=== PATIENT | female | born 1940 | race Caucasian/White ===

== ENCOUNTER 2016-10-10 07:59 | Observation (INO) ==
[2016-10-10] MEDS ORDERED: Aspirin 81 MG TAB.CHEW PO ONE (08:02)
[2016-10-10 08:18] LABS: Basophils % 0.5 %; Eosinophils # 0.2 K/mcL (0.0-0.6); Hematocrit 43.5 % (35.3-44.9); Hemoglobin 13.9 g/dL (11.5-15.4); Immature Granulocytes % 0.3 % (0-4); Immature Platelets 6.9 % (1.1-6.1); Lymphocytes # 1.5 K/mcL (0.6-4.6); Lymphocytes % 22.6 %; Mean Corpuscular Hemoglobin 29.2 pg (28.0-33.3); Mean Corpuscular Volume 91.4 fL (83.0-100.0); Mean Platelet Volume 10.7 fL (9.4-12.4); Monocytes # 0.7 K/mcL (0.0-1.3); Monocytes % 10.5 %; Neutrophils # 4.2 K/mcL (1.6-8.9); Platelet Count 242 K/mcL (140-400); Red Blood Count 4.76 M/mcL (3.82-4.97); Red Cell Distribution Width 13.5 % (11.5-14.5); Segmented Neutrophils % 63.1 %
[2016-10-10 08:23] LABS: INR 1.2
--- NOTE | 2016-10-10 08:24 | Emergency Department Note ---
Disposition Clinical Impression: Atrial fibrillation with RVR Chest pain Qualifiers: Chest pain type: unspecified Qualified Code(s): R07.9 - Chest pain, unspecified Disposition: Admitted As Inpatient Condition: Fair Referrals: Noemí Blount MD [Primary Care Provider] - Forms: ED Satisfaction Letter Time of Disposition: 09:08 Arrhythmia/Palpitations HPI - General Chief Complaint: ED Chest Pain Stated Complaint: chest pressure, hx a-fib Time Seen by Provider: 10/10/16 08:02 Source: patient, family Mode of arrival: ambulatory Limitations: no limitations Nursing Notes Reviewed: Yes Vital Signs Reviewed: Yes - History of Present Illness HPI Narrative: "Alert and oriented nontoxic appearing 76-year-old female presents to emergency Department for chief complaint of" an irregular heartbeat". The patient states that she awoke this morning at approximately 5:00 AM to a sensation of chest pressure and the feeling of palpitations. She states that she had pressure underneath her sternum that she rates a 8 out of 10 on a 10 point scale. This pressure is still present at the time of her emergency department visit. She also states that she felt as though her "heart was fluttering". She states that she has a history of paroxysmal atrial fibrillation. She is on oral diltiazem and metoprolol for this. She does complain of several days' worth of near syncope, shortness of breath, diaphoresis. She denies any radiation of this chest pain or pressure into her upper extremity, neck, or jaw. She denies any fevers, chills, or cough. She denies any noticeable new edema of her lower extremities. She denies vomiting, however she states that she has been extremely nauseous for the past couple of days. She denies any abdominal pain or blood in her stool. She states that she has had numerous episodes of paroxysmal atrial fibrillation, of which, several have required electrical cardioversion. Her cut in station operator is Dr. Kumar. Pt Subjective Complaint: palpitations, irregular heart beat Onset (ago): hour(s) (3 hours ago) Duration: constant Severity: moderate Context: occurred during rest Arrhythmia History: atrial fibrillation, history of electrical cardioversion Associated symptoms: Reports: chest pain, shortness of breath, near-syncope, nausea, diaphoresis - Related Data Home Medications Medication Instructions Recorded Confirmed Ascorbic Acid [Vitamin C] 500 mg PO DAILY 04/18/15 10/05/16 Aspirin 81 mg PO DAILY 04/18/15 10/05/16 Folic Acid 1 mg PO DAILY 04/18/15 10/05/16 Lovastatin [Mevacor] 20 mg PO HS 04/18/15 10/05/16 Metoprolol Tartrate [Lopressor] 100 mg PO BID 04/18/15 10/05/16 Multivit-Min/FA/Lycopen/Lutein 1 tab PO DAILY 04/18/15 10/05/16 [Centrum Silver Tablet] Ranitidine HCl [Zantac] 150 mg PO BID 04/18/15 10/05/16 LORazepam [Ativan] 0.5 mg PO HS PRN 01/09/16 10/05/16 Albuterol Sulfate [Albuterol 8.5 gm IH DAILY 02/14/16 10/05/16 Inhaler] Cetirizine HCl [Zyrtec] 10 mg PO DAILY 02/14/16 10/05/16 Docusate [Colace] 100 mg PO BID PRN 02/14/16 10/05/16 Losartan Potassium [Cozaar] 25 mg PO DAILY 02/14/16 10/05/16 Nystatin POWDER [Nystop] 1 appl TP BID 02/14/16 10/05/16 TraMADol [Ultram] 50 mg PO Q6HR 02/14/16 10/05/16 Previous Rx's Medication Instructions Recorded Ondansetron HCl [Zofran] 4 mg PO Q4H PRN #20 tablet 01/11/16 Ascorbate Calcium [Vitamin C] 1 tab PO DAILY #30 tablet 01/31/16 Docusate [Colace] 1 cap PO BID #60 capsule 02/21/16 Lactulose [Enulose] 15 ml PO BID #900 mls 02/28/16 Potassium Chloride [Klor-Con 1 tab PO DAILY #30 capsule.er 04/08/16 Sprinkle] Lactobacillus Acidophilus 1 each PO DAILY #30 capsule 10/05/16 [Acidophilus Lactobacillus] Levofloxacin [Levaquin] 500 mg PO DAILY #5 tablet 10/05/16 MetroNIDAZOLE [Flagyl] 500 mg PO TID #15 tablet 10/05/16 Allergies Allergy/AdvReac Type Severity Reaction Status Date / Time Penicillins Allergy Rash Verified 02/11/16 09:29 BRANDON Inhibitors AdvReac Cough Verified 02/14/16 07:43 All systems ED: reviewed and negative except as stated. Constitutional: Reports: as per HPI, other (Dizziness). Denies: fever, chills, weakness, weight change Cardiovascular: Reports: as per HPI, chest pain, palpitations, dyspnea on exertion. Denies: orthopnea, edema, syncope (Dizziness) Respiratory: Reports: as per HPI, dyspnea. Denies: cough, wheezes, hemoptysis, stridor, sputum production Gastrointestinal: Reports: nausea. Denies: abdominal pain, vomiting, diarrhea, constipation, hematemesis, melena, hematochezia Musculoskeletal: Denies: back pain, neck pain, arthralgia, myalgia Integumentary: Denies: rash, abrasion, lesions Neurological: Reports: headache. Denies: weakness, numbness, paresthesias, confusion, abnormal gait, vertigo Psychiatric: Denies: anxiety, depression, suicidal thoughts, homicidal thoughts , auditory hallucinations, visual hallucinations Endocrine: Denies: fatigue Past Medical History - Past Medical History Attestation: Yes The following information was validated with the patient. Source: patient Medical history: Reports: arthritis, atrial fibrillation, cancer, GERD, hyperlipidemia, hypertension, SVT, other Surgical history: Reports: appendectomy, cancer surgery, cholecystectomy, hysterectomy, NELLA/BSO, other Psychiatric history: Reports: anxiety PLUG STITCHER history: Reports: bilateral tubal ligation - Social History Smoking Status: Never smoker Smokeless Tobacco Status: No Alcohol use: Reports: none Drug use: Reports: none Physical Exam - General Limitations: no limitations General appearance: alert, in no apparent distress - Head Head exam: atraumatic, normocephalic, normal inspection - Eye Eye exam: Present: normal appearance, PERRL, EOMI. Absent: nystagmus - ENT ENT exam: mucous membranes moist - Neck Neck exam: Present: normal inspection, full ROM, trachea midline - Chest Chest inspection: Present: normal inspection, symmetric chest wall rise - Respiratory Respiratory exam: Present: normal lung sounds bilaterally. Absent: respiratory distress, wheezes, stridor, accessory muscle use, prolonged expiratory phase - Cardiovascular Cardiovascular exam: Present: regular rate, normal rhythm, normal heart sounds - Abdominal Exam Abdominal exam: Present: soft, Non-Tender, normal bowel sounds. Absent: tenderness, distention, guarding, rebound, rigidity - Extremities Exam Extremities exam: Present: normal inspection, full ROM. Absent: tenderness, pedal edema - Back Exam Back exam: Present: normal inspection, full ROM. Absent: tenderness - Neurological Exam Neurological exam: Present: alert, oriented X3 - Psychiatric Psychiatric exam: Present: normal affect, normal mood - Skin Skin exam: Present: warm, dry, intact, normal color. Absent: rash, cyanosis, diaphoresis, erythema, pallor, mottled Course Course Narrative: At this time, cardiac labs as well as a chest x-ray are pending. Aspirin has been administered. Plan to initiate any Cardizem drip due to the patient's atrial fibrillation with RVR up to a rate of 160 bpm. Plan to admit this patient to the hospitalist service for chest pain rule out and atrial fibrillation. 0850: Upon reexamination, the patient is still in atrial fibrillation, however her rate is now controlled at a rate of between 85 and 95 bpm. The patient has not yet been started on the order Cardizem drip. At this time, we will hold off on the Cardizem drip. I have discussed this with Dr. Sheikh. Dr. Sheikh is in agreement. I have discussed this patient's case with Dr. Sheikh. Dr. Sheikh has had a [id number] evaluation with the patient and agrees with the above plan. 0900: I spoke with Dr. Kirkpatrick of the hospitalist service. Dr. Kirkpatrick accepts the patient for admission for further evaluation of chest pain and atrial fibrillation. Vital Signs Temperature 97.1 F L 10/10/16 08:05 Pulse Rate 132 10/10/16 08:05 Respiratory Rate 18 10/10/16 08:05 Blood Pressure 153/125 10/10/16 08:05 O2 Sat by Pulse Oximetry 99 10/10/16 08:05 Temperature 97.1 F L 10/10/16 08:05 Pulse Rate 112 10/10/16 08:22 Respiratory Rate 18 10/10/16 08:22 Blood Pressure 139/85 10/10/16 08:22 O2 Sat by Pulse Oximetry 98 10/10/16 08:22 Oxygen Delivery Oxygen Delivery Room Air Arrhythmia/Palpitations - Medical Records Medical records reviewed: Yes I reviewed the patient's medical records. - Lab Data Lab results reviewed: Yes I reviewed the patient's lab results. Result diagrams: 10/10/16 08:12 10/10/16 08:12 Lab Results 10/10/16 10/10/16 10/10/16 Range/Units 08:12 08:12 08:12 WBC 6.6 (4.3-11.1) K/mcL RBC 4.76 (3.82-4.97) M/mcL Hgb 13.9 (11.5-15.4) g/dL Hct 43.5 (35.3-44.9) % MCV 91.4 (83.0-100.0) fL MCH 29.2 (28.0-33.3) pg MCHC 32.0 (31.6-35.5) g/dL RDW 13.5 (11.5-14.5) % Plt Count 242 (140-400) K/mcL MPV 10.7 (9.4-12.4) fL Immature Gran % 0.3 (0-4) % Seg Neutrophils % 63.1 % Lymphocytes % 22.6 % Monocytes % 10.5 % Eosinophils % 3.0 % Basophils % 0.5 % Neutrophils # 4.2 (1.6-8.9) K/mcL Lymphocytes # 1.5 (0.6-4.6) K/mcL Monocytes # 0.7 (0.0-1.3) K/mcL Eosinophils # 0.2 (0.0-0.6) K/mcL Basophils # 0.0 (0.0-0.2) K/mcL Immature Plt Fraction 6.9 H (1.1-6.1) % PT 13.0 H (9.4-12.1) Seconds INR 1.2 APTT 38.1 H (26.0-36.0) Seconds Sodium (136-145) mEq/L Potassium (3.5-4.5) mEq/L Chloride (98-109) mEq/L Carbon Dioxide (19-29) mEq/L BUN (7-20) mg/dL Creatinine (0.57-1.11) mg/dL Est GFR ( Amer) (> 60) Est GFR (Non-Af Amer) (> 60) BUN/Creatinine Ratio (6-26) Glucose (70-99) mg/dL Calculated Osmolality (280-300) Calcium (8.6-10.8) mg/dL Troponin I (0-0.03) ng/mL B-Natriuretic Peptide 262 H (0-100) pg/mL 10/10/16 10/10/16 Range/Units 08:12 08:12 WBC (4.3-11.1) K/mcL RBC (3.82-4.97) M/mcL Hgb (11.5-15.4) g/dL Hct (35.3-44.9) % MCV (83.0-100.0) fL MCH (28.0-33.3) pg MCHC (31.6-35.5) g/dL RDW (11.5-14.5) % Plt Count (140-400) K/mcL MPV (9.4-12.4) fL Immature Gran % (0-4) % Seg Neutrophils % % Lymphocytes % % Monocytes % % Eosinophils % % Basophils % % Neutrophils # (1.6-8.9) K/mcL Lymphocytes # (0.6-4.6) K/mcL Monocytes # (0.0-1.3) K/mcL Eosinophils # (0.0-0.6) K/mcL Basophils # (0.0-0.2) K/mcL Immature Plt Fraction (1.1-6.1) % PT (9.4-12.1) Seconds INR APTT (26.0-36.0) Seconds Sodium 141 (136-145) mEq/L Potassium 3.8 (3.5-4.5) mEq/L Chloride 106 (98-109) mEq/L Carbon Dioxide 23 (19-29) mEq/L BUN 15 (7-20) mg/dL Creatinine 1.16 H (0.57-1.11) mg/dL Est GFR ( Amer) 55 L (> 60) Est GFR (Non-Af Amer) 45 L (> 60) BUN/Creatinine Ratio 13 (6-26) Glucose 130 H (70-99) mg/dL Calculated Osmolality 295 (280-300) Calcium 10.3 (8.6-10.8) mg/dL Troponin I 0.00 (0-0.03) ng/mL B-Natriuretic Peptide (0-100) pg/mL - EKG Data EKG attestation: Yes I reviewed and interpreted this EKG. EKG results narrative: EKG reviewed by Dr. Sheikh as well. EKG shows atrial fibrillation with a rapid ventricular response at a rate of 142 bpm and a borderline left axis deviation. Rate: tachycardia Rhythm: A.Fib [place]/QRS: left axis deviation Attestation Statement - Attestation Attestation: Patient was seen with FORECAST ANALYST. I reviewed the history, physical, assessment and plan, and agree with the findings. I also personally evaluated this patient and had [id number] time with this patient. 76-year-old female presents to the emergency department with chief complaint of heart racing and chest pressure since early this morning. Patient relates a history of having had intermittent atrial fibrillation which she has been treated and cardioverted for multiple times. She says that her symptoms really started about a week ago with dizziness and some nausea this was intermittent. She has been doing well until today when she woke up this morning with chest pressure rated 8 out of 10 and heart racing. On examination ENT is normal. Heart is irregularly irregular with occasional tachycardia. Lungs are clear. Abdomen soft and nontender. Extremities unremarkable. Neurologically patient is alert and oriented. Psychologically patient has a good demeanor with no particular anxiety. Her initial EKG showed A. fib with RVR. Troponin was negative, other workup labs are essentially unremarkable. Her heart rate and chest pressure improved spontaneously without treatment. We will need to admit the patient for chest pain and rate control. Hospitalist will be notified of admission. I agree with the FORECAST ANALYST assessment and plan.
[2016-10-10 08:26] LABS: Activated Partial Thrombo Time 38.1 Seconds (26.0-36.0)
[2016-10-10] MEDS ORDERED: Ondansetron 4 MG/2 ML VIAL IVP ONE (08:28)
[2016-10-10] MEDS ORDERED: 0.9 % Sodium Chloride 1,000 ML IVC ONE (08:28)
[2016-10-10 08:31] LABS: Calcium 10.3 mg/dL (8.6-10.8); Potassium 3.8 mEq/L (3.5-4.5)
[2016-10-10] MEDS ORDERED: Naloxone 0.4 MG/ML INJ IVP PRN (10:04)
[2016-10-10] MEDS ORDERED: Acetaminophen 325 MG TABLET PO PRN (10:04)
[2016-10-10] MEDS ORDERED: MOM Conc 10 ML UD.LIQ PO PRN (10:04)
[2016-10-10] MEDS ORDERED: Ondansetron 4 MG/2 ML VIAL IVP PRN (10:04)
[2016-10-10] MEDS ORDERED: *HR* HYDROcodone/Acet 5/325 mg TABLET PO PRN (10:04)
--- NOTE | 2016-10-10 10:34 | Internal Med History&Physical ---
<ZacLianne - Last Filed: 10/10/16 18:38> Date of Encounter: 10/10/16 Time of Encounter: 09:45 Assessment and Plan (1) Atrial fibrillation with RVR Current visit: Yes Status: Resolved Pt has history of a-fib/a-fib RVR in the past. Takes Diltiazem ER 60mg po daily and is normally controlled. Pt converted on her own in the ED and now is NSR and denies pain or continued epigastric tightness. Pt had 81mg X4 in ER and takes a beta yg. Dobutamine stress echo in 03/2016 LVEF 60-65% and normal LV structure and function. BNP elevated slightly at 262, most likely from demand , will continue to monitor. Continuous cardiac monitoring Consult cardiology Repeat EKG Serial troponins Cardiac diet Repeat CBC, Chemistry, and BNP in the a.m. Monitor labs (2) Chest pain Current visit: Yes Status: Resolved Pt had 6/10 non-radiating chest pain that began when a-fib RVR began at 0530 this a.m. Resolved after she converted. Will continue to monitor. Plan as above Monitor labs Qualifiers: Chest pain type: other chest pain Qualified Code(s): R07.89 - Other chest pain; R07.8 - Other chest pain Internal Medicine - H&P: HPI Chief complaint: Chest pressure, A-fib Admitted From: Home Plans for Post Hospital Care: Home History of present illness: Ms. Gee is a 76 year old female with prior history of a-fib RVR, HTN, hyperlipidemia, NH, MVP, and Non-Hodgkins lymphoma, who presents to ED this a.m with feeling like "my heart was going to run away" and palpitations. She has had a 1 week history of lightheadedness, diaphoresis, nausea. This a.m at 0530 she knew her heart was out of rhythm and started having epigastric tightness. She denies radiation of the tightness, and it lasted until she went back into NSR in the ED. Rated it 6/10 and is pain free now. She denies any SOB at any time in the last week, including this a.m with the a-fib RVR. Pt has been treated for for diverticulitis with Flagyl and Levaquin, finished both yesterday. Pt also reports 1 month history of facial pain/pressure, rhinorrhea, post nasal drip, and "shocky pains" in caitlyn temples. Pt states that she would like to try Claritin. I have reviewed pt's repeat EKG, NSR with 1st degree block. Rate 64, AL interval 220ms. Past Med Surg Social Fam HX - Past Medical History Source: patient Medical history: arthritis, atrial fibrillation, cancer, GERD, hyperlipidemia, hypertension, SVT, other (diverticulitis 09/2016) Psychiatric history: anxiety - Past Surgical History Surgical History: appendectomy, cancer surgery, cholecystectomy, hysterectomy, NELLA/BSO, other - Social History Smoking Status: Never smoker Smokeless Tobacco Status: No Alcohol use: none Drug use: none - Family History Mother Adopted: No Family Member Ethnicity: Non- Living Status: Hx Family Cardiac Disorders: No Hx Family Respiratory Disorders: No Hx Family Cancer: No Hx Family GI Disorders: No Hx Family Endocrine Disorder: No Hx Family Neuromuscular Disorders: No Hx Family Neurologic Disorders: Yes Hx Family HEENT Disorders: No Hx Family Autoimmune Disorders: No Father Hx Family Cancer: Yes (COLON) Sister Hx Family Cardiac Disorders: Yes (NH in 80s) Hx Family Cancer: Yes (COLON) Brother Hx Family Cardiac Disorders: Yes (NH in 80s) Hx Family Cancer: Yes (NHL, pancrease) Internal Medicine - H&P: Meds Aspirin 81 mg PO DAILY 04/18/15 [History] Metoprolol Tartrate [Lopressor] 100 mg PO BID 04/18/15 [History] Ranitidine HCl [Zantac] 150 mg PO BID 04/18/15 [History] Docusate [Colace] 100 mg PO BID PRN 02/14/16 [History] Losartan Potassium [Cozaar] 25 mg PO DAILY 02/14/16 [History] Diltiazem HCl [Diltiazem ER] 60 mg PO DAILY 10/10/16 [History] Folic Acid 1 mg PO DAILY 10/10/16 [History] Lovastatin [Mevacor] 20 mg PO HS 10/10/16 [History] Allergies Penicillins Allergy (Verified 10/10/16 09:11) Rash BRANDON Inhibitors Adverse Reaction (Verified 10/10/16 09:11) Cough All Systems PM: A 10-system review of systems was performed and is negative for pertinent findings except as documented above in the HPI. - Constitutional Constitutional: no chills, no fatigue, no fever(s), no weakness - EENT Eyes: no change in vision, no photophobia - Cardiovascular Cardiovascular ROS IM: chest pain, diaphoresis, irregular heart rhythm, palpitations, no dyspnea, no edema, no paroxysmal nocturnal dyspnea - Respiratory Respiratory: no cough, no dyspnea, no dyspnea on exertion, no wheezing, no chest congestion - Gastrointestinal Gastrointestinal: nausea, no abdominal pain, no diarrhea, no vomiting - Musculoskeletal Musculoskeletal ROS IM: no numbness, no tingling - Neurological Neurological ROS: no confusion, no dizziness, no weakness - Constitutional Vitals: Temp Pulse Resp BP Pulse Ox 97.4 F L 69 15 141/74 97 10/10/16 09:44 10/10/16 09:44 10/10/16 09:44 10/10/16 09:44 10/10/16 09:44 General appearance: Present: A&O X 3, pleasant, no acute distress - Head Head exam: Present: normal inspection - ENT ENT exam: Present: mucous membranes moist Additional comments: Pt has frontal and maxillary facial tenderness with palpation. - Respiratory Respiratory exam: Present: CTAB. Absent: accessory muscle use, chest wall tenderness, decreased breath sounds, rhonchi, wheezes - Cardiovascular Cardiovascular exam: Present: RRR, +S1, +S2. Absent: distant heart sounds, JVD , systolic murmur - GI/Abdominal GI/Abdominal exam: Present: hyperactive bowel sounds, soft. Absent: tenderness - Extremities Exam Extremities exam: Present: full ROM, normal capillary refill, warm, radial pulses palpable and symetrical. Absent: calf tenderness, joint swelling, pedal edema Additional comments: Caitlyn pedal pulses palpable, +2 - Neurological Exam Neurological exam: Present: alert, oriented X3, no focal deficits, strengths equal and symetr throughout Internal Med - H&P Results - Labs CBC & Chem 7: 10/10/16 08:12 10/10/16 08:12 - EKG Data Prior EKG available for review: yes When compared to previous EKG: there is no significant change EKG comments: 10/10/16 10:41 EKG a-fib RVR rate 142, QRS 96, QT 281 <Fabien Kirkpatrick - Last Filed: 10/11/16 08:58> Date of Encounter: 10/11/16 Internal Medicine - H&P: HPI History of present illness: Ms. Gee is a 76 year old female All Systems PM: A 10-system review of systems was performed and is negative for pertinent findings except as documented above in the HPI. - Constitutional Vitals: Temp Pulse Resp BP Pulse Ox 97.9 F 64 16 131/65 96 10/11/16 07:39 10/11/16 07:39 10/11/16 07:39 10/11/16 07:39 10/11/16 07:39 Internal Med - H&P Results - Labs CBC & Chem 7: 10/11/16 05:29 10/11/16 05:29 Labs: Short CBC 10/11/16 Range/Units 05:29 WBC 4.3 (4.3-11.1) K/mcL Hgb 11.5 D (11.5-15.4) g/dL Hct 34.8 L (35.3-44.9) % Plt Count 164 (140-400) K/mcL Neutrophils # 2.5 (1.6-8.9) K/mcL BMP 10/11/16 05:29 Sodium 140 Potassium 4.3 Chloride 109 Carbon Dioxide 20 BUN 17 Creatinine 0.90 Glucose 96 Calcium 9.0 Cardiac Enzymes 10/10/16 10/10/16 Range/Units 14:43 20:15 Troponin I 0.01 0.01 (0-0.03) ng/mL - Attending Attestation I examined this patient and my medical decision-making was reviewed with the Advanced Practice Provider. I agree with the documented findings, disposition and treatment plan as described except to the extent set forth below. The patient presented with palpitations and chest tightness. Was found to be in atrial fibrillation with rapid ventricular response. Currently converted to normal sinus rhythm. On exam heart is regular rate and rhythm S1-S2. I have discussed the case with cardiology. We will monitor the patient on telemetry. Current troponin. Consider increasing dose of Cardizem.
--- NOTE | 2016-10-10 13:32 | Cardiology Consult Note ---
Date of Encounter: 10/10/16 Time of Encounter: 13:00 Assessment and Plan (1) Atrial fibrillation with RVR Current Visit: Yes Status: Resolved Presents in atrial fibrillation with RVR. Now NSR with IV cardizem. Increase oral cardizem dose to BID. I discussed anticoagulation with coumadin or NOAC. Pt declines d/t husbands bad experience on coumadin. NOAC was discussed further. She states she will consider but declines at this time. Increased risk of CVA discussed and she voiced understanding. TTE 01/2016-LVEF 60%. Normal LV size and function. The right ventricle was normal in size and systolic function. Severely dilated left atrium. 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 Chordal systolic anterior motion (AKSHAT) into the LVOT. No obstruction. Mild-moderate mitral regurgitation, which could be underestimated given patient's BP decreased to 80s/60s with sedation for procedure. R/LHC 02/2016- minimal CAD, normal RV pressure, MR. (2) Mitral valve prolapse Current Visit: No Status: Acute Continued monitoring and medical management recommended. Underwent stress echocardiogram 03/2016 that was negative. Follows with Dr. Kumar. Discussion w patient/family: The assessment and plan as outlined above was discussed with the patient and/or family members who expressed understanding and agreement. All questions were answered. Thank you for involving us in the care of your patient. Please call with any questions. History of Present Illness Consult date: 10/10/16 Requesting physician: Fabien Kirkpatrick Consult reason: Afib Chief complaint: rapid heart rate, chest burning. History of present illness: Ms. 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 She also has follicular lymphoma and follows with oncology, anemia, and hypertension. She presents with rapid heart rate and chest burning. She was found to have atrial fibrillation with RVR HR 120. She was initially started on heparin gtt and converted back to NSR. Cardiology consulted for further recommendation. She declined anticoagulation in the past. She also c/o sinus drainage and headache over the past two weeks. Past Med Surg Social Fam HX - Past Medical History Medical history: arthritis, atrial fibrillation, cancer, GERD, hyperlipidemia, hypertension, SVT, other Psychiatric history: anxiety - Past Surgical History Surgical History: appendectomy, cancer surgery, cholecystectomy, hysterectomy, NELLA/BSO, other - Social History Smoking Status: Never smoker Smokeless Tobacco Status: No Alcohol use: none Drug use: none - Family History Mother Adopted: No Family Member Ethnicity: Non- Living Status: Hx Family Cardiac Disorders: No Hx Family Respiratory Disorders: No Hx Family Cancer: No Hx Family GI Disorders: No Hx Family Endocrine Disorder: No Hx Family Neuromuscular Disorders: No Hx Family Neurologic Disorders: Yes Hx Family HEENT Disorders: No Hx Family Autoimmune Disorders: No Father Hx Family Cancer: Yes (COLON) Sister Hx Family Cardiac Disorders: Yes ([place] in 80s) Hx Family Cancer: Yes (COLON) Brother Hx Family Cardiac Disorders: Yes ([place] in 80s) Hx Family Cancer: Yes (NHL, pancrease) Medications and Allergies Aspirin 81 mg PO DAILY 04/18/15 [History] Metoprolol Tartrate [Lopressor] 100 mg PO BID 04/18/15 [History] Ranitidine HCl [Zantac] 150 mg PO BID 04/18/15 [History] Docusate [Colace] 100 mg PO BID PRN 02/14/16 [History] Losartan Potassium [Cozaar] 25 mg PO DAILY 02/14/16 [History] Diltiazem HCl [Diltiazem ER] 60 mg PO DAILY 10/10/16 [History] Folic Acid 1 mg PO DAILY 10/10/16 [History] Lovastatin [Mevacor] 20 mg PO HS 10/10/16 [History] Allergies Penicillins Allergy (Verified 10/10/16 09:11) Rash BRANDON Inhibitors Adverse Reaction (Verified 10/10/16 09:11) Cough All Systems Review: A 10-system review of systems was performed and is negative for pertinent findings except as documented above in the HPI. Physical Examination Vital Signs, Last 4 Hours Temp Pulse Resp BP Pulse Ox 10/10/16 11:15 97.6 F 62 16 131/64 94 L 10/10/16 09:44 97.4 F L 69 15 141/74 97 10/10/16 09:32 16 119/75 General: Conversant, No Apparent Distress HEENT: Atraumatic, Normocephaly, Mucus Membranes Moist Neck: No JVD, Normal carotid pulses Cardiac: Reg Rate and Rhythm, Normal S1 and S2, No Murmur Lungs: Normal Breath Sounds, No Wheeze, Rales, Rhonchi Neuro: Alert and responsive, No focal deficits noted Abdomen: Soft, Non-Tender Skin: No rashes noted on visualized skin Musculoskeletal: No Chest Wall Tenderness Extremities: No Clubbing, No Cyanosis, No Edema, Normal Pulses Results 10/10/16 08:12 10/10/16 08:12 - Imaging and Cardiology Echo: report reviewed (01/2016-LVEF 60%. Normal LV size and function. The right ventricle was normal in size and systolic function. Severely dilated left atrium. Very small left to right color Doppler consistent with a very small PFO. 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 Chordal systolic anterior motion (AKSHAT) into the LVOT. No obstruction. Mild- moderate mitral regurgitation, which could be underestimated given patient's BP decreased to 80s/60s with sedation for procedure.) - EKG Interpretation EKG results cardiology: personally reviewed (atrial fibrillation with RVR.) Consult Discharge Plan - Plan Referrals: Noemí Blount MD [Primary Care Provider] -
[2016-10-10] MEDS: Loratadine 10 MG TABLET PO SCH (13:40)
[2016-10-10] MEDS: Diltiazem SR (12hr) 60 MG CAPSULE PO SCH (20:22)
[2016-10-11 06:07] LABS: Basophils % 0.7 %; Eosinophils # 0.1 K/mcL (0.0-0.6); Eosinophils % 2.5 %; Hematocrit 34.8 % (35.3-44.9); Lymphocytes # 1.3 K/mcL (0.6-4.6); Lymphocytes % 29.6 %; Mean Corpuscular Volume 90.9 fL (83.0-100.0); Mean Platelet Volume 11.5 fL (9.4-12.4); Monocytes # 0.4 K/mcL (0.0-1.3); Monocytes % 10.2 %; Neutrophils # 2.5 K/mcL (1.6-8.9); Platelet Count 164 K/mcL (140-400); Red Blood Count 3.83 M/mcL (3.82-4.97); Red Cell Distribution Width 13.7 % (11.5-14.5)
[2016-10-11 06:08] LABS: Hemoglobin 11.5 g/dL (11.5-15.4)
[2016-10-11 06:19] LABS: BUN/Creatinine Ratio 19 (6-26); Blood Urea Nitrogen 17 mg/dL (7-20); Carbon Dioxide 20 mEq/L (19-29); Chloride 109 mEq/L (98-109); Glucose 96 mg/dL (70-99); Osmolality,Calculated 291 (280-300); Potassium 4.3 mEq/L (3.5-4.5); Sodium 140 mEq/L (136-145); eGFR For African Americans > 60 (> 60); eGFR For Non-African Americans > 60 (> 60)
[2016-10-11 07:42] VITALS: BP 131/65
[2016-10-11] MEDS: Diltiazem SR (12hr) 60 MG CAPSULE PO SCH (08:37)
[2016-10-11] MEDS: Loratadine 10 MG TABLET PO SCH (08:38)
[2016-10-11] MEDS ORDERED: Famotidine 20 MG TABLET PO SCH (09:00)
[2016-10-11] MEDS ORDERED: Folic Acid 1 MG TABLET PO SCH (09:00)
[2016-10-11] MEDS ORDERED: Aspirin 81 MG TAB.CHEW PO SCH (09:00)
[2016-10-11] MEDS ORDERED: Metoprolol 100 MG TABLET PO SCH (10:15)
[2016-10-11] MEDS ORDERED: Diltiazem SR (12hr) 60 MG CAPSULE PO SCH (10:15)
--- NOTE | 2016-10-11 11:35 | Discharge Summary ---
Date of Encounter: 10/11/16 Time of Encounter: 11:33 - Discharge Diagnosis (1) Atrial fibrillation Priority: Primary Status: Acute Qualifiers: Atrial fibrillation type: paroxysmal Qualified Code(s): I48.0 - Paroxysmal atrial fibrillation (2) Chest pain Priority: Secondary Status: Resolved Qualifiers: Chest pain type: other chest pain Qualified Code(s): R07.89 - Other chest pain; R07.8 - Other chest pain (3) Hypertension Priority: Secondary Status: Chronic Qualifiers: Hypertension type: essential hypertension Qualified Code(s): I10 - Essential (primary) hypertension (4) Hyperlipidemia Priority: Secondary Status: Chronic Qualifiers: Hyperlipidemia type: mixed hyperlipidemia Qualified Code(s): E78.2 - Mixed hyperlipidemia (5) Mitral valve prolapse Priority: Secondary Status: Chronic (6) CAD (coronary artery disease) Priority: Secondary Status: Chronic Qualifiers: Coronary Disease-Associated Artery/Lesion type: [place] artery [place] vs. transplanted heart: [place] heart Associated angina: without angina Qualified Code(s): I25.10 - Atherosclerotic heart disease of [place] coronary artery without angina pectoris - Discharge Medications Prescriptions: Diltiazem SR (12hr) [Cardizem SR] 60 mg PO BID #60 cap.er.12h Home Medications: Aspirin 81 mg PO DAILY 04/18/15 [History] Metoprolol Tartrate [Lopressor] 100 mg PO BID 04/18/15 [History] Ranitidine HCl [Zantac] 150 mg PO BID 04/18/15 [History] Docusate [Colace] 100 mg PO BID PRN 02/14/16 [History] Losartan Potassium [Cozaar] 25 mg PO DAILY 02/14/16 [History] Folic Acid 1 mg PO DAILY 10/10/16 [History] Lovastatin [Mevacor] 20 mg PO HS 10/10/16 [History] Diltiazem SR (12hr) [Cardizem SR] 60 mg PO BID #60 cap.er.12h 10/11/16 [Rx] Allergies/Adverse Reactions: Allergies Penicillins Allergy (Verified 10/10/16 09:11) Rash BRANDON Inhibitors Adverse Reaction (Verified 10/10/16 09:11) Cough Procedures/tests Complete & Pending: Procedures Performed prior 72 hours Category Date Time Status EKG [ECG 12 lead ECG] [ECG] Stat Y 10/10/16 10:45 Ordered Date of admission: 10/10/16 09:08 Primary care physician: Noemí Blount Consults: 10/10/16 10:47 Consult to Cardiology [CONS] Stat Comment: Consulting Provider: Caryn Huff Reason for Consult: History of a-fib RVR, a-fib RVR today at 0530, converted on her own in ER. Pt is on 2NE, remains NSR now. Time Notified: 10:48 Call Completed: No Discharging clinician: Jordan Powell Anticipated date of discharge: 10/11/16 - Patient Status Disposition: Home, Self-Care Condition: Good Functional capacity at discharge: independent ambulation Overall status at discharge: patient is back to baseline - Discharge Instructions Follow Up With: Noemí Blount MD [Primary Care Provider] - - Diet and Activity Activity: resume usual activities as tolerated Diet: advance to your usual diet Hospital course: Ms. Gee is a 76 year old female with history of parox a fib and HTN presented to ED with tachycardia and chest burning. She was found to be in rapid atrial fibrillation and subsequently placed in observation. Ms. Gee was placed in observation on [place]. Prior to arriving on the floor she converted to NSR. She had no further pain. She was evaluated by cardiology and her Cardizem was increased to BID. She discussed anticoagulation with cardiology and will remain on ASA until follow up with Dr. Kumar. On 10/11/16 she felt well. She remained in NSR. BP was good. She was afebrile. At that time she was felt medically stable for d/c home on increased dose of Cardizem. - Time Spent with Patient Total time spent providing and/or coordinating discharge services: 38min - Constitutional Vitals: Temp Pulse Resp BP Pulse Ox 97.9 F 64 16 131/65 96 10/11/16 07:39 10/11/16 07:39 10/11/16 07:39 10/11/16 07:39 10/11/16 07:39 General appearance: Present: A&O X 3, pleasant - Head Head exam: Present: normocephalic - Eye Eye exam: Present: conjuntiva pink - ENT ENT exam: Present: mucous membranes moist - Respiratory Respiratory exam: Present: CTAB - Cardiovascular Cardiovascular exam: Present: RRR, systolic murmur. Absent: tachycardia - GI/Abdominal GI/Abdominal exam: Present: soft. Absent: tenderness - Extremities Exam Extremities exam: Present: warm - Neurological Exam Neurological exam: Present: alert, oriented X3, no focal deficits - Skin Skin exam: Present: dry, warm. Absent: rash
--- NOTE | 2016-10-11 23:32 | Electrocardiograph Report ---
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
--- NOTE | 2016-10-12 11:17 | Electrocardiograph Report ---
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
== END 2016-10-11 12:46 | disposition home or self-care (01) ==
LOC: 2NENU 07:59 → EMEROO 07:59 → 2NENU 09:36
PROVIDERS: ADMIT Internal Medicine; ATTEND Internal Medicine

== ENCOUNTER 2017-01-07 14:00 | Observation (INO) ==
--- NOTE | 2017-01-07 15:13 | Emergency Department Note ---
Disposition Clinical Impression: Lower gastrointestinal hemorrhage, Elevated INR, Frail elderly, History of diverticulitis, History of atrial fibrillation, External hemorrhoids, Leukopenia Disposition: Admitted As Inpatient Referrals: NO,PCP [Primary Care Provider] - Forms: ED Satisfaction Letter General Adult HPI - General Chief complaint: ED GI Bleed Stated complaint: Bloody stool Time Seen by Provider: 01/07/17 15:11 Source: patient - History of Present Illness HPI Narrative: 76-year-old female reports to the emergency department complaining of bright red blood per rectum which started early this morning. There is no history of blackened stool no history of emesis or abdominal pain. The patient takes Coumadin for her atrial fibrillation. There is no history of headache neck stiffness rash or fever no chest pain or acute shortness of breath. No coughing of blood or leg swelling reported. There is no history of bleeding otherwise. No urinary symptoms or acute back pain. The patient has no known aneurysms. She states she has a history of lymphoma and has had colonoscopies in the past. She also has a history of diverticulitis. There is no history of fever. No syncope. No funmi weakness. No unilateral arm or leg numbness or weakness no trouble walking talking hearing seeing or speaking. Pain Scale: 0 - Related Data Home Medications Medication Instructions Recorded Confirmed Metoprolol Tartrate [Lopressor] 100 mg PO BID 04/18/15 11/30/16 Ranitidine HCl [Zantac] 150 mg PO BID 04/18/15 11/30/16 Docusate [Colace] 100 mg PO BID PRN 02/14/16 11/30/16 Losartan Potassium [Cozaar] 25 mg PO DAILY 02/14/16 11/30/16 Folic Acid 1 mg PO DAILY 10/10/16 11/30/16 Lovastatin [Mevacor] 20 mg PO HS 10/10/16 11/30/16 Warfarin [Coumadin] 5 mg PO AD 11/30/16 11/30/16 Previous Rx's Medication Instructions Recorded Diltiazem SR (12hr) [Cardizem SR] 60 mg PO BID #60 cap.er.12h 10/11/16 Calcium Carbonate/Vitamin D3 1 each PO DAILY #30 tablet 11/30/16 [Calcium 600 + Vit D Tablet] Pantoprazole Sodium [Protonix] 40 mg PO DAILY 30 Days 12/22/16 Allergies Allergy/AdvReac Type Severity Reaction Status Date / Time Penicillins Allergy Rash Verified 10/10/16 09:11 BRANDON Inhibitors AdvReac Cough Verified 10/10/16 09:11 All systems ED: reviewed and negative except as stated. 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 Absent: tenderness - Chest Chest inspection: Present: symmetric chest wall rise. Absent: tenderness - Respiratory Respiratory exam: Present: normal lung sounds bilaterally. Absent: respiratory distress - Cardiovascular Cardiovascular exam: Present: regular rate, irregular rhythm - Abdominal Exam Abdominal exam: Present: soft, Non-Tender, normal bowel sounds. Absent: tenderness, distention, guarding, rebound, rigidity, pulsatile mass - Rectal Exam Recreational Programs Director present during exam: Yes (Nurse) Rectal exam: Present: normal rectal tone, hemorrhoids, other (External hemorrhoids nonthrombosed nonbleeding, minimal stool on the glove, no red or black material.). Absent: decreased rectal tone, black stool, bloody stool - Extremities Exam Extremities exam: Present: normal inspection, full ROM, normal capillary refill. Absent: tenderness, pedal edema, joint swelling, calf tenderness - Expanded Lower Extremity Exam Lower leg exam: Absent: Homans' sign Neurovascular/Tendon exam: Present: normal capillary refill. Absent: pulse deficit, motor deficit, sensory deficit, tendon deficit, extremity cold to touch , pallor - Back Exam Back exam: Present: normal inspection, full ROM. Absent: tenderness, CVA tenderness (R), CVA tenderness (L), vertebral tenderness - Neurological Exam Neurological exam: Present: alert, oriented X3, CN II-XII intact. Absent: motor sensory deficit - Psychiatric Psychiatric exam: Present: normal affect, normal mood - Skin Skin exam: Present: warm, dry, intact, normal color. Absent: rash, cyanosis, diaphoresis, erythema, pallor, mottled Course Vital Signs Temperature 97.9 F 01/07/17 14:11 Pulse Rate 67 01/07/17 14:11 Respiratory Rate 16 01/07/17 14:11 Blood Pressure 138/80 01/07/17 14:11 O2 Sat by Pulse Oximetry 95 01/07/17 14:11 Temperature 97.9 F 01/07/17 14:11 Pulse Rate 66 01/07/17 17:19 Respiratory Rate 16 01/07/17 17:19 Blood Pressure 148/79 01/07/17 17:19 O2 Sat by Pulse Oximetry 96 01/07/17 17:19 Oxygen Delivery Oxygen Delivery Room Air Medical Decision Making - MDM Narrative Medical decision making narrative: The patient is elderly, she is taking Coumadin with an INR of 2.2, she describes significant bright red blood per rectum. Her vital signs are stable and hemoglobin is stable. She reports a history of diverticulitis, she has no abdominal pain on my examination. There is no history of previous colon cancer. The patient does have external hemorrhoids which are nonthrombosed and nonbleeding. Based on the patient's age, history of bright red blood per rectum , heme positive stool, anticoagulation therapy and elevated INR, and associated history of diverticulitis, apparent lower GI hemorrhage source yet undetermined , I thought it would be appropriate to admit the patient to the hospital. I reviewed with the admitting APC who has accepted the patient to their care. - Lab Data Lab results reviewed: Yes I reviewed the patient's lab results. Result diagrams: 01/07/17 15:11 01/07/17 15:11 Lab Results 01/07/17 01/07/17 01/07/17 Range/Units 15:11 15:11 15:11 WBC 3.7 L (4.3-11.1) K/mcL RBC 4.21 (3.82-4.97) M/mcL Hgb 12.7 (11.5-15.4) g/dL Hct 39.2 (35.3-44.9) % MCV 93.1 (83.0-100.0) fL MCH 30.2 (28.0-33.3) pg MCHC 32.4 (31.6-35.5) g/dL RDW 14.4 (11.5-14.5) % Plt Count 191 (140-400) K/mcL MPV 11.9 (9.4-12.4) fL Immature Gran % 0.3 (0-4) % Seg Neutrophils % 52.5 % Lymphocytes % 31.0 % Monocytes % 11.1 % Eosinophils % 4.3 % Basophils % 0.8 % Neutrophils # 1.9 (1.6-8.9) K/mcL Lymphocytes # 1.1 (0.6-4.6) K/mcL Monocytes # 0.4 (0.0-1.3) K/mcL Eosinophils # 0.2 (0.0-0.6) K/mcL Basophils # 0.0 (0.0-0.2) K/mcL PT 24.5 H (9.4-12.1) Seconds INR 2.2 APTT 43.7 H (26.0-36.0) Seconds Sodium 141 (136-145) mEq/L Potassium 4.0 (3.5-4.5) mEq/L Chloride 108 (98-109) mEq/L Carbon Dioxide 25 (19-29) mEq/L BUN 7 (7-20) mg/dL Creatinine 0.89 (0.57-1.11) mg/dL Est GFR ( Amer) > 60 (> 60) Est GFR (Non-Af Amer) > 60 (> 60) BUN/Creatinine Ratio 8 (6-26) Glucose 89 (70-99) mg/dL Calculated Osmolality 289 (280-300) Calcium 9.1 (8.6-10.8) mg/dL Total Bilirubin 0.5 (0.2-1.2) mg/dL Direct Bilirubin 0.2 (0.0-0.5) mg/dL Indirect Bilirubin 0.3 (0.0-1.2) mg/dL AST 16 (5-34) Units/L ALT 10 (0-55) Units/L Alkaline Phosphatase 70 (38-126) Units/L Troponin I (0-0.03) ng/mL C-Reactive Protein 2 (Less than 5) mg/L Serum Total Protein 7.0 (6.0-8.3) g/dL Albumin 4.0 (3.5-5.0) g/dL Globulin 3.0 (2.4-3.5) g/dL Albumin/Globulin Ratio 1.3 (1.1-2.2) Stool Occult Blood (Negative) Blood Type Antibody Screen 01/07/17 01/07/17 01/07/17 Range/Units 15:11 15:11 17:33 WBC (4.3-11.1) K/mcL RBC (3.82-4.97) M/mcL Hgb (11.5-15.4) g/dL Hct (35.3-44.9) % MCV (83.0-100.0) fL MCH (28.0-33.3) pg MCHC (31.6-35.5) g/dL RDW (11.5-14.5) % Plt Count (140-400) K/mcL MPV (9.4-12.4) fL Immature Gran % (0-4) % Seg Neutrophils % % Lymphocytes % % Monocytes % % Eosinophils % % Basophils % % Neutrophils # (1.6-8.9) K/mcL Lymphocytes # (0.6-4.6) K/mcL Monocytes # (0.0-1.3) K/mcL Eosinophils # (0.0-0.6) K/mcL Basophils # (0.0-0.2) K/mcL PT (9.4-12.1) Seconds INR APTT (26.0-36.0) Seconds Sodium (136-145) mEq/L Potassium (3.5-4.5) mEq/L Chloride (98-109) mEq/L Carbon Dioxide (19-29) mEq/L BUN (7-20) mg/dL Creatinine (0.57-1.11) mg/dL Est GFR ( Amer) (> 60) Est GFR (Non-Af Amer) (> 60) BUN/Creatinine Ratio (6-26) Glucose (70-99) mg/dL Calculated Osmolality (280-300) Calcium (8.6-10.8) mg/dL Total Bilirubin (0.2-1.2) mg/dL Direct Bilirubin (0.0-0.5) mg/dL Indirect Bilirubin (0.0-1.2) mg/dL AST (5-34) Units/L ALT (0-55) Units/L Alkaline Phosphatase (38-126) Units/L Troponin I 0.01 (0-0.03) ng/mL C-Reactive Protein (Less than 5) mg/L Serum Total Protein (6.0-8.3) g/dL Albumin (3.5-5.0) g/dL Globulin (2.4-3.5) g/dL Albumin/Globulin Ratio (1.1-2.2) Stool Occult Blood Positive A (Negative) Blood Type O NEGATIVE Antibody Screen NEGATIVE - Radiology Data Radiology results reviewed: Yes I reviewed the patient's radiology results. - EKG Data EKG #1 EKG shows normal: sinus rhythm Rate: normal Rhythm: NSR Voltage: c/w LVH Interpretation: no acute changes
[2017-01-07 16:01] LABS: Basophils % 0.8 %; Eosinophils # 0.2 K/mcL (0.0-0.6); Eosinophils % 4.3 %; Hematocrit 39.2 % (35.3-44.9); Hemoglobin 12.7 g/dL (11.5-15.4); Immature Granulocytes % 0.3 % (0-4); Lymphocytes # 1.1 K/mcL (0.6-4.6); Mean Corpuscular HGB Conc 32.4 g/dL (31.6-35.5); Mean Corpuscular Hemoglobin 30.2 pg (28.0-33.3); Mean Corpuscular Volume 93.1 fL (83.0-100.0); Mean Platelet Volume 11.9 fL (9.4-12.4); Monocytes # 0.4 K/mcL (0.0-1.3); Monocytes % 11.1 %; Neutrophils # 1.9 K/mcL (1.6-8.9); Platelet Count 191 K/mcL (140-400); Red Blood Count 4.21 M/mcL (3.82-4.97); Red Cell Distribution Width 14.4 % (11.5-14.5); Segmented Neutrophils % 52.5 %
[2017-01-07 16:10] LABS: INR 2.2; Prothrombin Time 24.5 Seconds (9.4-12.1)
[2017-01-07 16:12] LABS: Activated Partial Thrombo Time 43.7 Seconds (26.0-36.0)
[2017-01-07 16:20] LABS: Alanine Aminotransferase 10 Units/L (0-55); Albumin/Globulin Ratio 1.3 (1.1-2.2); Alkaline Phosphatase 70 Units/L (38-126); Aspartate Amino Transferase 16 Units/L (5-34); BUN/Creatinine Ratio 8 (6-26); Bilirubin,Direct 0.2 mg/dL (0.0-0.5); Bilirubin,Indirect 0.3 mg/dL (0.0-1.2); Bilirubin,Total 0.5 mg/dL (0.2-1.2); Blood Urea Nitrogen 7 mg/dL (7-20); C-Reactive Protein 2 mg/L (Less than 5); Calcium 9.1 mg/dL (8.6-10.8); Carbon Dioxide 25 mEq/L (19-29); Chloride 108 mEq/L (98-109); Glucose 89 mg/dL (70-99); Osmolality,Calculated 289 (280-300); Sodium 141 mEq/L (136-145); eGFR For African Americans > 60 (> 60); eGFR For Non-African Americans > 60 (> 60)
[2017-01-07] MEDS ORDERED: *HR* HYDROmorphone (PF) 1 MG/ML SYRINGE IVP ONE (17:24)
[2017-01-07] MEDS ORDERED: Naloxone 0.4 MG/ML INJ IVP PRN (23:52)
[2017-01-07] MEDS ORDERED: Acetaminophen 325 MG TABLET PO PRN (23:52)
[2017-01-07] MEDS ORDERED: *HR* HYDROmorphone (PF) 1 MG/ML SYRINGE IVP PRN (23:52)
[2017-01-07] MEDS ORDERED: Ondansetron 4 MG/2 ML VIAL IVP PRN (23:52)
[2017-01-08] MEDS ORDERED: Loratadine 10 MG TABLET PO PRN
[2017-01-08] MEDS ORDERED: Albuterol 2.5 MG/3 ML NEBULIZER IH PRN
--- NOTE | 2017-01-08 00:08 | Internal Med History&Physical ---
Date of Encounter: 01/08/17 Time of Encounter: 01:00 Assessment and Plan (1) BRBPR (bright red blood per rectum) Status: Acute . (2) Chronic anticoagulation Status: Acute . (3) Lower gastrointestinal hemorrhage Status: Acute . (4) Frail elderly Status: Acute . (5) External hemorrhoids Status: Acute . (6) Atrial fibrillation Status: Acute . Qualifiers: Atrial fibrillation type: chronic Qualified Code(s): I48.2 - Chronic atrial fibrillation Internal Medicine - H&P: HPI Chief complaint: Bloody stool Admitted From: Emergency Dept Plans for Post Hospital Care: Home History of present illness: Ms. Gee is a 76 year old female with history significant for hypertension, dyslipidemia, GERD, PAF/chronic A/C (warfarin), RAD/asthma, allergic rhinitis, CKD III, depression/anxiety, vitamin B12 def, OA/OP/chr MSKpain, DDD/DJD/lumbar spinal stenosis/radiculopathy, nodular/follicular non-Hodgkins lymphoma s/p chemo, SQ CCa of nose, PSVT, iron def anemia, diverticulosis coli/hemorrhoids, nonsmoker, etc.. The patient was admitted to [facility] via the emergency department presents with concerns pertaining to a bright red blood per rectum witnessed in the toilet bowl, on the tissue and in her stool the morning of presentation the patient denied any history of black and tarry looking stools. Denied any history of bloody or coffee ground emesis or abdominal pain. Technologist chronic constipation and had been straining at her bowel movements days before witnessed bleeding. Patient has paroxysmal atrial fibrillation and has been compliant with prescribed Coumadin therapy. Her measured INR measurements have been consistently within therapeutic range. Denied any other significant symptoms or concerns. Findings in the ED: Vital signs stable. Afebrile. WBC 3.7 and hemoglobin 12.7 platelets 191,000. Differential normal. PT 24.5. INR 2.2. APTT 43.7. Comprehensive metabolic panel normal. BUN 7 creatinine 0.89. C-reactive protein. Stool occult blood positive. Troponin 0.01. EKG normal sinus rhythm. No acute ischemic changes. Voltage criteria for LVH. Chest x-ray demonstrated no acute or active cardiopulmonary process. Preliminary impressions suggest wipe hematochezia, painless, in the setting of chronic constipation and chronic anticoagulation with warfarin. Patient's history has to find evidence for diverticular disease as well as internal and external hemorrhoidal disease. Indeed symptoms and findings are most suggestive of the latter. However given patient's increased risk for complicated course, workup and treatments will proceed comprehensibly. The patient was visited and interviewed and examined. Cumulative laboratory and radiographic data base will be considered and discussed. Pertinent ancillary medical records including ECW and PCI documentation when available was reviewed and considered. Given the patient's presenting concerns, past medical history, clinical findings and symptoms, she is admitted at this time will undergo further evaluation and disposition. Orders were written as per the computerized physician order checker system.......................................................................... .................... Consultative opinions will be sought as clinical circumstances justify. Initial consultative opinion has been requested of gastroenterology. Pain management needs will be addressed. Laboratory=radiographic data base will be updated as appropriate. Studies include: pt/inr, aptt, ddimer, gi stool panel, cardiac injury panel, BNP, metabolic and hematologic panel, magnesium, phosphorus, ionized calcium, thyroid panel, lipid profile, A1c, C-peptide, CRP, sedimentation rate, blood gas , lactic acid, serologies, etc. Precautions: Aspiration, fall, delirium protocol/surveillance initiated. Telemetry with continuous hemodynamic monitoring and pulse oximetry initiated. Orthostatic vital signs. Empiric antibiotic coverage: Intravenous ciprofloxacin and metronidazole pending culture data. Culturelle Special studies: CT chest/abd-pevis, chest x-ray, telemetry, EKG. Pulmonary toilet: Incentive spirometry. PRN: aerosol bronchodilator, mucolytic, antitussive. Supplemental oxygen. Corticosteroid therapy PRN. CPAP/BiPAP supplemental oxygen delivery PRN. Aerosol Mucomyst therapy PRN. Fluid and electrolyte repletion efforts will proceed. Careful attention to fluid balance and renal recovery will be emphasized. Avoidance of nephrotoxic exposure and adverse drug drug interaction in the setting of impaired renal function will be monitored closely. Acute coronary syndrome protocol/surveillance initiated. Chronic anticoagulation, warfarin, withheld pending completion of clinical evaluations.. Consider iv heparin drip versus Lovenox bridge therapy introduction. DVT and PUD prophylaxis initiated: PPI therapy, intermittent pneumatic cuffs/ TEDs. Early ambulation will be encouraged. Immunization updates recommended. Influenza and pneumococcal vaccinations as part of ongoing preventative healthcare recommendations strongly recommended. Smoking cessation counseling briefly addressed. Patient is a nonsmoker. Advanced care directive discussion briefly addressed. Patient does not declare any healthcare restrictions at this time. Cardiovascular risk appraisal and cardiovascular risk reduction efforts will be emphasized. Physical=occupational therapy may be asked to evaluate patient's functional capacity and progress mobility if her circumstances justify. Nutrition/dietary education. Supplementary diet options counseling.. Outpatient medication schedules will be reviewed, confirmed and facilitated as appropriate. Reconciliation of home treatments including adjustments, substitutions and reintroduction into the treatment regimen will address necessary maintenance therapies for chronic pre-existing medical conditions. Plan of care has been reviewed and discussed in detail with the patient. Questions addressed. Hospital course dictated by clinical findings, treatment response and potential consultative interventions. Patient is at risk for further acute clinical decline and morbidity due to her advanced age, presenting chief complaints and comorbid conditions. Condition is serious. Prognosis is guarded. CODE STATUS is full. Past Med Surg Social Fam HX - Past Medical History Source: old records reviewed Medical history: arthritis, atrial fibrillation (chr anticoagulation w/ warfarin.), cancer (MGUS. Skin Ca unspecified. ), CHF, coronary artery disease, GERD, GI bleed (Hemorrhoids. Diverticulosis coli. H/O acute diverticulitis. Chr constipation.), hyperlipidemia, hypertension, malignancy (Nodular non-Hodgkins lymphoma, H/O. Monoclonal Gammopathy.), myocardial infarction, osteoporosis ( Chronic pain syndrome. Lumbar spinal stenosis/LBP/radiculopathy. B12 and Folate def. Vit D def.), renal disease (CKD III.), SVT, venous stasis (Varicose veins.), valvular heart disease (Severe MV regurg/MVprolapse), other (Iron deficiency anemia. DDD/DJD of spine. ) Psychiatric history: anxiety, depression, other - Past Surgical History Surgical History: appendectomy, cancer surgery (Skin cancer removed from nose. Excision of enlarged left inguinal lymph node. Benign pelvic cyst adenoma removal.), cataract, cholecystectomy, hysterectomy, NELLA/BSO, other ( Colonoscopy. EGD.), LE vascular intervention - Social History Smoking Status: Never smoker Smokeless Tobacco Status: No Alcohol use: none Drug use: none Occupational status: unemployed, other Current living situation: Home - Independent, Home Activity Level: Independent ambulation, Mostly sedentary Recent Out of Country Travel Within the Last 8 Weeks: No Exposure or Possible Exposure to Illness During Travel: No - Family History Mother Adopted: No Family Member Ethnicity: Non- Living Status: Hx Family Cardiac Disorders: Yes (stroke) Hx Family Respiratory Disorders: No Hx Family Cancer: No Hx Family GI Disorders: No Hx Family Endocrine Disorder: No Hx Family Neuromuscular Disorders: No Hx Family Neurologic Disorders: Yes Hx Family HEENT Disorders: No Hx Family Autoimmune Disorders: No Father Living Status: Hx Family Cancer: Yes (COLON) Hx Family Neurologic Disorders: Yes (Dementia) Sister Living Status: Hx Family Cardiac Disorders: Yes (DC in 80s) Hx Family Cancer: Yes (Colon) Brother Living Status: Hx Family Cardiac Disorders: Yes (DC in 80s) Hx Family Cancer: Yes (Pancreatic) Internal Medicine - H&P: Meds Metoprolol Tartrate [Lopressor] 100 mg PO BID 04/18/15 [History] Ranitidine HCl [Zantac] 150 mg PO BID 04/18/15 [History] Losartan Potassium [Cozaar] 25 mg PO DAILY 02/14/16 [History] Folic Acid 1 mg PO DAILY 10/10/16 [History] Lovastatin [Mevacor] 20 mg PO HS 10/10/16 [History] Albuterol Neb [Proventil Neb] 2.5 mg IH TID PRN 01/07/17 [History] Cyanocobalamin (Vitamin B-12) [Vitamin B12] 1,000 mcg PO DAILY 01/07/17 [History ] Diltiazem SR (12hr) [Cardizem SR] 60 mg PO DAILY 01/07/17 [History] Loratadine [Claritin] 10 mg PO DAILY PRN 01/07/17 [History] Pantoprazole Sodium [Protonix] 40 mg PO DAILY PRN 01/07/17 [History] Tramadol HCl [Ultram] 50 mg PO Q6H PRN 01/07/17 [History] Docusate [Colace] 100 mg PO BID PRN #60 capsule 01/08/17 [Rx] LORazepam [Ativan] 0.5 mg PO HS #0 01/08/17 [Rx] Allergies Penicillins Allergy (Verified 10/10/16 09:11) Rash BRANDON Inhibitors Adverse Reaction (Verified 10/10/16 09:11) Cough All Systems PM: A 10-system review of systems was performed and is negative for pertinent findings except as documented above in the HPI. - Constitutional Constitutional: as per HPI, no chills, no fever(s), no night sweats - EENT Eyes: as per HPI, no change in vision, no discharge, no pain, no photophobia - Constitutional Vitals: Temp Pulse Resp BP Pulse Ox 97.5 F L 63 14 115/63 95 01/07/17 23:32 01/07/17 23:32 01/07/17 23:32 01/07/17 23:32 01/07/17 23:32 Vital Signs Temp Pulse Resp BP Pulse Ox 01/07/17 23:32 97.5 F L 63 14 115/63 95 01/07/17 21:19 97.9 F 61 15 156/79 98 01/07/17 19:24 16 156/73 01/07/17 19:00 61 164/69 01/07/17 17:19 66 16 148/79 96 01/07/17 15:26 61 16 179/82 97 01/07/17 14:11 97.9 F 67 16 138/80 95 Intake and Output 01/07/17 01/07/17 01/08/17 15:59 23:59 07:59 Other: # Voids 1 Weight 68.946 kg 68.583 kg General appearance: Present: mild distress, A&O X 3, answers questions appropriately - Head Head exam: Present: atraumatic, normocephalic - Eye Eye exam: Present: EOMI, PERRL, conjuntiva pink, sclera anicteric Pupils: Present: normal accommodation - ENT ENT exam: Present: mucous membranes moist, normal oropharynx. Absent: TM's normal bilaterally - Neck Neck exam general surgery: Present: supple, trachea midline. Absent: lymphadenopathy - Respiratory Respiratory exam: Present: decreased breath sounds, CTAB. Absent: accessory muscle use, rales, rhonchi, wheezes - Cardiovascular Cardiovascular exam: Present: distant heart sounds, RRR, +S1, +S2. Absent: diastolic murmur, gallop, rubs, systolic murmur - GI/Abdominal GI/Abdominal exam: Present: normal bowel sounds, soft, no peritoneal signs. Absent: distended, tenderness - Extremities Exam Extremities exam: Present: warm, radial pulses palpable and symetrical. Absent : calf tenderness, cyanotic, pedal edema - Neurological Exam Neurological exam: Present: alert, CN II-XII intact, oriented X3, no focal deficits. Absent: pronater drift, facial droop, speech deficit - Psychiatric Psychiatric exam: Present: normal affect, normal mood - Skin Skin exam: Present: dry, intact, warm. Absent: petechiae, rash, urticaria, vesicles Internal Med - H&P Results - Labs CBC & Chem 7: 01/08/17 15:00 01/08/17 09:02 Labs: Short CBC 01/07/17 Range/Units 15:11 WBC 3.7 L (4.3-11.1) K/mcL Hgb 12.7 (11.5-15.4) g/dL Hct 39.2 (35.3-44.9) % Plt Count 191 (140-400) K/mcL Neutrophils # 1.9 (1.6-8.9) K/mcL BMP 01/07/17 Range/Units 15:11 Sodium 141 (136-145) mEq/L Potassium 4.0 (3.5-4.5) mEq/L Chloride 108 (98-109) mEq/L Carbon Dioxide 25 (19-29) mEq/L BUN 7 (7-20) mg/dL Creatinine 0.89 (0.57-1.11) mg/dL Glucose 89 (70-99) mg/dL Calcium 9.1 (8.6-10.8) mg/dL Cardiac Enzymes 01/07/17 Range/Units 15:11 Troponin I 0.01 (0-0.03) ng/mL Liver Function 01/07/17 Range/Units 15:11 Total Bilirubin 0.5 (0.2-1.2) mg/dL Direct Bilirubin 0.2 (0.0-0.5) mg/dL AST 16 (5-34) Units/L ALT 10 (0-55) Units/L Alkaline Phosphatase 70 (38-126) Units/L Albumin 4.0 (3.5-5.0) g/dL Abnormal lab results WBC 3.7 K/mcL (4.3-11.1) L 01/07/17 15:11 PT 24.5 Seconds (9.4-12.1) H 01/07/17 15:11 APTT 43.7 Seconds (26.0-36.0) H 01/07/17 15:11 Stool Occult Blood Positive (Negative) A 01/07/17 17:33 Laboratory Results WBC 3.7 K/mcL (4.3-11.1) L 01/07/17 15:11 RBC 4.21 M/mcL (3.82-4.97) 01/07/17 15:11 Hgb 12.7 g/dL (11.5-15.4) 01/07/17 15:11 Hct 39.2 % (35.3-44.9) 01/07/17 15:11 MCV 93.1 fL (83.0-100.0) 01/07/17 15:11 MCH 30.2 pg (28.0-33.3) 01/07/17 15:11 MCHC 32.4 g/dL (31.6-35.5) 01/07/17 15:11 RDW 14.4 % (11.5-14.5) 01/07/17 15:11 Plt Count 191 K/mcL (140-400) 01/07/17 15:11 MPV 11.9 fL (9.4-12.4) 01/07/17 15:11 Immature Gran % 0.3 % (0-4) 01/07/17 15:11 Seg Neutrophils % 52.5 % 01/07/17 15:11 Lymphocytes % 31.0 % 01/07/17 15:11 Monocytes % 11.1 % 01/07/17 15:11 Eosinophils % 4.3 % 01/07/17 15:11 Basophils % 0.8 % 01/07/17 15:11 Neutrophils # 1.9 K/mcL (1.6-8.9) 01/07/17 15:11 Lymphocytes # 1.1 K/mcL (0.6-4.6) 01/07/17 15:11 Monocytes # 0.4 K/mcL (0.0-1.3) 01/07/17 15:11 Eosinophils # 0.2 K/mcL (0.0-0.6) 01/07/17 15:11 Basophils # 0.0 K/mcL (0.0-0.2) 01/07/17 15:11 PT 24.5 Seconds (9.4-12.1) H 01/07/17 15:11 INR 2.2 01/07/17 15:11 APTT 43.7 Seconds (26.0-36.0) H 01/07/17 15:11 Sodium 141 mEq/L (136-145) 01/07/17 15:11 Potassium 4.0 mEq/L (3.5-4.5) 01/07/17 15:11 Chloride 108 mEq/L (98-109) 01/07/17 15:11 Carbon Dioxide 25 mEq/L (19-29) 01/07/17 15:11 BUN 7 mg/dL (7-20) 01/07/17 15:11 Creatinine 0.89 mg/dL (0.57-1.11) 01/07/17 15:11 Est GFR ( Amer) > 60 (> 60) 01/07/17 15:11 Est GFR (Non-Af Amer) > 60 (> 60) 01/07/17 15:11 BUN/Creatinine Ratio 8 (6-26) 01/07/17 15:11 Glucose 89 mg/dL (70-99) 01/07/17 15:11 Calculated Osmolality 289 (280-300) 01/07/17 15:11 Calcium 9.1 mg/dL (8.6-10.8) 01/07/17 15:11 Total Bilirubin 0.5 mg/dL (0.2-1.2) 01/07/17 15:11 Direct Bilirubin 0.2 mg/dL (0.0-0.5) 01/07/17 15:11 Indirect Bilirubin 0.3 mg/dL (0.0-1.2) 01/07/17 15:11 AST 16 Units/L (5-34) 01/07/17 15:11 ALT 10 Units/L (0-55) 01/07/17 15:11 Alkaline Phosphatase 70 Units/L (38-126) 01/07/17 15:11 Troponin I 0.01 ng/mL (0-0.03) 01/07/17 15:11 C-Reactive Protein 2 mg/L (Less than 5) 01/07/17 15:11 Serum Total Protein 7.0 g/dL (6.0-8.3) 01/07/17 15:11 Albumin 4.0 g/dL (3.5-5.0) 01/07/17 15:11 Globulin 3.0 g/dL (2.4-3.5) 01/07/17 15:11 Albumin/Globulin Ratio 1.3 (1.1-2.2) 01/07/17 15:11 Stool Occult Blood Positive (Negative) A 01/07/17 17:33 Blood Type O NEGATIVE 01/07/17 15:11 Antibody Screen NEGATIVE 01/07/17 15:11 Impressions Chest X-Ray 01/07/17 15:25 IMPRESSION: No acute process. D/ / Chandana Pelletier MD / Chandana Pelletier MD Interpreting Provider: Chandana Pelletier MD
[2017-01-08] MEDS: Ringers Solution, Lactated 1,000 ML IVC SCH ×2 (00:39→13:49)
[2017-01-08 00:47] LABS: VBG HCO3 28.5 mEq/L (21-27); VBG PH 7.42 pH Units (7.32-7.42)
[2017-01-08 00:49] LABS: INR 2.3; Prothrombin Time 25.3 Seconds (9.4-12.1)
[2017-01-08 00:58] LABS: Chol/HDL Ratio 4.6 (0-4.9); Phosphorous 1.9 mg/dL (2.3-4.7)
[2017-01-08 01:37] LABS: Hemoglobin A1C 5.1 %
[2017-01-08 02:21] LABS: Thyroid Stimulating Hormone 2.088 mcIU/mL (0.350-4.840)
[2017-01-08] MEDS ORDERED: WATER IVPB ONE (08:43)
[2017-01-08] MEDS ORDERED: D5 IVPB ONE (08:43)
[2017-01-08] MEDS ORDERED: SODIUM PHOSPHATE IVPB ONE (08:43)
[2017-01-08] MEDS ORDERED: Diltiazem SR (12hr) 60 MG CAPSULE PO SCH (09:00)
[2017-01-08] MEDS ORDERED: Metoprolol 100 MG TABLET PO SCH (09:00)
[2017-01-08] MEDS ORDERED: *HR* LORazepam 0.5 MG TABLET PO SCH ×2 (09:00→21:00)
[2017-01-08 09:10] LABS: Hematocrit 36.2 % (35.3-44.9); Hemoglobin 11.8 g/dL (11.5-15.4); Mean Corpuscular HGB Conc 32.6 g/dL (31.6-35.5); Mean Corpuscular Hemoglobin 29.3 pg (28.0-33.3); Mean Corpuscular Volume 89.8 fL (83.0-100.0); Mean Platelet Volume 11.5 fL (9.4-12.4); Platelet Count 151 K/mcL (140-400); Red Blood Count 4.03 M/mcL (3.82-4.97); Red Cell Distribution Width 13.9 % (11.5-14.5)
[2017-01-08] MEDS ORDERED: Sodium Phosphate 30 MMOL in D5% in Water 100 ML IVPB ONE (09:10)
[2017-01-08 09:28] LABS: Alanine Aminotransferase 7 Units/L (0-55); Albumin 3.5 g/dL (3.5-5.0); Albumin/Globulin Ratio 1.3 (1.1-2.2); Alkaline Phosphatase 63 Units/L (38-126); Aspartate Amino Transferase 17 Units/L (5-34); BUN/Creatinine Ratio 9 (6-26); Bilirubin,Total 0.6 mg/dL (0.2-1.2); Blood Urea Nitrogen 7 mg/dL (7-20); Calcium 8.4 mg/dL (8.6-10.8); Carbon Dioxide 23 mEq/L (19-29); Chloride 112 mEq/L (98-109); Globulin 2.6 g/dL (2.4-3.5); Glucose 87 mg/dL (70-99); Osmolality,Calculated 293 (280-300); Potassium 4.2 mEq/L (3.5-4.5); Sodium 143 mEq/L (136-145); Total Protein 6.1 g/dL (6.0-8.3); eGFR For African Americans > 60 (> 60); eGFR For Non-African Americans > 60 (> 60)
[2017-01-08 10:14] LABS: Bilirubin,Urine Negative (Negative); Blood,Urine Negative (Negative); Clarity,Urine Clear (Clear); Color,Urine Yellow (Yellow); Glucose,Urine (UA) Normal (Normal); Ketones,Urine Negative (Negative); Leukocyte Esterase,Urine Negative (Negative); Nitrite,Urine Negative (Negative); PH,Urine 7.5 pH Units (5.0-8.0); Protein,Urine Negative (Neg-Trace); Specific Gravity,Urine 1.007 (1.010-1.025); Urobilinogen,Urine Normal (Normal)
--- NOTE | 2017-01-08 10:38 | Gastroenterology Consult Note ---
<GonzaloShai Lakshmi - Last Filed: 01/08/17 11:34> Date of Encounter: 01/08/17 Time of Encounter: 10:10 - Assessment and plan (1) BRBPR (bright red blood per rectum) Status: Acute Assessment and plan: Pt with 2-3 episodes of BRBPR at home, no further episodes since admission. Unable to complete colonoscopy over the weekend. If pt still admitted and INR < 1.5, we can complete colonoscopy on Wednesday. (Clear liquid diet, no red or purple on Wednesday. NPO at midnight Wednesday night. Nulytely and Dulcolax Wednesday evening). If pt is discharged, pt can follow up with us as outpatient to have colonoscopy scheduled. (2) Elevated INR Status: Acute Assessment and plan: Pt on Coumadin for Afib. INR 2.3 today. Will need INR <1.5 for colonoscopy. (3) History of diverticulitis Status: Acute Assessment and plan: Recommend daily fiber supplement. (4) History of atrial fibrillation Status: Acute Assessment and plan: On Coumadin, will need to be held prior to colonoscopy. - Time Spent With Patient Total time spent is greater than 50% in coordination of care (as documented) at patient's floor/unit and/or counseling patient: GI History of Present Illness - Data of Consult Patient: known to practice within the last 3 years Consult date: 01/08/17 Requesting Physician: Fabien Kirkpatrick MD - Consult Narrative Reason for consult: Hematochezia History of present illness: Ms. Gee is a 76 year old female with PMHx of Afib (on Coumadin), MGUS, CHF, CAD , GERD, diverticulitis, constipation, HLD< HTN, non-hodgkins lymphoma, and AK who presented to the ED with BRBPR. She does take Coumadin for her Afib. She denies fever, chills, chest pain, abdominal pain, nausea, vomiting, hematemesis , melena, of diarrhea. Last colonoscopy completed at [facility], per pt report, it showed internal and external hemorrhoids and diverticulosis. Pt denies any further episodes of BRBPR since admission. Procedures: Colonoscopy 04/24/2016 Dr. Lemon @ [facility]: internal and external hemorrhoids, diverticulosis per pt report. EGD 06/30/2016 @ [facility]: Normal per pt report NSAIDs: None Anticoagulation: Coumadin Past Med Surg Social Fam HX - Past Medical History Medical history: arthritis, atrial fibrillation (chr anticoagulation w/ warfarin.), cancer (MGUS. Skin Ca unspecified. ), CHF, coronary artery disease, GERD, GI bleed (Hemorrhoids. Diverticulosis coli. H/O acute diverticulitis. Chr constipation.), hyperlipidemia, hypertension, malignancy (Nodular non-Hodgkins lymphoma, H/O.), myocardial infarction, osteoporosis (Chronic pain syndrome. Lumbar spinal stenosis/LBP/radiculopathy. B12 and Folate def. Vit D def.), SVT, other (Iron deficiency anemia. DDD/DJD of spine. ) Psychiatric history: anxiety, depression, other - Past Surgical History Surgical History: appendectomy, cancer surgery, cholecystectomy, hysterectomy, NELLA/BSO, other - Social History Smoking Status: Never smoker Smokeless Tobacco Status: No Alcohol use: none Drug use: none - Family History Mother Adopted: No Family Member Ethnicity: Non- Living Status: Hx Family Cardiac Disorders: Yes (stroke) Hx Family Respiratory Disorders: No Hx Family Cancer: No Hx Family GI Disorders: No Hx Family Endocrine Disorder: No Hx Family Neuromuscular Disorders: No Hx Family Neurologic Disorders: Yes Hx Family HEENT Disorders: No Hx Family Autoimmune Disorders: No Father Living Status: Hx Family Cancer: Yes (COLON) Hx Family Neurologic Disorders: Yes (Dementia) Sister Living Status: Hx Family Cardiac Disorders: Yes (AK in 80s) Hx Family Cancer: Yes (Colon) Brother Living Status: Hx Family Cardiac Disorders: Yes (AK in 80s) Hx Family Cancer: Yes (Pancreatic) - Gastrointestinal Gastrointestinal: Present: as per HPI - Constitutional Constitutional: as per HPI - EENT Eyes: as per HPI Ears: Present: as per HPI Nose, mouth and throat: Present: as per HPI - Cardiovascular Cardiovascular ROS: Present: as per HPI - Respiratory Respiratory IM: Present: as per HPI - Genitourinary Genitourinary: Absent: change in color, Urinary frequency - Neurological ROS Neurological GI: Present: as per HPI - Hematologic/Lymphatic Hematologic/Lymphatic pediatric: Present: as per HPI - Musculoskeletal Musculoskeletal ROS GI: Present: as per HPI - Integumentary Integumentary GI: Present: as per HPI - Psychiatric ROS Psychiatric GI: Present: as per HPI - Endocrine Endocrine IM: Present: as per HPI - Constitutional Vitals: Temp Pulse Resp BP Pulse Ox 97.9 F 66 18 143/75 98 01/08/17 07:17 01/08/17 07:17 01/08/17 07:17 01/08/17 07:17 01/08/17 07:17 General appearance: Present: cooperative, A&O X 3, no acute distress, answers questions appropriately - Head Head exam: Present: atraumatic, normocephalic - Eye Eye exam: Present: normal appearance, sclera anicteric - ENT ENT exam: Present: mucous membranes dry - Neck Neck exam general surgery: Present: normal inspection, trachea midline - Respiratory Respiratory exam: Present: CTAB. Absent: rales, rhonchi - Cardiovascular Cardiovascular exam: Present: RRR, +S1, +S2 - GI/Abdominal GI/Abdominal exam: Present: normal bowel sounds, soft, no peritoneal signs. Absent: distended, firm, guarding - Rectal Rectal exam: Present: deferred - Extremities Exam Extremities exam: Present: warm - Neurological Exam Neurological exam: Present: no focal deficits - Psychiatric Psychiatric exam: Present: normal affect, normal mood - Skin Skin exam: Present: dry, intact, normal color, warm Results - Labs CBC & Chem 7: 01/08/17 09:02 01/08/17 09:02 Labs: Last Result Calcium 8.4 mg/dL (8.6-10.8) L 01/08/17 09:02 Iron 49 mcg/dL (50-170) L 01/08/17 00:29 % Saturation 18 % (15-50) 01/08/17 00:29 Transferrin 193 mg/dL (180-382) 01/08/17 00:29 Troponin I 0.01 ng/mL (0-0.03) 01/07/17 15:11 C-Reactive Protein 2 mg/L (Less than 5) 01/08/17 00:29 Triglycerides 107 mg/dL (< 150) 01/08/17 00:29 Stool Occult Blood Positive (Negative) A 01/07/17 17:33 Entire Visit Hgb 11.8 g/dL (11.5-15.4) 01/08/17 09:02 Hct 36.2 % (35.3-44.9) 01/08/17 09:02 PT 25.3 Seconds (9.4-12.1) H 01/08/17 00:29 Total Bilirubin 0.6 mg/dL (0.2-1.2) 01/08/17 09:02 AST 17 Units/L (5-34) 01/08/17 09:02 ALT 7 Units/L (0-55) 01/08/17 09:02 - ABG ABG results: PT/INR, D-dimer PT 25.3 Seconds (9.4-12.1) H 01/08/17 00:29 Consult Discharge Plan - Plan Referrals: Noemí Blount MD [Primary Care Provider] - Joie Jarrett [employer]ILD[employer]CTION INSPECTOR [Advanced Practice Nurse] - 01/19/17 4:00 pm Prescriptions: Docusate [Colace] 100 mg PO BID PRN #60 capsule PRN Reason: Constipation <Davonte Guillory - Last Filed: 01/11/17 14:07> Date of Encounter: 01/08/17 Time of Encounter: 11:00 - Time Spent With Patient Total time spent is greater than 50% in coordination of care (as documented) at patient's floor/unit and/or counseling patient: GI History of Present Illness - Data of Consult Requesting Physician: Fabien Kirkpatrick MD - Consult Narrative History of present illness: Ms. Gee is a 76 year old female - Constitutional Vitals: Temp Pulse Resp BP Pulse Ox 97.9 F 63 18 148/82 96 01/08/17 14:34 01/08/17 14:34 01/08/17 14:34 01/08/17 14:34 01/08/17 14:34 Results - Labs CBC & Chem 7: 01/08/17 15:00 01/08/17 09:02 Labs: Last Result Calcium 8.4 mg/dL (8.6-10.8) L 01/08/17 09:02 Iron 49 mcg/dL (50-170) L 01/08/17 00:29 % Saturation 18 % (15-50) 01/08/17 00:29 Transferrin 193 mg/dL (180-382) 01/08/17 00:29 Troponin I 0.01 ng/mL (0-0.03) 01/07/17 15:11 C-Reactive Protein 2 mg/L (Less than 5) 01/08/17 00:29 Triglycerides 107 mg/dL (< 150) 01/08/17 00:29 Stool Occult Blood Positive (Negative) A 01/07/17 17:33 Entire Visit Hgb 12.9 g/dL (11.5-15.4) 01/08/17 15:00 Hct 38.7 % (35.3-44.9) 01/08/17 15:00 PT 25.3 Seconds (9.4-12.1) H 01/08/17 00:29 Total Bilirubin 0.6 mg/dL (0.2-1.2) 01/08/17 09:02 AST 17 Units/L (5-34) 01/08/17 09:02 ALT 7 Units/L (0-55) 01/08/17 09:02 - ABG ABG results: PT/INR, D-dimer PT 25.3 Seconds (9.4-12.1) H 01/08/17 00:29
--- NOTE | 2017-01-08 13:44 | Internal Med Progress Note ---
<Eloisa Lovett - Last Filed: 01/08/17 16:55> Date of Encounter: 01/08/17 Time of Encounter: 09:00 - Assessment and plan (1) Lower gastrointestinal hemorrhage Status: Acute Assessment and plan: Patient had 2 episodes of GI bleed yesterday No further episodes reported Hb 11.8 this morning, down from 12.7 upon presentation to hospital Patient has been seen by GI, who plans colonoscopy on Wednesday, January 11 Continue to monitor Hb (2) Atrial fibrillation Status: Acute Assessment and plan: Continue cardizem Coumadin will be held until after colonoscopy Qualifiers: Atrial fibrillation type: chronic Qualified Code(s): I48.2 - Chronic atrial fibrillation (3) Leukopenia Status: Acute Assessment and plan: Chronic Patient follows with Heme/Onc Continue to monitor Qualifiers: Neutropenia type: unspecified Qualified Code(s): D70.9 - Neutropenia, unspecified (5) Hypophosphatemia Status: Acute Assessment and plan: Repleted Will recheck in am (6) Hypocalcemia Status: Acute Assessment and plan: Repleted (7) DVT prophylaxis Status: Acute - Subjective Interval history: Patient presented to [facility] yesterday with complaint of bright red blood per rectum. Patient states that she went without a bowel movement for 2 days. She states that she strained very hard and drank a large amount of prune juice to try to defecate. Yesterday morning, she appreciated blood in the toilet with her bowel movement. She states that the stool was brown and formed. Patient states that she had 2 episodes of bloody stool. Patient denies any associated fever, chest pain, dyspnea, abdominal pain, nausea, or vomiting. Patient takes coumadin for afib. INR was 2.2 upon presentation to hospital. Patient has had 3 prior episodes of blood per rectum. She admits history of diverticulosis. Last colonoscopy was Apr 24, 2016 and last EGD was . Both were performed by Dr. Lemon in [place]. - Constitutional Vitals: Temp Pulse Resp BP Pulse Ox 97.9 F 57 18 132/65 97 01/08/17 10:53 01/08/17 10:53 01/08/17 10:53 01/08/17 10:53 01/08/17 10:53 General appearance: Present: A&O X 3, answers questions appropriately - Head Head exam: Present: atraumatic, normocephalic - Eye Eye exam: Present: PERRL, conjuntiva pink, sclera anicteric - Neck Neck exam general surgery: Present: supple, trachea midline. Absent: lymphadenopathy - Respiratory Respiratory exam: Present: CTAB. Absent: accessory muscle use, rales, rhonchi, wheezes - Cardiovascular Cardiovascular exam: Present: RRR, +S1, +S2. Absent: diastolic murmur, gallop, rubs, systolic murmur - GI/Abdominal GI/Abdominal exam: Present: normal bowel sounds, soft, no peritoneal signs. Absent: distended, tenderness - Extremities Exam Extremities exam: Present: normal capillary refill, warm, radial pulses palpable and symetrical. Absent: calf tenderness, cyanotic, pedal edema - Neurological Exam Neurological exam: Present: CN II-XII intact, oriented X3, no focal deficits. Absent: pronater drift, facial droop, speech deficit - Skin Skin exam: Present: dry, intact Internal Medicine: Result - Labs CBC & Chem 7: 01/08/17 15:00 01/08/17 09:02 Labs: Short CBC 01/08/17 Range/Units 09:02 WBC 3.0 L (4.3-11.1) K/mcL Hgb 11.8 (11.5-15.4) g/dL Hct 36.2 (35.3-44.9) % Plt Count 151 (140-400) K/mcL BMP 01/08/17 09:02 Sodium 143 Potassium 4.2 Chloride 112 H Carbon Dioxide 23 BUN 7 Creatinine 0.78 Glucose 87 Calcium 8.4 L Liver Function 01/08/17 Range/Units 09:02 Total Bilirubin 0.6 (0.2-1.2) mg/dL AST 17 (5-34) Units/L ALT 7 (0-55) Units/L Alkaline Phosphatase 63 (38-126) Units/L Albumin 3.5 (3.5-5.0) g/dL Urine 01/08/17 Range/Units 09:45 Urine Color Yellow (Yellow) Urine Clarity Clear (Clear) Urine pH 7.5 (5.0-8.0) pH Units Ur Specific [place] 1.007 L (1.010-1.025) Urine Protein Negative (Neg-Trace) mg/dL Urine Glucose (UA) Normal (Normal) mg/dL - ABG Interpretation ABG results: PT/INR, D-dimer PT 25.3 Seconds (9.4-12.1) H 01/08/17 00:29 - Impressions Chest X-Ray 01/07/17 15:25 IMPRESSION: No acute process. D/ / Chandana Pelletier MD / Chandana Pelletier MD Interpreting Provider: Chandana Pelletier MD Consult Discharge Plan - Plan Referrals: Noemí Blount MD [Partnered Physician] - Joie Jarrett CNP [Advanced Practice Nurse] - 01/19/17 4:00 pm Prescriptions: Docusate [Colace] 100 mg PO BID PRN #60 capsule PRN Reason: Constipation <Fabien Kirkpatrick - Last Filed: 01/08/17 20:02> Date of Encounter: 01/08/17 - Constitutional Vitals: Temp Pulse Resp BP Pulse Ox 97.9 F 63 18 148/82 96 01/08/17 14:34 01/08/17 14:34 01/08/17 14:34 01/08/17 14:34 01/08/17 14:34 Internal Medicine: Result - Labs CBC & Chem 7: 01/08/17 15:00 01/08/17 09:02 Labs: Short CBC 01/08/17 01/08/17 Range/Units 09:02 15:00 WBC 3.0 L (4.3-11.1) K/mcL Hgb 11.8 12.9 (11.5-15.4) g/dL Hct 36.2 38.7 (35.3-44.9) % Plt Count 151 (140-400) K/mcL BMP 01/08/17 09:02 Sodium 143 Potassium 4.2 Chloride 112 H Carbon Dioxide 23 BUN 7 Creatinine 0.78 Glucose 87 Calcium 8.4 L Liver Function 01/08/17 Range/Units 09:02 Total Bilirubin 0.6 (0.2-1.2) mg/dL AST 17 (5-34) Units/L ALT 7 (0-55) Units/L Alkaline Phosphatase 63 (38-126) Units/L Albumin 3.5 (3.5-5.0) g/dL Urine 01/08/17 Range/Units 09:45 Urine Color Yellow (Yellow) Urine Clarity Clear (Clear) Urine pH 7.5 (5.0-8.0) pH Units Ur Specific [place] 1.007 L (1.010-1.025) Urine Protein Negative (Neg-Trace) mg/dL Urine Glucose (UA) Normal (Normal) mg/dL - ABG Interpretation ABG results: PT/INR, D-dimer PT 25.3 Seconds (9.4-12.1) H 01/08/17 00:29 - Attending Attestation I discussed this patient and my medical decision-making was reviewed with the Resident Physician, Dr. Eloisa Lovett. I agree with the documented findings, disposition and treatment plan as described except to the extent set forth below. The patient was placed in observation for rectal bleed. Repeat hemoglobin stayed around her baseline of 12. Rectal bleeding had stopped and she will be discharged home with close follow-up with her primary care physician. I recommend holding her Coumadin due to high risk for cataclysmic bleeding from colonic lesion and outpatient CBC and PT/INR on Wednesday to be discussed with her PCP. Follow-up closely with GI for a colonoscopy to identify the cause of her bleed which is likely diverticular.
[2017-01-08 14:36] VITALS: BP 148/82
[2017-01-08 15:06] LABS: Hematocrit 38.7 % (35.3-44.9); Hemoglobin 12.9 g/dL (11.5-15.4)
--- NOTE | 2017-01-08 16:58 | Discharge Summary ---
<Eloisa Lovett - Last Filed: 01/08/17 16:56> Date of Encounter: 01/08/17 Time of Encounter: 16:00 - Discharge Diagnosis (1) Lower gastrointestinal hemorrhage Priority: Primary Status: Acute (2) Atrial fibrillation Priority: Secondary Status: Chronic Qualifiers: Atrial fibrillation type: chronic Qualified Code(s): I48.2 - Chronic atrial fibrillation (3) Leukopenia Priority: Secondary Status: Chronic Qualifiers: Neutropenia type: unspecified Qualified Code(s): D70.9 - Neutropenia, unspecified (4) Iron deficiency anemia Priority: Secondary Status: Acute Qualifiers: Iron deficiency anemia type: unspecified iron deficiency Qualified Code(s) : D50.9 - Iron deficiency anemia, unspecified (5) Hypophosphatemia Priority: Secondary Status: Acute (6) Hypocalcemia Priority: Secondary Status: Acute (7) DVT prophylaxis Priority: Secondary Status: Acute - Discharge Medications Prescriptions: Docusate [Colace] 100 mg PO BID PRN #60 capsule PRN Reason: Constipation Home Medications: Metoprolol Tartrate [Lopressor] 100 mg PO BID 04/18/15 [History] Ranitidine HCl [Zantac] 150 mg PO BID 04/18/15 [History] Losartan Potassium [Cozaar] 25 mg PO DAILY 02/14/16 [History] Folic Acid 1 mg PO DAILY 10/10/16 [History] Lovastatin [Mevacor] 20 mg PO HS 10/10/16 [History] Albuterol Neb [Proventil Neb] 2.5 mg IH TID PRN 01/07/17 [History] Cyanocobalamin (Vitamin B-12) [Vitamin B12] 1,000 mcg PO DAILY 01/07/17 [History ] Diltiazem SR (12hr) [Cardizem SR] 60 mg PO DAILY 01/07/17 [History] Loratadine [Claritin] 10 mg PO DAILY PRN 01/07/17 [History] Pantoprazole Sodium [Protonix] 40 mg PO DAILY PRN 01/07/17 [History] Tramadol HCl [Ultram] 50 mg PO Q6H PRN 01/07/17 [History] Docusate [Colace] 100 mg PO BID PRN #60 capsule 01/08/17 [Rx] LORazepam [Ativan] 0.5 mg PO HS #0 01/08/17 [Rx] Allergies/Adverse Reactions: Allergies Penicillins Allergy (Verified 10/10/16 09:11) Rash BRANDON Inhibitors Adverse Reaction (Verified 10/10/16 09:11) Cough - Notes to Outpatient Provider Patient's current Hb is stable. She will need to have CBC and INR/PT to be followed by PCP at next visit. We are holding her Coumadin until after colonoscopy is complete to evaluate for GI Bleed. Patient was found to have iron-deficiency anemia during hospitalization. Recommend iron injections. Date of admission: 01/07/17 19:01 Primary care physician: PCP NO Consults: 01/08/17 08:00 Consult to Physician [CONS] Routine Consulting Provider: Davonte Guillory Reason for Consult: Hematochezia/bright red blood per rectum noted bowel movement in a patient on chronic Coumadin therapy for atrial fibrillation. Please evaluate and advise Time Notified: 23:58 Call Completed: No Discharging clinician: Fabien Kirkpatrick Anticipated date of discharge: 01/08/17 - Patient Status Disposition: Home, Self-Care Condition: Good Functional capacity at discharge: independent ambulation Overall status at discharge: patient is progressing back to baseline - Discharge Instructions Follow Up With: Noemí Blount MD [Partnered Physician] - Joie Jarrett CNP [Advanced Practice Nurse] - 01/19/17 4:00 pm - Diet and Activity Activity: increase activity as tolerated Diet: low fat, low cholesterol Hospital course: Ms. Gee is a 76 year old female who presented to hospital with one day history of bright red blood per rectum. Patient states that she went without a bowel movement for 2 days. She states that she strained very hard and drank a large amount of prune juice to try to defecate. Yesterday morning, she appreciated blood in the toilet with two bowel movements. She states that the stool was brown and formed. Patient has history of three prior episodes of such bleeding. Last colonoscopy was in April 2016 and last EGD was in June. Patient states she has history of diverticulitis, internal hemorrhoids, and external hemorrhoids. Both were performed by Dr. Odell in [place], [place]. Patient denied any associated fever, chest pain, dyspnea, abdominal pain, nausea , or vomiting. Since admission, patient's Hb has remained stable. Vitals have remained stable. Patient was seen by Dr. Guillory, who recommended colonoscopy. Colonoscopy will be performed as outpatient. Patient had bowel movement today without bleeding. Patient takes coumadin for afib. INR was 2.2 upon presentation to hospital. We will hold coumadin until after colonoscopy is performed. Patient advised to return to hospital if she has further episodes of bleeding. She was also advised to return should she have dyspnea, fatigue, or extreme weakness as she may have a GI bleed that is blocked by a hard stool. Patient also found to have iron-deficiency anemia, hypocalcemia, and hypophosphatemia during hospital stay. She will have CBC and INR/PT measured in 5 days. These labs will require follow-up by PCP in 5-7 days. - Time Spent with Patient Total time spent providing and/or coordinating discharge services: Greater than 30 minutes (40 minutes including time with patinet and coordinating care) - Constitutional Vitals: Temp Pulse Resp BP Pulse Ox 97.9 F 63 18 148/82 96 01/08/17 14:34 01/08/17 14:34 01/08/17 14:34 01/08/17 14:34 01/08/17 14:34 General appearance: Present: A&O X 3, answers questions appropriately - Head Head exam: Present: atraumatic, normocephalic - Eye Eye exam: Present: PERRL, conjuntiva pink, sclera anicteric - Neck Neck exam general surgery: Present: supple, trachea midline. Absent: lymphadenopathy - Respiratory Respiratory exam: Present: CTAB. Absent: accessory muscle use, rales, rhonchi, wheezes - Cardiovascular Cardiovascular exam: Present: irregular rhythm, +S1, +S2. Absent: diastolic murmur, gallop, rubs, systolic murmur - GI/Abdominal GI/Abdominal exam: Present: normal bowel sounds, soft, no peritoneal signs. Absent: distended, tenderness - Extremities Exam Extremities exam: Present: warm, radial pulses palpable and symetrical. Absent : cyanotic, pedal edema - Back Exam Additional comments: Kyphosis - Neurological Exam Neurological exam: Present: CN II-XII intact, oriented X3, no focal deficits. Absent: pronater drift, facial droop, speech deficit - Skin Skin exam: Present: dry, intact - Other Additional findings: Chest X-Ray 01/07/17 15:25 IMPRESSION: No acute process. D/ / Chandana Pelletier MD / Chandana Pelletier MD Interpreting Provider: Chandana Pelletier MD <Fabien Kirkpatrick - Last Filed: 01/08/17 20:07> Date of Encounter: 01/08/17 Date of admission: 01/07/17 19:01 Primary care physician: PCP NO Consults: 01/08/17 08:00 Consult to Physician [CONS] Routine Consulting Provider: Davonte Guillory Reason for Consult: Hematochezia/bright red blood per rectum noted bowel movement in a patient on chronic Coumadin therapy for atrial fibrillation. Please evaluate and advise Time Notified: 23:58 Call Completed: No Hospital course: Ms. Gee is a 76 year old female - Time Spent with Patient Total time spent providing and/or coordinating discharge services: - Constitutional Vitals: Temp Pulse Resp BP Pulse Ox 97.9 F 63 18 148/82 96 01/08/17 14:34 01/08/17 14:34 01/08/17 14:34 01/08/17 14:34 01/08/17 14:34 - Attending Attestation I discussed this patient and my medical decision-making was reviewed with the Resident Physician, Dr. Eloisa Lovett. I agree with the documented findings, disposition and treatment plan as described except to the extent set forth below. The patient was placed in observation for rectal bleed. Repeat hemoglobin stayed around her baseline of 12. Rectal bleeding had stopped and she will be discharged home with close follow-up with her primary care physician. I recommend holding her Coumadin due to high risk for cataclysmic bleeding from colonic lesion and outpatient CBC and PT/INR on Wednesday to be discussed with her PCP. Follow-up closely with GI for a colonoscopy to identify the cause of her bleed which is likely diverticular.
--- NOTE | 2017-01-08 17:45 | Electrocardiograph Report ---
[place] [id number] Test Date: 2017-01-07 Pat Name: Cheli Gee Department: 105 Room: 3A44 Gender: C 12 Catapult Operator: ALESSIO : 1940 Requested By: Johnny Cuello Order Number: [id number] Reading MD: Ijeoma Silveira Measurements Intervals [place] Rate: 60 P: 58 ME: 214 QRS: -7 QRSD: 102 T: 6 QT: 393 QTc: 393 Interpretive Statements SINUS RHYTHM WITH FIRST DEGREE AV BLOCK VOLTAGE CRITERIA FOR LVH [MEETS CRITERIA IN ONE OF: R(aVL), S(V1), R(V5), R(V5/V6) +S(V1)] Electronically Signed On 01-08-2017 17:44:12 EDT by Ijeoma Silveira
[2017-01-08] MEDS ORDERED: Warfarin perPT PO PRN (18:00)
[2017-01-08] MEDS ORDERED: *HR* Warfarin 5 MG TABLET PO SCH (18:00)
[2017-01-08] MEDS ORDERED: Pantoprazole 40 MG VIAL IVP SCH (23:55)
[2017-01-09] MEDS ORDERED: *HR* Warfarin 4 MG TABLET PO SCH (18:00)
== END 2017-01-08 17:49 | disposition home or self-care (01) ==
LOC: 3ANU 14:00 → EMEROO 14:00 → 3ANU 20:40
PROVIDERS: ADMIT Registered Nurse; ATTEND Internal Medicine

== ENCOUNTER 2017-01-27 23:14 | Observation (INO) ==
[2017-01-27 23:57] LABS: Basophils % 0.5 %; Eosinophils # 0.2 K/mcL (0.0-0.6); Hematocrit 39.6 % (35.3-44.9); Hemoglobin 12.8 g/dL (11.5-15.4); Immature Granulocytes % 0.2 % (0-4); Immature Platelets 10.4 % (1.1-6.1); Lymphocytes # 1.3 K/mcL (0.6-4.6); Lymphocytes % 29.9 %; Mean Corpuscular HGB Conc 32.3 g/dL (31.6-35.5); Mean Corpuscular Hemoglobin 29.7 pg (28.0-33.3); Mean Corpuscular Volume 91.9 fL (83.0-100.0); Mean Platelet Volume 10.9 fL (9.4-12.4); Monocytes # 0.5 K/mcL (0.0-1.3); Monocytes % 12.6 %; Neutrophils # 2.2 K/mcL (1.6-8.9); Platelet Count 202 K/mcL (140-400); Red Blood Count 4.31 M/mcL (3.82-4.97); Red Cell Distribution Width 13.8 % (11.5-14.5); Segmented Neutrophils % 51.8 %
--- NOTE | 2017-01-27 23:57 | Emergency Department Note ---
Disposition Clinical Impression: Atrial fibrillation with rapid ventricular response, Hypokalemia Chest pain Qualifiers: Chest pain type: precordial pain Qualified Code(s): R07.2 - Precordial pain Disposition: Admitted As Inpatient Condition: Fair Arrhythmia/Palpitations HPI - General Chief Complaint: ED Arrhythmia/Palpitations Stated Complaint: "Has Afib/Feels Heart is Out of Rhythm" Time Seen by Provider: 01/27/17 23:38 Source: patient, family Mode of arrival: private vehicle Limitations: no limitations Nursing Notes Reviewed: Yes Vital Signs Reviewed: Yes - History of Present Illness Pt Subjective Complaint: rapid heart beat, "heart racing", palpitations, irregular heart beat, atrial fibrillation Onset (ago): hour(s) Duration: intermittent Severity: moderate, similar to previous episodes Context: other (occurred while watching a scary movie - was startled) Arrhythmia History: atrial fibrillation Associated symptoms: Reports: chest pain ("tightness and some pressure"), diaphoresis, cough (dry - occasional) Treatments prior to arrival: other (none) - Related Data Home Medications Medication Instructions Recorded Confirmed Metoprolol Tartrate [Lopressor] 100 mg PO BID 04/18/15 01/07/17 Ranitidine HCl [Zantac] 150 mg PO BID 04/18/15 01/07/17 Losartan Potassium [Cozaar] 25 mg PO DAILY 02/14/16 01/07/17 Folic Acid 1 mg PO DAILY 10/10/16 01/07/17 Lovastatin [Mevacor] 20 mg PO HS 10/10/16 01/07/17 Albuterol Neb [Proventil Neb] 2.5 mg IH TID PRN 01/07/17 01/07/17 Cyanocobalamin (Vitamin B-12) 1,000 mcg PO DAILY 01/07/17 01/07/17 [Vitamin B12] Diltiazem SR (12hr) [Cardizem SR] 60 mg PO DAILY 01/07/17 01/07/17 Loratadine [Claritin] 10 mg PO DAILY PRN 01/07/17 01/07/17 Pantoprazole Sodium [Protonix] 40 mg PO DAILY PRN 01/07/17 01/07/17 Tramadol HCl [Ultram] 50 mg PO Q6H PRN 01/07/17 01/07/17 Previous Rx's Medication Instructions Recorded Docusate [Colace] 100 mg PO BID PRN #60 capsule 01/08/17 LORazepam [Ativan] 0.5 mg PO HS #0 01/08/17 Allergies Allergy/AdvReac Type Severity Reaction Status Date / Time Penicillins Allergy Rash Verified 01/27/17 23:26 BRANDON Inhibitors AdvReac Cough Verified 01/27/17 23:26 All systems ED: reviewed and negative except as stated. Constitutional: Denies: fever, chills, weakness Eyes: Denies: vision change ENT ED: Denies: throat pain, congestion, dysphagia Cardiovascular: Reports: as per HPI, chest pain, palpitations. Denies: dyspnea on exertion, orthopnea, edema, syncope Respiratory: Reports: as per HPI, cough. Denies: dyspnea, wheezes, stridor Gastrointestinal: Denies: abdominal pain, nausea, vomiting Genitourinary: Denies: dysuria Musculoskeletal: Denies: back pain, neck pain, joint swelling Integumentary: Denies: rash Neurological: Denies: headache, weakness, numbness, paresthesias, confusion, abnormal gait, vertigo Psychiatric: Denies: anxiety Endocrine: Denies: fatigue Hematological/Lymphatic: Denies: easy bleeding, easy bruising Past Medical History - Past Medical History Attestation: Yes The following information was validated with the patient. Source: patient Medical history: Reports: arthritis, atrial fibrillation, cancer, CHF, coronary artery disease, GERD, GI bleed, hyperlipidemia, hypertension, malignancy, myocardial infarction, osteoporosis, renal disease, SVT, venous stasis, valvular heart disease, other Surgical history: Reports: appendectomy, cancer surgery (Skin cancer removed from nose. Excision of enlarged left inguinal lymph node. Benign pelvic cyst adenoma removal.), cataract, cholecystectomy, hysterectomy, NELLA/BSO, other ( Colonoscopy. 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 Absent: scleral icterus, conjunctival injection, periorbital swelling - ENT ENT exam: normal oropharynx, mucous membranes moist - Neck Neck exam: Present: normal inspection, full ROM, trachea midline. Absent: meningismus - Chest Chest inspection: Present: normal inspection - Respiratory Respiratory exam: Present: normal lung sounds bilaterally. Absent: respiratory distress, wheezes, stridor, accessory muscle use, prolonged expiratory phase - Cardiovascular Cardiovascular exam: Present: tachycardia, irregular rhythm, systolic murmur - Abdominal Exam Abdominal exam: Present: soft, Non-Tender. Absent: distention, guarding, rebound, mass, pulsatile mass - Extremities Exam Extremities exam: Present: normal inspection, full ROM, normal capillary refill. Absent: tenderness, pedal edema, calf tenderness - Expanded Lower Extremity Exam Lower leg exam: Present: normal inspection. Absent: tenderness, swelling, ecchymosis, erythema, Homans' sign Ankle exam: Present: normal inspection, full ROM. Absent: tenderness, swelling Foot/toe exam: Present: normal inspection, full ROM. Absent: tenderness, swelling Neurovascular/Tendon exam: Present: normal capillary refill. Absent: pulse deficit, motor deficit, sensory deficit, extremity cold to touch, pallor Gait: not tested/not observed - Back Exam Back exam: Present: normal inspection - Neurological Exam Neurological exam: Present: alert, oriented X3, CN II-XII intact - Psychiatric Psychiatric exam: Present: normal affect, normal mood - Skin Skin exam: Present: warm, dry, intact, normal color Course Course Narrative: Patient presents from home for evaluation of "A-fib and not feeling right." She has hx of similar. She is normally controlled with diltiazem and metoprolol. She has chest tightness / pressure as well. She denies weakness, paraesthesias, vertigo, ataxia, N/V, vision changes. EKG shows A-fib - rate of 91. On monitor though, patient's rate is in the 120's - 130's. SHe has been off Coumadin since October when it was stopped due to a lower GI bleed. She denies continued bleeding and is scheduled for a scope later this month. She denies recent changes in her medications. Labs are essentially normal except low K+ at 3.3. Replacement was ordered. CXR is normal. Rate controlled with cardizem bolus. Rate dropped into 60's so drip was stopped. Case was discussed with Dr. Mcleod. He has seen the patient, reviewed the ECG, and agrees with the assessment and plan. - Reevaluation(s) Reevaluation #1: Cardizem bolus was given. Patient's rate is now in the 70's - 80's. Patient has no complaints at this time. Time: 00:20 - Consultations Consultation #1: Hospitalist was paged. Case was discussed. He will admit the patient. Time: 02:05 Vital Signs Temperature 97.9 F 01/27/17 23:23 Pulse Rate 106 01/27/17 23:23 Respiratory Rate 16 01/27/17 23:23 Blood Pressure 157/67 01/27/17 23:23 O2 Sat by Pulse Oximetry 95 01/27/17 23:23 Temperature 97.9 F 01/27/17 23:23 Pulse Rate 124 01/28/17 00:05 Respiratory Rate 16 01/28/17 02:36 Blood Pressure 141/59 01/28/17 02:36 O2 Sat by Pulse Oximetry 97 01/28/17 00:05 Oxygen Delivery Oxygen Delivery Room Air Arrhythmia/Palpitations - Medical Records Medical records reviewed: Yes I reviewed the patient's medical records. - Lab Data Lab results reviewed: Yes I reviewed the patient's lab results. Lab results narrative: Laboratory Last Values WBC 4.2 K/mcL (4.3-11.1) L 01/27/17 23:49 RBC 4.31 M/mcL (3.82-4.97) 01/27/17 23:49 Hgb 12.8 g/dL (11.5-15.4) 01/27/17 23:49 Hct 39.6 % (35.3-44.9) 01/27/17 23:49 MCV 91.9 fL (83.0-100.0) 01/27/17 23:49 MCH 29.7 pg (28.0-33.3) 01/27/17 23:49 MCHC 32.3 g/dL (31.6-35.5) 01/27/17 23:49 RDW 13.8 % (11.5-14.5) 01/27/17 23:49 Plt Count 202 K/mcL (140-400) 01/27/17 23:49 MPV 10.9 fL (9.4-12.4) 01/27/17 23:49 Immature Gran % 0.2 % (0-4) 01/27/17 23:49 Seg Neutrophils % 51.8 % 01/27/17 23:49 Lymphocytes % 29.9 % 01/27/17 23:49 Monocytes % 12.6 % 01/27/17 23:49 Eosinophils % 5.0 % 01/27/17 23:49 Basophils % 0.5 % 01/27/17 23:49 Neutrophils # 2.2 K/mcL (1.6-8.9) 01/27/17 23:49 Lymphocytes # 1.3 K/mcL (0.6-4.6) 01/27/17 23:49 Monocytes # 0.5 K/mcL (0.0-1.3) 01/27/17 23:49 Eosinophils # 0.2 K/mcL (0.0-0.6) 01/27/17 23:49 Basophils # 0.0 K/mcL (0.0-0.2) 01/27/17 23:49 Immature Plt Fraction 10.4 % (1.1-6.1) H 01/27/17 23:49 PT 11.3 Seconds (9.4-12.1) 01/27/17 23:49 INR 1.0 01/27/17 23:49 APTT 34.0 Seconds (26.0-36.0) 01/27/17 23:49 Sodium 143 mEq/L (136-145) 01/27/17 23:49 Potassium 3.3 mEq/L (3.5-4.5) L 01/27/17 23:49 Chloride 108 mEq/L (98-109) 01/27/17 23:49 Carbon Dioxide 24 mEq/L (19-29) 01/27/17 23:49 BUN 9 mg/dL (7-20) 01/27/17 23:49 Creatinine 0.97 mg/dL (0.57-1.11) 01/27/17 23:49 Est GFR ( Amer) > 60 (> 60) 01/27/17 23:49 Est GFR (Non-Af Amer) 56 (> 60) L 01/27/17 23:49 BUN/Creatinine Ratio 9 (6-26) 01/27/17 23:49 Glucose 118 mg/dL (70-99) H 01/27/17 23:49 Calculated Osmolality 296 (280-300) 01/27/17 23:49 Calcium 9.3 mg/dL (8.6-10.8) 01/27/17 23:49 Troponin I 0.01 ng/mL (0-0.03) 01/27/17 23:49 Urine Color Yellow (Yellow) 01/28/17 00:00 Urine Clarity Clear (Clear) 01/28/17 00:00 Urine pH 7.0 pH Units (5.0-8.0) 01/28/17 00:00 Ur Specific [place] 1.007 (1.010-1.025) L 01/28/17 00:00 Urine Protein Negative mg/dL (Neg-Trace) 01/28/17 00:00 Urine Glucose (UA) Normal mg/dL (Normal) 01/28/17 00:00 Urine Ketones Negative mg/dL (Negative) 01/28/17 00:00 Urine Blood Negative (Negative) 01/28/17 00:00 Urine Nitrite Negative (Negative) 01/28/17 00:00 Urine Bilirubin Negative (Negative) 01/28/17 00:00 Urine Urobilinogen Normal mg/dL (Normal) 01/28/17 00:00 Ur Leukocyte Esterase Negative (Negative) 01/28/17 00:00 Ur Culture Indicated? NO (NO) 01/28/17 00:00 Result diagrams: 01/27/17 23:49 01/27/17 23:49 Lab Results 01/27/17 01/27/17 01/27/17 Range/Units 23:49 23:49 23:49 WBC 4.2 L (4.3-11.1) K/mcL RBC 4.31 (3.82-4.97) M/mcL Hgb 12.8 (11.5-15.4) g/dL Hct 39.6 (35.3-44.9) % MCV 91.9 (83.0-100.0) fL MCH 29.7 (28.0-33.3) pg MCHC 32.3 (31.6-35.5) g/dL RDW 13.8 (11.5-14.5) % Plt Count 202 (140-400) K/mcL MPV 10.9 (9.4-12.4) fL Immature Gran % 0.2 (0-4) % Seg Neutrophils % 51.8 % Lymphocytes % 29.9 % Monocytes % 12.6 % Eosinophils % 5.0 % Basophils % 0.5 % Neutrophils # 2.2 (1.6-8.9) K/mcL Lymphocytes # 1.3 (0.6-4.6) K/mcL Monocytes # 0.5 (0.0-1.3) K/mcL Eosinophils # 0.2 (0.0-0.6) K/mcL Basophils # 0.0 (0.0-0.2) K/mcL Immature Plt Fraction 10.4 H (1.1-6.1) % PT 11.3 (9.4-12.1) Seconds INR 1.0 APTT 34.0 (26.0-36.0) Seconds Sodium 143 (136-145) mEq/L Potassium 3.3 L (3.5-4.5) mEq/L Chloride 108 (98-109) mEq/L Carbon Dioxide 24 (19-29) mEq/L BUN 9 (7-20) mg/dL Creatinine 0.97 (0.57-1.11) mg/dL Est GFR ( Amer) > 60 (> 60) Est GFR (Non-Af Amer) 56 L (> 60) BUN/Creatinine Ratio 9 (6-26) Glucose 118 H (70-99) mg/dL Calculated Osmolality 296 (280-300) Calcium 9.3 (8.6-10.8) mg/dL Troponin I (0-0.03) ng/mL Urine Color (Yellow) Urine Clarity (Clear) Urine pH (5.0-8.0) pH Units Ur Specific [place] (1.010-1.025) Urine Protein (Neg-Trace) mg/dL Urine Glucose (UA) (Normal) mg/dL Urine Ketones (Negative) mg/dL Urine Blood (Negative) Urine Nitrite (Negative) Urine Bilirubin (Negative) Urine Urobilinogen (Normal) mg/dL Ur Leukocyte Esterase (Negative) Ur Culture Indicated? (NO) 01/27/17 01/28/17 Range/Units 23:49 00:00 WBC (4.3-11.1) K/mcL RBC (3.82-4.97) M/mcL Hgb (11.5-15.4) g/dL Hct (35.3-44.9) % MCV (83.0-100.0) fL MCH (28.0-33.3) pg MCHC (31.6-35.5) g/dL RDW (11.5-14.5) % Plt Count (140-400) K/mcL MPV (9.4-12.4) fL Immature Gran % (0-4) % Seg Neutrophils % % Lymphocytes % % Monocytes % % Eosinophils % % Basophils % % Neutrophils # (1.6-8.9) K/mcL Lymphocytes # (0.6-4.6) K/mcL Monocytes # (0.0-1.3) K/mcL Eosinophils # (0.0-0.6) K/mcL Basophils # (0.0-0.2) K/mcL Immature Plt Fraction (1.1-6.1) % PT (9.4-12.1) Seconds INR APTT (26.0-36.0) Seconds Sodium (136-145) mEq/L Potassium (3.5-4.5) mEq/L Chloride (98-109) mEq/L Carbon Dioxide (19-29) mEq/L BUN (7-20) mg/dL Creatinine (0.57-1.11) mg/dL Est GFR ( Amer) (> 60) Est GFR (Non-Af Amer) (> 60) BUN/Creatinine Ratio (6-26) Glucose (70-99) mg/dL Calculated Osmolality (280-300) Calcium (8.6-10.8) mg/dL Troponin I 0.01 (0-0.03) ng/mL Urine Color Yellow (Yellow) Urine Clarity Clear (Clear) Urine pH 7.0 (5.0-8.0) pH Units Ur Specific [place] 1.007 L (1.010-1.025) Urine Protein Negative (Neg-Trace) mg/dL Urine Glucose (UA) Normal (Normal) mg/dL Urine Ketones Negative (Negative) mg/dL Urine Blood Negative (Negative) Urine Nitrite Negative (Negative) Urine Bilirubin Negative (Negative) Urine Urobilinogen Normal (Normal) mg/dL Ur Leukocyte Esterase Negative (Negative) Ur Culture Indicated? NO (NO) - Radiology Data Radiology results reviewed: Yes I reviewed the patient's radiology results. Chest X-Ray 01/27/17 23:38 IMPRESSION: Negative portable chest. D/ / Shashank Osei MD / Shashank Osei MD Interpreting Provider: Shashank Osei MD - EKG Data EKG attestation: Yes I reviewed and interpreted this EKG. Rate: normal Rhythm: A.Fib Voltage: increased voltage throughout, c/w LVH Attestation Statement - Attestation Attestation: I examined this patient and my medical decision-making was reviewed with the Resident Physician. I agree with the documented findings, disposition and treatment plan as described except to the extent set forth below. Paroxysmal A-fib, felt herself go into fib a few hours ago. No LH/dizzy, no syncope/presyncope, no CP/SOB.
[2017-01-28 00:02] LABS: Prothrombin Time 11.3 Seconds (9.4-12.1)
[2017-01-28] MEDS ORDERED: Aspirin 325 MG TABLET PO ONE (00:02)
[2017-01-28 00:10] LABS: BUN/Creatinine Ratio 9 (6-26); Blood Urea Nitrogen 9 mg/dL (7-20); Calcium 9.3 mg/dL (8.6-10.8); Carbon Dioxide 24 mEq/L (19-29); Chloride 108 mEq/L (98-109); Glucose 118 mg/dL (70-99); Osmolality,Calculated 296 (280-300); Potassium 3.3 mEq/L (3.5-4.5); Sodium 143 mEq/L (136-145); eGFR For African Americans > 60 (> 60); eGFR For Non-African Americans 56 (> 60)
[2017-01-28 00:17] LABS: Bilirubin,Urine Negative (Negative); Blood,Urine Negative (Negative); Clarity,Urine Clear (Clear); Color,Urine Yellow (Yellow); Glucose,Urine (UA) Normal (Normal); Ketones,Urine Negative (Negative); Leukocyte Esterase,Urine Negative (Negative); Nitrite,Urine Negative (Negative); Protein,Urine Negative (Neg-Trace); Specific Gravity,Urine 1.007 (1.010-1.025); Urobilinogen,Urine Normal (Normal)
[2017-01-28 04:02] LABS: Thyroid Stimulating Hormone 3.381 mcIU/mL (0.350-4.840)
[2017-01-28] MEDS ORDERED: Acetaminophen 325 MG TABLET PO PRN (04:32)
[2017-01-28] MEDS ORDERED: Naloxone 0.4 MG/ML INJ IVP PRN (04:32)
[2017-01-28] MEDS ORDERED: Ondansetron 4 MG/2 ML VIAL IVP PRN (04:32)
[2017-01-28 05:53] LABS: Basophils % 0.3 %; Eosinophils # 0.1 K/mcL (0.0-0.6); Eosinophils % 3.9 %; Hematocrit 35.5 % (35.3-44.9); Hemoglobin 11.6 g/dL (11.5-15.4); Immature Granulocytes % 0.3 % (0-4); Lymphocytes # 1.1 K/mcL (0.6-4.6); Lymphocytes % 32.5 %; Mean Corpuscular HGB Conc 32.7 g/dL (31.6-35.5); Mean Corpuscular Hemoglobin 30.1 pg (28.0-33.3); Mean Corpuscular Volume 92.2 fL (83.0-100.0); Mean Platelet Volume 12.1 fL (9.4-12.4); Monocytes # 0.4 K/mcL (0.0-1.3); Monocytes % 12.8 %; Neutrophils # 1.7 K/mcL (1.6-8.9); Platelet Count 155 K/mcL (140-400); Red Blood Count 3.85 M/mcL (3.82-4.97); Red Cell Distribution Width 13.9 % (11.5-14.5); Segmented Neutrophils % 50.2 %
[2017-01-28 05:57] LABS: BUN/Creatinine Ratio 10 (6-26); Blood Urea Nitrogen 8 mg/dL (7-20); Calcium 8.8 mg/dL (8.6-10.8); Carbon Dioxide 24 mEq/L (19-29); Chloride 108 mEq/L (98-109); Glucose 98 mg/dL (70-99); Osmolality,Calculated 292 (280-300); Potassium 3.3 mEq/L (3.5-4.5); Sodium 142 mEq/L (136-145); eGFR For African Americans > 60 (> 60); eGFR For Non-African Americans > 60 (> 60)
--- NOTE | 2017-01-28 07:17 | Internal Med History&Physical ---
Date of Encounter: 01/28/17 Time of Encounter: 04:45 Assessment and Plan (1) Atrial fibrillation with rapid ventricular response Status: Acute stable controlled HR at this time; patient received 1 dose of IV Cardizem 10mg in the ER. Resume home doses of Metoprolol and Cardizem and monitor closely. Telemetry monitoring. Anticoagulation with Coumadin has been held about 3 weeks ago due to lower GI bleed, until she receives a Colonoscopy; (2) Non-Hodgkin lymphoma Status: Inactive Qualifiers: Non-Hodgkin lymphoma type: follicular Follicular lymphoma type: unspecified follicular type Lymphoma site: unspecified region Qualified Code (s): C82.90 - Follicular lymphoma, unspecified, unspecified site (3) Depression Status: Chronic Qualifiers: Depression Type: unspecified Qualified Code(s): F32.9 - Major depressive disorder, single episode, unspecified (4) Anxiety Status: Chronic (5) Hypertension Status: Chronic BP well-controlled; continue home meds; Qualifiers: Hypertension type: essential hypertension Qualified Code(s): I10 - Essential (primary) hypertension (6) CAD (coronary artery disease) Status: Chronic Qualifiers: Coronary Disease-Associated Artery/Lesion type: [place] artery [place] vs. transplanted heart: [place] heart Associated angina: without angina Qualified Code(s): I25.10 - Atherosclerotic heart disease of [place] coronary artery without angina pectoris (7) Hyperlipidemia Status: Chronic Qualifiers: Hyperlipidemia type: mixed hyperlipidemia Qualified Code(s): E78.2 - Mixed hyperlipidemia (8) Mitral valve prolapse Status: Chronic Internal Medicine - H&P: HPI Chief complaint: Palpitations Admitted From: Emergency Dept Plans for Post Hospital Care: Home History of present illness: Ms. Gee is a 76 year old female with h/o- a.fib presents with sudden onset of palpitations that started earlier last evening. Patient was at rest, watching TV when she began to experience palpitations associated with some chest discomfort and shortness of breath, which was persistent until she reached ER. No nausea, vomiting, abdominal pain, syncope. Her HR and symptoms have been better controlled since receiving IV Cardizem in the ER. Past Med Surg Social Fam HX - Past Medical History Medical history: arthritis, atrial fibrillation, cancer, CHF, coronary artery disease, GERD, GI bleed, hyperlipidemia, hypertension, malignancy, myocardial infarction, osteoporosis, renal disease, SVT, venous stasis, valvular heart disease, other Psychiatric history: anxiety, depression, other - Past Surgical History Surgical History: appendectomy, cancer surgery, cataract, cholecystectomy, hysterectomy, NELLA/BSO, other, LE vascular intervention - Social History Smoking Status: Never smoker Smokeless Tobacco Status: No Alcohol use: none Drug use: none Occupational status: retired Current living situation: Home, With Family Activity Level: Independent ambulation Recent Out of Country Travel Within the Last 8 Weeks: No - Family History Mother Adopted: No Family Member Ethnicity: Non- Living Status: Hx Family Cardiac Disorders: Yes (stroke) Hx Family Respiratory Disorders: No Hx Family Cancer: No Hx Family GI Disorders: No Hx Family Endocrine Disorder: No Hx Family Neuromuscular Disorders: No Hx Family Neurologic Disorders: Yes Hx Family HEENT Disorders: No Hx Family Autoimmune Disorders: No Father Living Status: Hx Family Cancer: Yes (COLON) Hx Family Neurologic Disorders: Yes (Dementia) Sister Living Status: Hx Family Cardiac Disorders: Yes (AL in 80s) Hx Family Cancer: Yes (Colon) Brother Living Status: Hx Family Cardiac Disorders: Yes ([place] in 80s) Hx Family Cancer: Yes (Pancreatic) Internal Medicine - H&P: Meds Metoprolol Tartrate [Lopressor] 100 mg PO BID 04/18/15 [History] Ranitidine HCl [Zantac] 150 mg PO BID 04/18/15 [History] Losartan Potassium [Cozaar] 25 mg PO DAILY 02/14/16 [History] Folic Acid 1 mg PO DAILY 10/10/16 [History] Lovastatin [Mevacor] 20 mg PO HS 10/10/16 [History] Albuterol Neb [Proventil Neb] 2.5 mg IH TID PRN 01/07/17 [History] Cyanocobalamin (Vitamin B-12) [Vitamin B12] 1,000 mcg PO DAILY 01/07/17 [History ] Diltiazem SR (12hr) [Cardizem SR] 60 mg PO DAILY 01/07/17 [History] Loratadine [Claritin] 10 mg PO DAILY PRN 01/07/17 [History] Pantoprazole Sodium [Protonix] 40 mg PO DAILY PRN 01/07/17 [History] Tramadol HCl [Ultram] 50 mg PO Q6H PRN 01/07/17 [History] Docusate [Colace] 100 mg PO BID PRN #60 capsule 01/08/17 [Rx] LORazepam [Ativan] 0.5 mg PO HS #0 01/08/17 [Rx] Allergies Penicillins Allergy (Verified 01/27/17 23:26) Rash BRANDON Inhibitors Adverse Reaction (Verified 01/27/17 23:26) Cough All Systems PM: A 10-system review of systems was performed and is negative for pertinent findings except as documented above in the HPI. - Constitutional Constitutional: no chills, no fever(s), no night sweats - EENT Eyes: no change in vision, no discharge, no pain, no photophobia Ears: no ear discharge, no ear pain, no tinnitus Nose, mouth and throat: no dysphagia, no nasal discharge, no neck pain, no sore throat - Cardiovascular Cardiovascular ROS IM: chest pain, dyspnea, palpitations - Respiratory Respiratory: no cough, no dyspnea, no wheezing, no excessive phlegm production - Gastrointestinal Gastrointestinal: no abdominal pain, no diarrhea, no hematemesis, no hematochezia, no melena, no nausea, no vomiting - Genitourinary Genitourinary: no change in urinary stream, no dysuria, no flank pain, no hematuria - Musculoskeletal Musculoskeletal ROS IM: no numbness, no tingling - Integumentary Integumentary IM: no rash, no unusual bruising - Neurological Neurological ROS: no confusion, no convulsions, no focal weakness, no numbness, no tingling, no tremor(s) - Hematologic/Lymphatic Hematologic/Lymphatic: no easy bruising - Constitutional Vitals: Temp Pulse Resp BP Pulse Ox 97.6 F 66 22 169/73 96 01/28/17 04:20 01/28/17 04:20 01/28/17 04:20 01/28/17 04:20 01/28/17 04:20 General appearance: Present: A&O X 3, answers questions appropriately - Respiratory Respiratory exam: Present: CTAB. Absent: accessory muscle use, rales, rhonchi, wheezes - Cardiovascular Cardiovascular exam: Present: RRR, +S1, +S2. Absent: diastolic murmur, gallop, rubs, systolic murmur - GI/Abdominal GI/Abdominal exam: Present: normal bowel sounds, soft, no peritoneal signs. Absent: distended, tenderness - Extremities Exam Extremities exam: Present: warm, radial pulses palpable and symetrical. Absent : calf tenderness, cyanotic, pedal edema - Neurological Exam Neurological exam: Present: CN II-XII intact, oriented X3, no focal deficits. Absent: pronater drift, facial droop, speech deficit - Skin Skin exam: Present: dry, intact Internal Med - H&P Results - Labs CBC & Chem 7: 01/28/17 05:07 01/28/17 05:07 Labs: Short CBC 01/28/17 Range/Units 05:07 WBC 3.4 L (4.3-11.1) K/mcL Hgb 11.6 (11.5-15.4) g/dL Hct 35.5 (35.3-44.9) % Plt Count 155 (140-400) K/mcL Neutrophils # 1.7 (1.6-8.9) K/mcL BMP 01/28/17 05:07 Sodium 142 Potassium 3.3 L Chloride 108 Carbon Dioxide 24 BUN 8 Creatinine 0.79 Glucose 98 Calcium 8.8 Cardiac Enzymes 01/28/17 Range/Units 05:07 Troponin I 0.00 (0-0.03) ng/mL
[2017-01-28 08:02] VITALS: BP 140/65
--- NOTE | 2017-01-28 08:50 | Discharge Summary ---
<Dinesh Pineda - Last Filed: 01/28/17 08:46> Date of Encounter: 01/28/17 Time of Encounter: 08:46 - Discharge Diagnosis (1) Atrial fibrillation with RVR Priority: Primary Status: Resolved (2) DVT prophylaxis Priority: Secondary Status: Acute (3) Depression Priority: Secondary Status: Chronic Qualifiers: Depression Type: unspecified Qualified Code(s): F32.9 - Major depressive disorder, single episode, unspecified (4) Anxiety Priority: Secondary Status: Chronic (5) Hypertension Priority: Secondary Status: Chronic Qualifiers: Hypertension type: essential hypertension (6) Mitral valve prolapse Priority: Secondary Status: Chronic - Discharge Medications Home Medications: Metoprolol Tartrate [Lopressor] 100 mg PO BID 04/18/15 [History] Ranitidine HCl [Zantac] 150 mg PO BID 04/18/15 [History] Losartan Potassium [Cozaar] 25 mg PO DAILY 02/14/16 [History] Folic Acid 1 mg PO DAILY 10/10/16 [History] Lovastatin [Mevacor] 20 mg PO HS 10/10/16 [History] Albuterol Neb [Proventil Neb] 2.5 mg IH TID PRN 01/07/17 [History] Cyanocobalamin (Vitamin B-12) [Vitamin B12] 1,000 mcg PO DAILY 01/07/17 [History ] Diltiazem SR (12hr) [Cardizem SR] 60 mg PO DAILY 01/07/17 [History] Loratadine [Claritin] 10 mg PO DAILY PRN 01/07/17 [History] Pantoprazole Sodium [Protonix] 40 mg PO DAILY PRN 01/07/17 [History] Tramadol HCl [Ultram] 50 mg PO Q6H PRN 01/07/17 [History] Docusate [Colace] 100 mg PO BID PRN #60 capsule 01/08/17 [Rx] LORazepam [Ativan] 0.5 mg PO HS #0 01/08/17 [Rx] Allergies/Adverse Reactions: Allergies Penicillins Allergy (Verified 01/27/17 23:26) Rash BRANDON Inhibitors Adverse Reaction (Verified 01/27/17 23:26) Cough Date of admission: 01/28/17 02:22 Primary care physician: PCP NO Discharging clinician: Dinesh Pineda Anticipated date of discharge: 01/28/17 - Patient Status Disposition: Home, Self-Care Condition: Good Functional capacity at discharge: independent ambulation Overall status at discharge: patient is back to baseline - Discharge Instructions Instructions: Myocardial Infarction (DC), Atrial Fibrillation (GEN), Chest Pain (DC), Chronic Hypertension (DC) Follow Up With: NO,PCP [Primary Care Provider] - Chandana Kumar DO [Partnered Physician] - (Patient already has appointment in february) Additional Instructions: Please return to ER if you have acute onset of chest pain, shortness of breath, nausea, vomiting, sweating, loss of consciousness. Please follow up with her primary care physician the next 5-7 days. 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 - Diet and Activity Activity: increase activity as tolerated Diet: low fat, low cholesterol, low salt diet Hospital course: Ms. Gee is a 76 year old female was watching TV when she started feeling her heart race. She became mildly short of breath, nausea. She denies chest pain, vomiting, syncope, lightheadedness, blurry vision. Patient arrived in the ER and was found to be in atrial fibrillation with RVR. rate 120-130s. EKG shows a fib with rate 91. Patient was started on Coumadin in October however was stopped secondary to GI bleed. She will have a colonoscopy at the end of January. Patient was given Cardizem bolus and her rate decreased to 60 and to sinus rhythm. Patient's potassium was 3.3, chest x-ray was within normal limits. TSH , troponin within normal limits. At this point patient denies nausea, vomiting, chest pain, shortness of breath. She is able to ambulate independently, and has a good appetite. Patient is ready for discharge. Plan: Continue Cardizem and metoprolol. Follow up with cardiology appointment in February. Follow-up with primary care physician in the next 5-7 days. - Time Spent with Patient Total time spent providing and/or coordinating discharge services: - Constitutional Vitals: Temp Pulse Resp BP Pulse Ox 97.6 F 66 15 140/65 96 01/28/17 07:58 01/28/17 07:58 01/28/17 07:58 01/28/17 07:58 01/28/17 04:20 - Head Head exam: Present: atraumatic, normocephalic - Eye Eye exam: Present: PERRL, conjuntiva pink, sclera anicteric - Neck Neck exam general surgery: Present: supple, trachea midline. Absent: lymphadenopathy - Respiratory Respiratory exam: Present: CTAB. Absent: accessory muscle use, rales, rhonchi, wheezes - Cardiovascular Cardiovascular exam: Present: RRR, +S1, +S2. Absent: diastolic murmur, gallop, rubs, systolic murmur - GI/Abdominal GI/Abdominal exam: Present: normal bowel sounds, soft, no peritoneal signs. Absent: distended, tenderness - Extremities Exam Extremities exam: Present: warm, radial pulses palpable and symetrical. Absent : calf tenderness, cyanotic, pedal edema - Neurological Exam Neurological exam: Present: CN II-XII intact, oriented X3, no focal deficits. Absent: pronater drift, facial droop, speech deficit - Skin Skin exam: Present: dry, intact <Jordan Powell - Last Filed: 01/28/17 18:07> Date of Encounter: 01/28/17 - Discharge Diagnosis (1) Atrial fibrillation Priority: Primary Status: Acute Comments: Rate controlled now. Qualifiers: Atrial fibrillation type: chronic Qualified Code(s): I48.2 - Chronic atrial fibrillation (2) Hypertension Status: Chronic Qualifiers: Hypertension type: essential hypertension (3) Hyperlipidemia Priority: Secondary Status: Chronic Qualifiers: Hyperlipidemia type: mixed hyperlipidemia (4) CAD (coronary artery disease) Priority: Secondary Status: Chronic Qualifiers: Coronary Disease-Associated Artery/Lesion type: [place] artery [place] vs. transplanted heart: [place] heart Associated angina: without angina Qualified Code(s): I25.10 - Atherosclerotic heart disease of [place] coronary artery without angina pectoris Date of admission: 01/28/17 02:22 Primary care physician: PCP NO Hospital course: Ms. Gee is a 76 year old female - Time Spent with Patient Total time spent providing and/or coordinating discharge services: - Constitutional Vitals: Temp Pulse Resp BP Pulse Ox 97.6 F 66 15 140/65 96 01/28/17 07:58 01/28/17 07:58 01/28/17 07:58 01/28/17 07:58 01/28/17 04:20 - Attending Attestation I examined this patient and my medical decision-making was reviewed with the Resident Physician on 01/28/17. I agree with the documented findings, disposition and treatment plan as described except to the extent set forth below. Ms. Gee is feeling well. Heart rate is controlled now. She is afebrile and vitals stable. No other new issues Exam Alert. Comfortable Heart irreg but controlled rate Lungs negative Plan D/C today Follow up with Dr. Kumar as arranged in February.
[2017-01-28] MEDS ORDERED: Diltiazem SR (12hr) 60 MG CAPSULE PO SCH (09:00)
[2017-01-28] MEDS ORDERED: Metoprolol 100 MG TABLET PO SCH (09:00)
[2017-01-28] MEDS ORDERED: Folic Acid 1 MG TABLET PO SCH (09:00)
--- NOTE | 2017-01-28 18:48 | Electrocardiograph Report ---
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
[2017-01-28] MEDS ORDERED: *HR* LORazepam 0.5 MG TABLET PO SCH (21:00)
== END 2017-01-28 11:12 | disposition home or self-care (01) ==
LOC: 2NENU 23:14 → EMEROO 23:14 → 2NENU 01-28 03:15
PROVIDERS: ADMIT Internal Medicine; ATTEND Internal Medicine

== ENCOUNTER 2018-04-23 12:34 | Inpatient (IN) ==
[2018-04-23] MEDS ORDERED: Ondansetron 4 MG/2 ML VIAL IVP ONE (13:08)
[2018-04-23 13:27] LABS: Basophils % 0.5 %; Eosinophils # 0.2 K/mcL (0.0-0.6); Eosinophils % 3.5 %; Hematocrit 41.1 % (35.3-44.9); Hemoglobin 13.1 g/dL (11.5-15.4); Immature Granulocytes % 0.2 % (0-4); Lymphocytes # 1.4 K/mcL (0.6-4.6); Lymphocytes % 25.2 %; Mean Corpuscular HGB Conc 31.9 g/dL (31.6-35.5); Mean Corpuscular Hemoglobin 29.2 pg (28.0-33.3); Mean Corpuscular Volume 91.7 fL (83.0-100.0); Mean Platelet Volume 12.3 fL (9.4-12.4); Monocytes # 0.6 K/mcL (0.0-1.3); Monocytes % 10.8 %; Neutrophils # 3.4 K/mcL (1.6-8.9); Platelet Count 187 K/mcL (140-400); Red Blood Count 4.48 M/mcL (3.82-4.97); Red Cell Distribution Width 14.5 % (11.5-14.5); Segmented Neutrophils % 59.8 %
[2018-04-23 13:32] LABS: INR 2.3; Prothrombin Time 25.8 Seconds (9.4-12.1)
[2018-04-23 13:35] LABS: Activated Partial Thrombo Time 43.2 Seconds (26.0-36.0)
[2018-04-23 13:42] LABS: Troponin I < 0.03 ng/mL (< 0.04)
[2018-04-23 13:51] LABS: BUN/Creatinine Ratio 10 (6-26); Blood Urea Nitrogen 11 mg/dL (8-23); Calcium 9.8 mg/dL (8.6-10.3); Carbon Dioxide 23 mEq/L (23-29); Chloride 107 mEq/L (98-107); Glucose 111 mg/dL (70-105); Osmolality,Calculated 290 (280-300); Potassium 4.4 mEq/L (3.5-5.1); Sodium 140 mEq/L (136-145); eGFR For Non-African Americans 46 (> 60)
[2018-04-23 13:55] LABS: Thyroid Stimulating Hormone 2.327 mcIU/mL (0.340-5.600)
[2018-04-23] MEDS ORDERED: 0.9 % Sodium Chloride 1,000 ML IVC SCH (14:15)
--- NOTE | 2018-04-23 14:19 | Emergency Department Note ---
Disposition Clinical Impression: Dizziness, Symptomatic bradycardia, Polypharmacy Disposition: Admitted As Inpatient Condition: Good Referrals: Noemí Blount MD [Primary Care Provider] - General Adult HPI - General Chief complaint: ED Arrhythmia/Palpitations Stated complaint: PALPITATIONS Time Seen by Provider: 04/23/18 12:43 Source: patient Limitations: age Nursing Notes Reviewed: Yes Vital Signs Reviewed: Yes - History of Present Illness HPI Narrative: Patient with a history of paroxysmal A. fib on Coumadin for anticoagulation presents for evaluation of dizziness and near syncope. She has palpitations. She has had this in the past. Related to her A. fib. She has had multiple episodes that have resolved upon emergency department arrival she waited 3 days when symptoms progressively got worse she could no longer perform tasks at home secondary to dizziness with standing. On arrival her EKG shows bradycardia. On the monitor she drops down into the 40s. Blood pressure has been stable. After she has been resting in the bed for proximally 5 minutes she states that she is asymptomatic as long as she does not move around. Patient will be continued to monitor closely. She takes Cardizem 60 as well as metoprolol 100 twice a day. Possible reversal may be required. We will discuss with cardiology. Pain Scale: 0 - Related Data Home Medications Medication Instructions Recorded Confirmed Metoprolol Tartrate [Lopressor] 100 mg PO BID 04/18/15 04/07/18 Ranitidine HCl [Zantac] 150 mg PO BID 04/18/15 04/07/18 Folic Acid 1 mg PO DAILY 10/10/16 04/07/18 Lovastatin [Mevacor] 20 mg PO HS 10/10/16 04/07/18 Albuterol Neb [Proventil Neb] 2.5 mg IH TID PRN 01/07/17 04/07/18 Cyanocobalamin (Vitamin B-12) 1,000 mcg PO DAILY 01/07/17 04/07/18 [Vitamin B12] Diltiazem SR (12hr) [Cardizem SR] 60 mg PO DAILY 01/07/17 04/07/18 Loratadine [Claritin] 10 mg PO DAILY PRN 01/07/17 04/07/18 Tramadol HCl [Ultram] 50 mg PO Q6H PRN 01/07/17 04/07/18 Warfarin [Coumadin] 4 mg PO AD 03/01/17 04/07/18 Previous Rx's Medication Instructions Recorded Docusate [Colace] 100 mg PO BID PRN #60 capsule 01/08/17 LORazepam [Ativan] 0.5 mg PO HS #0 01/08/17 Pantoprazole Sodium [Protonix] 40 mg PO DAILY PRN #30 tablet. 04/07/18 Allergies Allergy/AdvReac Type Severity Reaction Status Date / Time BRANDON Inhibitors AdvReac Cough Verified 04/07/18 11:02 Penicillins AdvReac Rash Verified 04/07/18 11:02 Review of Systems: CONSTITUTIONAL: Generalized weakness and fatigue No weight loss, fever, chills. HEENT: Eyes: No visual changes. Ears, Nose, Throat: No hearing loss, difficulty talking or unable to swallow. SKIN: No rash or itching. CARDIOVASCULAR: No chest pain, chest pressure or chest discomfort. No palpitations or edema. RESPIRATORY: No shortness of breath, cough or sputum. GASTROINTESTINAL: No anorexia, nausea, vomiting or diarrhea. No abdominal pain or blood. GENITOURINARY: No burning on urination or hematuria. NEUROLOGICAL: Dizziness and near syncope No headache, paralysis, ataxia, numbness or tingling in the extremities. No change in bowel or bladder control. MUSCULOSKELETAL: No muscle pain, back pain, joint pain or stiffness. Past Medical History - Past Medical History Medical history: Reports: atrial fibrillation Surgical history: Reports: appendectomy, cancer surgery, cataract, cholecystectomy, hysterectomy, NELLA/BSO, other, LE vascular intervention Psychiatric history: Reports: anxiety, depression, other STATISTICAL TYPIST history: Reports: bilateral tubal ligation - Social History Smoking Status: Never smoker Smokeless Tobacco Status: No Alcohol use: Reports: none Drug use: Reports: none Physical Exam General: Well appearing, nontoxic, no acute distress Head: Normocephalic Atraumatic Eyes: PERRL, EOMI ENT: Airway patent, no stridor Neck: supple Chest: Lungs clear to auscultation bilateral Cardiac: Irregular rate and bradycardia Abdomen: soft, nontender, nondistended; no guarding, rebound, or tenderness to percussion Musculoskeletal: Calves symmetric, nontender, no palpable cord Skin: No rash, normal skin tone Neuro: Alert and Oriented to person, place, and time; No focal deficit - General Limitations: age General appearance: alert, lethargic Course - Reevaluation(s) Reevaluation #1: Patient's heart rate likely secondary to Cardizem and metoprolol. The patient is asymptomatic with stable blood pressure. During observation her heart rate did drop lower into the low 40s. She continued to maintain blood pressure. Glucagon was ordered in order to have it available for possible reversal. However after approximately an hour and a half stay in the emergency department her heart rate has not dipped below 55. I do believe that her medications she took at 9:00 this morning have had a maximal effect. Patient has been improving. We will continue to monitor closely. Patient will require telemetry. - Consultations Consultation #1: Discussed with Dr. Kumar. Likely polypharmacy. Unless the patient is symptomatic at rest or happening low blood pressures. No indication for reversal. Consultation #2: Discussed with hospitalist. Patient accepted for admission. Vital Signs Temperature 97.8 F 04/23/18 12:38 Pulse Rate 64 04/23/18 12:38 Respiratory Rate 16 04/23/18 12:38 Blood Pressure 126/83 04/23/18 12:38 O2 Sat by Pulse Oximetry 94 04/23/18 12:38 Temperature 97.8 F 04/23/18 12:38 Pulse Rate 57 04/23/18 13:53 Respiratory Rate 16 04/23/18 13:53 Blood Pressure 121/63 04/23/18 13:53 O2 Sat by Pulse Oximetry 98 04/23/18 13:53 Oxygen Delivery Oxygen Delivery Room Air Medical Decision Making - Medical Records Medical records reviewed: Yes I reviewed the patient's medical records. - Lab Data Lab results reviewed: Yes I reviewed the patient's lab results. Result diagrams: 04/23/18 13:09 04/23/18 13:09 Lab Results 04/23/18 04/23/18 04/23/18 Range/Units 13:09 13:09 13:09 WBC 5.7 (4.3-11.1) K/mcL RBC 4.48 (3.82-4.97) M/mcL Hgb 13.1 (11.5-15.4) g/dL Hct 41.1 (35.3-44.9) % MCV 91.7 (83.0-100.0) fL MCH 29.2 (28.0-33.3) pg MCHC 31.9 (31.6-35.5) g/dL RDW 14.5 (11.5-14.5) % Plt Count 187 (140-400) K/mcL MPV 12.3 (9.4-12.4) fL Immature Gran % 0.2 (0-4) % Seg Neutrophils % 59.8 % Lymphocytes % 25.2 % Monocytes % 10.8 % Eosinophils % 3.5 % Basophils % 0.5 % Neutrophils # 3.4 (1.6-8.9) K/mcL Lymphocytes # 1.4 (0.6-4.6) K/mcL Monocytes # 0.6 (0.0-1.3) K/mcL Eosinophils # 0.2 (0.0-0.6) K/mcL Basophils # 0.0 (0.0-0.2) K/mcL PT 25.8 H (9.4-12.1) Seconds INR 2.3 APTT 43.2 H (26.0-36.0) Seconds Sodium (136-145) mEq/L Potassium (3.5-5.1) mEq/L Chloride (98-107) mEq/L Carbon Dioxide (23-29) mEq/L BUN (8-23) mg/dL Creatinine (0.60-1.20) mg/dL Est GFR ( Amer) (> 60) Est GFR (Non-Af Amer) (> 60) BUN/Creatinine Ratio (6-26) Glucose (70-105) mg/dL Calculated Osmolality (280-300) Calcium (8.6-10.3) mg/dL Magnesium 2.0 (1.6-2.6) mg/dL Troponin I (< 0.04) ng/mL TSH 2.327 (0.340-5.600) mcIU/mL 04/23/18 Range/Units 13:09 WBC (4.3-11.1) K/mcL RBC (3.82-4.97) M/mcL Hgb (11.5-15.4) g/dL Hct (35.3-44.9) % MCV (83.0-100.0) fL MCH (28.0-33.3) pg MCHC (31.6-35.5) g/dL RDW (11.5-14.5) % Plt Count (140-400) K/mcL MPV (9.4-12.4) fL Immature Gran % (0-4) % Seg Neutrophils % % Lymphocytes % % Monocytes % % Eosinophils % % Basophils % % Neutrophils # (1.6-8.9) K/mcL Lymphocytes # (0.6-4.6) K/mcL Monocytes # (0.0-1.3) K/mcL Eosinophils # (0.0-0.6) K/mcL Basophils # (0.0-0.2) K/mcL PT (9.4-12.1) Seconds INR APTT (26.0-36.0) Seconds Sodium 140 (136-145) mEq/L Potassium 4.4 (3.5-5.1) mEq/L Chloride 107 (98-107) mEq/L Carbon Dioxide 23 (23-29) mEq/L BUN 11 (8-23) mg/dL Creatinine 1.14 (0.60-1.20) mg/dL Est GFR ( Amer) 56 L (> 60) Est GFR (Non-Af Amer) 46 L (> 60) BUN/Creatinine Ratio 10 (6-26) Glucose 111 H (70-105) mg/dL Calculated Osmolality 290 (280-300) Calcium 9.8 (8.6-10.3) mg/dL Magnesium (1.6-2.6) mg/dL Troponin I < 0.03 (< 0.04) ng/mL TSH (0.340-5.600) mcIU/mL - Radiology Data Radiology results reviewed: Yes I reviewed the patient's radiology results. - EKG Data EKG #1 EKG attestation: Yes I reviewed and interpreted this EKG. EKG results narrative: EKG shows atrial fibrillation with a slow response. Ventricular rate of 51. QRS 97. QTC 408. Patient has no significant ST elevations or depressions. No previous EKG at this time for comparison.
[2018-04-23] MEDS ORDERED: Loratadine 10 MG TABLET PO PRN (15:00)
[2018-04-23] MEDS ORDERED: Albuterol 2.5 MG/3 ML NEBULIZER IH PRN (15:00)
[2018-04-23] MEDS ORDERED: Naloxone 0.4 MG/ML INJ IVP PRN (15:01)
[2018-04-23] MEDS ORDERED: Warfarin perPT PO PRN (18:00)
[2018-04-23] MEDS ORDERED: *HR* Warfarin 4 MG TABLET PO ONE (18:00)
--- NOTE | 2018-04-23 19:51 | Internal Med History&Physical ---
Date of Encounter: 04/23/18 Time of Encounter: 17:30 Internal Medicine - H&P: HPI Chief complaint: Palpitations Admitted From: Emergency Dept Plans for Post Hospital Care: Home History of present illness: Ms. Gee is a 77 year old female with hx of a fib presented to ED with complaints of palpitations. She also had complaints of dizziness and near syncope. She was evaluated and placed in observation. Ms Gee relates multiple episodes of dizziness and near syncope. Feels palpitations in her chest. No CP. No worsening dyspnea. Symptoms worsening over 3 days so she came to ED today. Denies prior episode. No abd pain or GI issues. Cardiology called in ED when her heart rate noted to be in 40s. Meds to be held and reevaluated. No weakness, numbness or parasthesias noted. At this time she feels about baseline. Past Med Surg Social Fam HX - Past Medical History Source: patient Medical history: atrial fibrillation Additional medical history: lymphoma, lymph nodes removed R sided Psychiatric history: anxiety, depression - Past Surgical History Surgical History: appendectomy, cancer surgery, cataract, cholecystectomy, hysterectomy, NELLA/BSO, other Additional surgical history: lymph node removed - Social History Smoking Status: Never smoker Smokeless Tobacco Status: No Alcohol use: none Drug use: none - Family History Mother Adopted: No Family Member Ethnicity: Non- Living Status: Age at : 80 Hx Family Cardiac Disorders: Yes (stroke) Hx Family Respiratory Disorders: No Hx Family Cancer: No Hx Family GI Disorders: No Hx Family Endocrine Disorder: No Hx Family Neuromuscular Disorders: No Hx Family Neurologic Disorders: Yes (CVA) Hx Family HEENT Disorders: No Hx Family Autoimmune Disorders: No Father Age: 80 Living Status: Hx Family Cancer: Yes (COLON) Hx Family Neurologic Disorders: Yes (alzheimer's) Sister Living Status: Hx Family Cardiac Disorders: Yes (ID in 80s) Hx Family Cancer: Yes (Colon) Brother Living Status: Hx Family Cardiac Disorders: Yes (ID in 80s) Hx Family Cancer: Yes (Pancreatic) Internal Medicine - H&P: Meds Metoprolol Tartrate [Lopressor] 100 mg PO BID 04/18/15 [History] Ranitidine HCl [Zantac] 150 mg PO BID 04/18/15 [History] Folic Acid 1 mg PO DAILY 10/10/16 [History] Lovastatin [Mevacor] 20 mg PO HS 10/10/16 [History] Albuterol Neb [Proventil Neb] 2.5 mg IH TID PRN 01/07/17 [History] Cyanocobalamin (Vitamin B-12) [Vitamin B12] 1,000 mcg PO Q48H 01/07/17 [History] Diltiazem SR (12hr) [Cardizem SR] 60 mg PO DAILY 01/07/17 [History] Loratadine [Claritin] 10 mg PO DAILY PRN 01/07/17 [History] LORazepam [Ativan] 0.5 mg PO HS #0 01/08/17 [Rx] Warfarin [Coumadin] 4 mg PO DAILY 03/01/17 [History] 3 Allergy/AdvReac Type Severity Reaction Status Date / Time BRANDON Inhibitors AdvReac Cough Verified 04/07/18 11:02 Penicillins AdvReac Rash Verified 04/07/18 11:02 All Systems PM: A 10-system review of systems was performed and is negative for pertinent findings except as documented above in the HPI. - Constitutional Constitutional: fatigue - EENT Eyes: no diplopia, no pain Ears: no ear pain Nose, mouth and throat: no dry mouth, no mouth pain, no sinus pain - Cardiovascular Cardiovascular ROS IM: irregular heart rhythm, lightheadedness, palpitations, no chest pain - Respiratory Respiratory: no dyspnea, no dyspnea on exertion, no chest congestion - Gastrointestinal Gastrointestinal: no abdominal pain, no diarrhea, no nausea, no vomiting - Genitourinary Genitourinary: no difficulty urinating, no urinary frequency, no urinary hesitancy - Musculoskeletal Musculoskeletal ROS IM: arthralgias, no stiffness - Integumentary Integumentary IM: no erythema, no rash - Neurological Neurological ROS: disequilibrium, dizziness, no memory loss, no numbness, no paresthesias - Endocrine Endocrine IM: no excessive sweating, no flushing - Hematologic/Lymphatic Hematologic/Lymphatic: no easy bleeding - Allergic/Immunologic Allergic/Immunologic: no throat swelling, no wheezing - Constitutional Vitals: Temp Pulse Resp BP Pulse Ox 98.3 F 78 16 130/83 94 04/23/18 18:13 04/23/18 18:13 04/23/18 18:13 04/23/18 18:13 04/23/18 18:13 General appearance: Present: A&O X 3, pleasant, answers questions appropriately - Head Head exam: Present: atraumatic, normocephalic - Eye Eye exam: Present: EOMI, conjuntiva pink - ENT ENT exam: Present: mucous membranes moist, normal oropharynx - Neck Neck exam general surgery: Present: normal inspection. Absent: tenderness - Respiratory Respiratory exam: Present: CTAB. Absent: rales, rhonchi, wheezes - Cardiovascular Cardiovascular exam: Present: irregular rhythm. Absent: tachycardia - GI/Abdominal GI/Abdominal exam: Present: normal bowel sounds, soft. Absent: mass, tenderness - Extremities Exam Extremities exam: Present: warm. Absent: pedal edema, tenderness - Neurological Exam Neurological exam: Present: alert, oriented X3, no focal deficits - Psychiatric Psychiatric exam: Present: normal affect, normal mood - Skin Skin exam: Present: dry, warm Internal Med - H&P Results - Labs CBC & Chem 7: 04/23/18 13:09 04/23/18 13:09 - Assessment and plan (1) Bradycardia, drug induced Current Visit: Yes Status: Acute Assessment and plan: Presumed due to rate controlling medications. Meds currently on hold. Monitoring for tachycardia now. (2) Atrial fibrillation Current Visit: No Status: Chronic Assessment and plan: Pt with hx of atrial fibrillation on rate controlling medications. Now bradycardic. Meds to be held. Placed on tele monitor. Cardiology to see. PRN treatment for tachycardia if occurs. Qualifiers: Atrial fibrillation type: chronic Qualified Code(s): I48.2 - Chronic atrial fibrillation (3) Dizziness Current Visit: Yes Status: Acute Assessment and plan: Related to heart rate. Symptomatic treatment. (4) CAD (coronary artery disease) Current Visit: No Status: Chronic Assessment and plan: Chronic issue. Cont meds as able. Qualifiers: Coronary Disease-Associated Artery/Lesion type: [place] artery [place] vs. transplanted heart: [place] heart Associated angina: without angina Qualified Code(s): I25.10 - Atherosclerotic heart disease of [place] coronary artery without angina pectoris (5) Hypertension Current Visit: Yes Status: Chronic Assessment and plan: Controlled at this time. Qualifiers: Hypertension type: essential hypertension Qualified Code(s): I10 - Essential (primary) hypertension - Time Spent With Patient Total time spent is greater than 50% in coordination of care (as documented) at patient's floor/unit and/or counseling patient:
[2018-04-23] MEDS: Acetaminophen 325 MG TABLET PO PRN (19:52)
[2018-04-23] MEDS: Famotidine 20 MG TABLET PO SCH (21:22)
[2018-04-23] MEDS: *HR* LORazepam 0.5 MG TABLET PO SCH (21:22)
[2018-04-24 06:29] LABS: Basophils % 0.3 %; Eosinophils # 0.2 K/mcL (0.0-0.6); Eosinophils % 4.9 %; Hematocrit 39.4 % (35.3-44.9); Hemoglobin 12.8 g/dL (11.5-15.4); Immature Granulocytes % 0.3 % (0-4); Lymphocytes # 1.2 K/mcL (0.6-4.6); Lymphocytes % 32.9 %; Mean Corpuscular HGB Conc 32.5 g/dL (31.6-35.5); Mean Corpuscular Hemoglobin 30.2 pg (28.0-33.3); Mean Corpuscular Volume 92.9 fL (83.0-100.0); Mean Platelet Volume 12.4 fL (9.4-12.4); Monocytes # 0.5 K/mcL (0.0-1.3); Monocytes % 12.5 %; Neutrophils # 1.8 K/mcL (1.6-8.9); Platelet Count 133 K/mcL (140-400); Red Blood Count 4.24 M/mcL (3.82-4.97); Red Cell Distribution Width 14.1 % (11.5-14.5); Segmented Neutrophils % 49.1 %
[2018-04-24 06:35] LABS: INR 2.4; Prothrombin Time 26.6 Seconds (9.4-12.1)
[2018-04-24 06:52] LABS: BUN/Creatinine Ratio 15 (6-26); Blood Urea Nitrogen 12 mg/dL (8-23); Calcium 9.1 mg/dL (8.6-10.3); Carbon Dioxide 26 mEq/L (23-29); Chloride 109 mEq/L (98-107); Glucose 97 mg/dL (70-105); Osmolality,Calculated 298 (280-300); Potassium 3.7 mEq/L (3.5-5.1); Sodium 144 mEq/L (136-145); eGFR For Non-African Americans > 60 (> 60)
[2018-04-24] MEDS: Famotidine 20 MG TABLET PO SCH ×2 (07:55→22:11)
[2018-04-24] MEDS: Folic Acid 1 MG TABLET PO SCH (07:55)
--- NOTE | 2018-04-24 09:03 | Cardiology Consult Note ---
Date of Encounter: 04/24/18 Time of Encounter: 09:02 Assessment and Plan (1) PAF (paroxysmal atrial fibrillation) Current Visit: Yes Status: Acute Known hx of PAF--on Lopressor 100mg BID and Cardizem 60mg daily at home. Presented with palpitations, dizziness/lightheadedness, found to be in a-fib with slow ventricular response. HR reportedly as low as 40s, ECG rate 51. AV magaly blockers held--HR improved. 12 hr tele AVG HR 87, A-Fib. Electrolytes and TSH normal. Pt has had multiple ED visits in the past year for symptomatic A-Fib episodes. Discussed possibility of starting antiarrhythmics. Pt is considering. Of note, no prescription coverage. She pays out of pocket. Continue to hold AV magaly blockers for another night. Will consult EP tomorrow for further recs. Anticoagulated on Coumadin, INR 2.4. TTE 03/04/18: LVEF 60%. Asymmetric basal septal hypertrophy. No LVOT obstruction. Normal right ventricular structure and function. Severely dilated left atrium. Chordal AKSHAT is present. No LVOT obstruction. Moderate mitral regurgitation. No pulmonary hypertension. The IVC is dilated. Continue to follow. (2) Atrial fibrillation with slow ventricular response Current Visit: Yes Status: Acute As above. HR improved with holding of AV magaly blockers. (3) Myxomatous mitral valve regurgitation Current Visit: Yes Status: Acute TTE 03/04/18: Chordal AKSHAT is present. No LVOT obstruction. Moderate mitral regurgitation. Discussion w patient/family: The assessment and plan as outlined above was discussed with the patient and/or family members who expressed understanding and agreement. All questions were answered. Thank you for involving us in the care of your patient. Please call with any questions. I will discuss all the above with Dr. Kumar and make changes as necessary. History of Present Illness Consult date: 04/24/18 Consult reason: PAF Chief complaint: palpitations, dizziness History of present illness: Ms. Gee is a 77 year old female with PMH of myxomatous mitral valve with bileaflet mitral valve prolapse, mild to moderate MR, and redundant chordae tendonae/chordal with systolic anterior motion into the LVOT. No significant LVOT obstruction noted by Doppler. Patient has known PAF anticoagulation on Coumadin, on BB and CCB at home. Pt reports she started having palpitations on , then associated dizziness/lightheadedness on Wednesday. Symptoms persisted, prompting ED evaluation. HR reportedly in the 40s. EKG shows A-Fib, HR 51. AV magaly blockers were held and cardiology consulted for further recs. HR currently 70s. She admits to dyspnea, which she typically has in A-Fib. She remains in A-Fib. Previous testing: TTE 03/04/18: LVEF 60%. Asymmetric basal septal hypertrophy. No LVOT obstruction. Normal right ventricular structure and function. Severely dilated left atrium. Chordal AKSHAT is present. No LVOT obstruction. Moderate mitral regurgitation. No pulmonary hypertension. The IVC is dilated. Holter monitor 03/15/18: Baseline rhythm normal sinus. Occasional PVCs. Occasional PACs. Several short runs PAT. Event monitor 04/17/2016: normal rhythm with occasional extra beats. Holter monitor 11/13/2016: Average heart rate 63 bpm. Occasional PVCs and PACs. Several brief episodes of SVT, longest 5 beats. No symptoms reported. The LHC 02/14/2016: LM normal. LAD proximal 15% stenosis. Cx nl. Ramus 15% stenosis. RCA, RPDA normal. KELSEY 01/17/2016: LVEF 60%. Normal LV, RV size function. Small PFO. Chordal AKSHAT into the LVOT, no obstruction. Mild to moderate MR. Stress ECG/echocardiogram 03/26/2016: was negative for ischemia. Occasional PVCs throughout the study. Systolic anterior motion (AKSHAT) of the mitral valve and redundant chordae tendineae into the LVOT. No LVOT obstruction at rest or with dobutamine. Mild mitral regurgitation noted at rest. EF 60-65%. Past Med Surg Social Fam HX - Past Medical History Medical history: atrial fibrillation Additional medical history: lymphoma, lymph nodes removed R sided Psychiatric history: anxiety, depression - Past Surgical History Surgical History: appendectomy, cancer surgery, cataract, cholecystectomy, hysterectomy, NELLA/BSO, other Additional surgical history: lymph node removed - Social History Smoking Status: Never smoker Smokeless Tobacco Status: No Alcohol use: none Drug use: none - Family History Mother Adopted: No Family Member Ethnicity: Non- Living Status: Age at : 80 Hx Family Cardiac Disorders: Yes (stroke) Hx Family Respiratory Disorders: No Hx Family Cancer: No Hx Family GI Disorders: No Hx Family Endocrine Disorder: No Hx Family Neuromuscular Disorders: No Hx Family Neurologic Disorders: Yes (CVA) Hx Family HEENT Disorders: No Hx Family Autoimmune Disorders: No Father Age: 80 Living Status: Hx Family Cancer: Yes (COLON) Hx Family Neurologic Disorders: Yes (alzheimer's) Sister Living Status: Hx Family Cardiac Disorders: Yes ([place] in 80s) Hx Family Cancer: Yes (Colon) Brother Living Status: Hx Family Cardiac Disorders: Yes ([place] in 80s) Hx Family Cancer: Yes (Pancreatic) Medications and Allergies Metoprolol Tartrate [Lopressor] 100 mg PO BID 04/18/15 [History] Ranitidine HCl [Zantac] 150 mg PO BID 04/18/15 [History] Folic Acid 1 mg PO DAILY 10/10/16 [History] Lovastatin [Mevacor] 20 mg PO HS 10/10/16 [History] Albuterol Neb [Proventil Neb] 2.5 mg IH TID PRN 01/07/17 [History] Cyanocobalamin (Vitamin B-12) [Vitamin B12] 1,000 mcg PO Q48H 01/07/17 [History] Diltiazem SR (12hr) [Cardizem SR] 60 mg PO DAILY 01/07/17 [History] Loratadine [Claritin] 10 mg PO DAILY PRN 01/07/17 [History] LORazepam [Ativan] 0.5 mg PO HS #0 01/08/17 [Rx] Warfarin [Coumadin] 4 mg PO DAILY 03/01/17 [History] 3 Allergy/AdvReac Type Severity Reaction Status Date / Time BRANDON Inhibitors AdvReac Cough Verified 04/07/18 11:02 Penicillins AdvReac Rash Verified 04/07/18 11:02 All Systems Review: The remainder of the systems were reviewed and are negative - Cardiovascular Cardiovascular: as per HPI, dyspnea at rest, dyspnea on exertion, irregular heart rhythm, lightheadedness, palpitations - Neurological Neurological: dizziness Physical Examination Vital Signs, Last 4 Hours Temp Pulse Resp BP Pulse Ox 04/24/18 06:38 97.9 F 77 16 123/81 94 Vital Signs Temp Pulse Resp BP Pulse Ox 04/24/18 06:38 97.9 F 77 16 123/81 94 04/24/18 03:17 97.6 F 73 16 123/85 96 04/23/18 23:11 97.9 F 77 16 118/67 93 04/23/18 18:13 98.3 F 78 16 130/83 94 04/23/18 16:23 97.5 F L 88 16 151/85 95 04/23/18 15:15 16 124/85 04/23/18 13:53 58 16 131/70 97 04/23/18 12:53 55 16 124/66 97 04/23/18 12:38 97.8 F 64 16 126/83 94 Intake and Output 04/23/18 04/24/18 04/24/18 23:59 07:59 15:59 Other: Weight 70.307 kg 70.1 kg Patient Weight 04/24/18 23:59 Weight 70.1 kg General: Conversant, No Apparent Distress HEENT: Atraumatic, Normocephaly, Mucus Membranes Moist Neck: No JVD, Normal carotid pulses Cardiac: Other (irregularly irregular) Lungs: Normal Breath Sounds, No Wheeze, Rales, Rhonchi Neuro: Alert and responsive, No focal deficits noted Abdomen: Soft, Non-Tender Skin: No rashes noted on visualized skin Musculoskeletal: No Chest Wall Tenderness Extremities: No Clubbing, No Cyanosis, No Edema, Normal Pulses Results 04/24/18 06:18 04/24/18 06:18 Lab Results 04/24/18 04/24/18 04/24/18 06:18 06:18 06:18 WBC 3.7 L Hgb 12.8 Hct 39.4 Plt Count 133 L INR 2.4 Sodium 144 Potassium 3.7 Chloride 109 H Carbon Dioxide 26 BUN 12 Creatinine 0.81 Glucose 97 Calcium 9.1 Magnesium 2.0 Short CBC 04/24/18 04/23/18 Range/Units 06:18 13:09 WBC 3.7 L 5.7 (4.3-11.1) K/mcL Hgb 12.8 13.1 (11.5-15.4) g/dL Hct 39.4 41.1 (35.3-44.9) % Plt Count 133 L 187 (140-400) K/mcL Neutrophils # 1.8 3.4 (1.6-8.9) K/mcL BMP 04/24/18 04/23/18 Range/Units 06:18 13:09 Sodium 144 140 (136-145) mEq/L Potassium 3.7 4.4 (3.5-5.1) mEq/L Chloride 109 H 107 (98-107) mEq/L Carbon Dioxide 26 23 (23-29) mEq/L BUN 12 11 (8-23) mg/dL Creatinine 0.81 1.14 (0.60-1.20) mg/dL Glucose 97 111 H (70-105) mg/dL Calcium 9.1 9.8 (8.6-10.3) mg/dL Cardiac Enzymes 04/23/18 Range/Units 13:09 Troponin I < 0.03 (< 0.04) ng/mL Impressions Chest X-Ray 04/23/18 12:42 IMPRESSION: No acute cardiopulmonary process. D/ / Yelena Burk MD / Yelena Burk MD Interpreting Provider: Yelena Burk MD Active Medications Acetaminophen (Tylenol) 650 mg PO Q6HR PRN PRN Reason: Pain Stop: 10/23/18 17:19 Last Admin: 04/23/18 19:52 Dose: 650 mg Albuterol Sulfate (Proventil Neb) 2.5 mg IH TID PRN; Protocol PRN Reason: Dyspnea Stop: 10/23/18 15:01 Famotidine (Pepcid) 10 mg PO BID MADDIE Stop: 10/23/18 21:01 Last Admin: 04/24/18 07:55 Dose: 10 mg Folic Acid (Folic Acid) 1 mg PO DAILY MADDIE Stop: 10/24/18 09:01 Last Admin: 04/24/18 07:55 Dose: 1 mg Loratadine (Claritin) 10 mg PO DAILY PRN; Protocol PRN Reason: Allergy Symptoms Stop: 10/23/18 15:01 Lorazepam (Ativan) 0.5 mg PO HS MADDIE Stop: 10/23/18 21:01 Last Admin: 04/23/18 21:22 Dose: 0.5 mg Naloxone HCl (Narcan) 0.4 mg IVP Q2MIN PRN PRN Reason: SEE COMMENTS Stop: 10/23/18 15:02 Warfarin Sodium (Coumadin Perpt) 1 each PO DAILY@1800 PRN PRN Reason: SEE COMMENTS Stop: 10/23/18 18:01 Warfarin Sodium (Coumadin) 4 mg PO 1800 MADDIE Stop: 10/24/18 18:01 - Imaging and Cardiology Echo: report reviewed Cardiac cath: report reviewed - EKG Interpretation EKG results cardiology: personally reviewed (A-Fib rate 51), other (12 hr tele AVG HR 87, A-Fib) Consult Discharge Plan - Plan Referrals: Noemí Blount MD [Primary Care Provider] -
[2018-04-24] MEDS ORDERED: *HR* Metoprolol 5 MG/5 ML VIAL IVP ONE ×2 (12:24→20:00)
--- NOTE | 2018-04-24 13:23 | Internal Med Progress Note ---
<Ijeoma Olivas - Last Filed: 04/24/18 14:25> Hospitalist Progress Note - Encounter Date of Encounter: 04/24/18 Time of Encounter: 09:00 - Subjective Interval History: Hospital day 1, Miss Gee states that she is no longer feeling lightheaded or weak. She admits to intermittent palpitations that last for several seconds at a time this morning. She also states that her shortness of breath is still increased from baseline and is present at rest and exertion. She denies any fever, chills nausea, vomiting, chest pain, abdominal pain, diarrhea, constipation, dysuria or frequency. - Exam Vitals: Temp Pulse Resp BP Pulse Ox 97.5 F L 66 16 104/69 93 04/24/18 11:31 04/24/18 11:31 04/24/18 11:31 04/24/18 11:31 04/24/18 11:31 Exam: General: Resting comfortably, in no acute distress, AAOx3, pleasant HEENT: Normocephalic, atraumatic, EOMI, PERRL, mucus membranes moist. Neck soft , supple, trachea midline, no cervical lymphadenopathy. Cardio: irregular rhythm, regular rate, no murmurs, rubs or gallops. Normal S1 , S2. No carotid bruits. Pulmonary: No wheezes, rales or rhonchi. No accessory respiratory muscle use. Abdomen: Soft, non tender, non distended, normal bowel sounds, no guarding, rebound or rigidity. Extremities: Radial and dorsal pedis pulses 2+, irregular and symmetrical, normal capillary refill, no clubbing. No peripheral edema or calf tenderness. Neuro: CN 2-12 intact, no focal deficits. Psych: Normal mood and affect, answers questions appropriately - Assessment and Plan (1) PAF (paroxysmal atrial fibrillation) Current Visit: Yes Status: Acute Assessment and Plan: History of paroxysmal atrial fibrillation Home medications are warfarin, metoprolol and diltiazem Presented with bradycardia, HR in 40's, increased shortness of breath and lightheadedness Currently, metoprolol and diltiazem being held due to symptomatic bradycardia Intermittent palpitations are occurring this morning, HR ranging from 80's - 130 's Cardiology was consulted, were notified by nursing about tachycardic episodes. They recommend continuing to monitor, continuing to hold medications and an EP consultation tomorrow. Continue warfarin dosing, INR is currently 2.4 Continue to monitor (2) Bradycardia, drug induced Current Visit: Yes Status: Acute Assessment and Plan: Improved Presented with palpitations, presyncope, HR in 40's Most likely due to home regimen of diltiazem and metoprolol for control of atrial fibrillation Diltiazem and metoprolol held, improvement in HR occurred Currently having intermittent palpitations with reflex tachycardia, ranging from 80-130 BPM Continue to monitor (3) Hypertension Current Visit: Yes Status: Chronic Assessment and Plan: Stable, chronic Currently 104/69 Continue to monitor (4) Dyspnea Current Visit: Yes Status: Acute Assessment and Plan: History of dyspnea when in atrial fibrillation Increased from baseline SpO2 93% room air Continue albuterol (5) CAD (coronary artery disease) Current Visit: No Status: Chronic Assessment and Plan: Chronic, stable continue home meds warfarin and lovastatin. DVT Prophylaxis: currently on warfarin for anticoagulation - Time Spent with Patient Total time spent is greater than 50% in coordination of care (as documented) at patient's floor/unit and/or counseling patient: Internal Medicine: Result - Labs CBC & Chem 7: 04/24/18 06:18 04/24/18 06:18 Labs: Short CBC 04/24/18 Range/Units 06:18 WBC 3.7 L (4.3-11.1) K/mcL Hgb 12.8 (11.5-15.4) g/dL Hct 39.4 (35.3-44.9) % Plt Count 133 L (140-400) K/mcL Neutrophils # 1.8 (1.6-8.9) K/mcL BMP 04/24/18 06:18 Sodium 144 Potassium 3.7 Chloride 109 H Carbon Dioxide 26 BUN 12 Creatinine 0.81 Glucose 97 Calcium 9.1 - ABG Interpretation ABG results: PT/INR, D-dimer PT 26.6 Seconds (9.4-12.1) H 04/24/18 06:18 Consult Discharge Plan - Plan Referrals: Noemí Blount MD [Primary Care Provider] - <Jordan Powell - Last Filed: 04/24/18 16:21> Hospitalist Progress Note - Encounter Date of Encounter: 04/24/18 - Exam Vitals: Temp Pulse Resp BP Pulse Ox 98 F 97 16 133/92 94 04/24/18 15:28 04/24/18 15:28 04/24/18 15:28 04/24/18 15:28 04/24/18 15:28 - Assessment and Plan (1) Bradycardia, drug induced Current Visit: Yes Status: Acute (2) Atrial fibrillation Current Visit: No Status: Chronic Assessment and Plan: One dose of 2.5 mg IV Lopressor given. Heart rate decreased some. K given to try to get over 4. Mag 2. (3) Dizziness Current Visit: Yes Status: Acute (4) CAD (coronary artery disease) Current Visit: No Status: Chronic (5) Hypertension Current Visit: Yes Status: Chronic - Time Spent with Patient Total time spent is greater than 50% in coordination of care (as documented) at patient's floor/unit and/or counseling patient: Internal Medicine: Result - Labs CBC & Chem 7: 04/24/18 06:18 04/24/18 06:18 Labs: Short CBC 04/24/18 Range/Units 06:18 WBC 3.7 L (4.3-11.1) K/mcL Hgb 12.8 (11.5-15.4) g/dL Hct 39.4 (35.3-44.9) % Plt Count 133 L (140-400) K/mcL Neutrophils # 1.8 (1.6-8.9) K/mcL BMP 04/24/18 06:18 Sodium 144 Potassium 3.7 Chloride 109 H Carbon Dioxide 26 BUN 12 Creatinine 0.81 Glucose 97 Calcium 9.1 - ABG Interpretation ABG results: PT/INR, D-dimer PT 26.6 Seconds (9.4-12.1) H 04/24/18 06:18 - Attending Attestation I examined this patient and my medical decision-making was reviewed with the Resident Physician on 04/24/18. I agree with the documented findings, disposition and treatment plan as described except to the extent set forth below. Ms Gee is currently admitted for bradycardia (a fib with slow VR). She remains moderate to high risk due to potential for worsening clinical status. Ms Gee is resting comfortably at this time. She is having a lot of palpitations. Heart rate up and down. No CP or SOB. Waiting to see EP tomorrow to discuss options. No GI issues. No fever or chills. Eating OK. <Ijeoma Olivas - Last Filed: 04/24/18 14:25> (3) Hypertension Qualifiers: Hypertension type: essential hypertension Qualified Code(s): I10 - Essential (primary) hypertension (5) CAD (coronary artery disease) Qualifiers: Coronary Disease-Associated Artery/Lesion type: [place] artery [place] vs. transplanted heart: [place] heart Associated angina: without angina Qualified Code(s): I25.10 - Atherosclerotic heart disease of [place] coronary artery without angina pectoris <Jordan Powell - Last Filed: 04/24/18 16:21> (2) Atrial fibrillation Qualifiers: Atrial fibrillation type: chronic Qualified Code(s): I48.2 - Chronic atrial fibrillation (4) CAD (coronary artery disease) Qualifiers: Coronary Disease-Associated Artery/Lesion type: [place] artery [place] vs. transplanted heart: [place] heart Associated angina: without angina Qualified Code(s): I25.10 - Atherosclerotic heart disease of [place] coronary artery without angina pectoris (5) Hypertension Qualifiers: Hypertension type: essential hypertension Qualified Code(s): I10 - Essential (primary) hypertension
[2018-04-24] MEDS ORDERED: *HR* Warfarin 4 MG TABLET PO SCH (18:00)
[2018-04-24 20:54] LABS: Magnesium 1.9 mg/dL (1.6-2.6); Potassium 3.1 mEq/L (3.5-5.1)
[2018-04-24] MEDS: *HR* LORazepam 0.5 MG TABLET PO SCH (22:11)
[2018-04-25 00:39] LABS: Basophils % 0.5 %; Eosinophils # 0.2 K/mcL (0.0-0.6); Eosinophils % 4.7 %; Hematocrit 37.5 % (35.3-44.9); Hemoglobin 12.3 g/dL (11.5-15.4); Lymphocytes # 1.2 K/mcL (0.6-4.6); Lymphocytes % 30.3 %; Mean Corpuscular HGB Conc 32.8 g/dL (31.6-35.5); Mean Corpuscular Hemoglobin 30.1 pg (28.0-33.3); Mean Corpuscular Volume 91.9 fL (83.0-100.0); Mean Platelet Volume 12.6 fL (9.4-12.4); Monocytes # 0.5 K/mcL (0.0-1.3); Monocytes % 11.9 %; Platelet Count 140 K/mcL (140-400); Red Blood Count 4.08 M/mcL (3.82-4.97); Red Cell Distribution Width 14.3 % (11.5-14.5); Segmented Neutrophils % 52.6 %
[2018-04-25 00:46] LABS: INR 2.7; Prothrombin Time 30.7 Seconds (9.4-12.1)
[2018-04-25 00:58] LABS: BUN/Creatinine Ratio 11 (6-26); Blood Urea Nitrogen 9 mg/dL (8-23); Carbon Dioxide 24 mEq/L (23-29); Chloride 109 mEq/L (98-107); Glucose 113 mg/dL (70-105); Osmolality,Calculated 291 (280-300); Potassium 3.3 mEq/L (3.5-5.1); Sodium 141 mEq/L (136-145); eGFR For Non-African Americans > 60 (> 60)
[2018-04-25] MEDS ORDERED: Nitroglycerin 0.4 MG TAB.SUBL SL PRN (04:36)
[2018-04-25] MEDS ORDERED: *HR* Metoprolol 5 MG/5 ML VIAL IVP ONE (04:36)
--- NOTE | 2018-04-25 07:58 | Electrocardiograph Report ---
[address] [address] Test Date: 2018-04-24 Pat Name: Cheli Gee Department: 113 Room: 3B12 Gender: F Management Advisor: : 1940 Requested By: Joanne Dietz Order Number: [id number] Reading MD: Ulices Keith Measurements Intervals [place] Rate: 112 P: HI: 0 QRS: -10 QRSD: 103 T: -11 QT: 332 QTc: 398 Interpretive Statements ATRIAL FIB/FLUTTER WITH RAPID VENTRICULAR RESPONSE WITH ABERRANT CONDUCTION OR VENTRICULAR PREMATURE COMPLEXES LEFT VENTRICULAR HYPERTROPHY AND ST-T CHANGE Electronically Signed On 04-25-2018 7:56:42 EDT by Ulices Keith
--- NOTE | 2018-04-25 08:00 | Electrocardiograph Report ---
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
[2018-04-25] MEDS: Folic Acid 1 MG TABLET PO SCH (08:12)
[2018-04-25] MEDS: Famotidine 20 MG TABLET PO SCH ×2 (08:12→21:17)
--- NOTE | 2018-04-25 10:16 | Electrophysiology Consult Note ---
<Michale Will - Last Filed: 04/25/18 11:59> Date of Encounter: 04/25/18 Time of Encounter: 10:15 Assessment and Plan (1) PAF (paroxysmal atrial fibrillation) Current Visit: Yes Status: Acute Known PAF, presents with afib with slow ventricular response. EKG shows atrial fibrillation HR 51 BPM. QT/QTC 432/408, QRS 97. Appears to be very symptomatic with afib. Reports chest discomfort overnight. Noted to have atrial fibrillation with RVR. Lopressor and cardizem held on admission due to low heart rates. Pt has had multiple ED visits in the past year for symptomatic A-Fib episodes. Recent cardiac testing reviewed: TTE 03/04/18: LVEF 60%. Asymmetric basal septal hypertrophy. No LVOT obstruction. Normal right ventricular structure and function. Severely dilated left atrium. Chordal AKSHAT is present. No LVOT obstruction. Moderate mitral regurgitation. No pulmonary hypertension. The IVC is dilated. [facility] 2016- minimal CAD. Potassium 3.3. Replacement given. TSH 2.37 Discussed Starting anti-arrhythmic for better rhythm control. Anticoagulated on Coumadin, INR 2.7. INR in range for past month. I discussed with Dr. Tyron Silveira. Sotalol 80 mg BID recommended. Will give first dose now. Monitor QTc for first 5 doses. Discussion w patient/family: The assessment and plan as outlined above was discussed with the patient and/or family members who expressed understanding and agreement. All questions were answered. Thank you for involving us in the care of your patient. Please call with any questions. History of Present Illness Consult date: 04/25/18 Requesting physician: Chandana Kumar Consult reason: Symptomatic recurrent PAF Chief complaint: Palpitations, chest discomfort History of present illness: Ms. 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 She was found to be in atrial fibrillation with slow ventricular response with HR 40's per ED report. AV magaly blockers were held. Due to multiple hospital admissions with symptomatic afib electrophysiology (EP) was consulted for evaluation and recommendation. She c/o intermittent non-radiating chest discomfort. Also c/o intermittent dizziness and lightheadedness. Recent cardiac testing: TTE 03/04/18: LVEF 60%. Asymmetric basal septal hypertrophy. No LVOT obstruction. Normal right ventricular structure and function. Severely dilated left atrium. Chordal AKSHAT is present. No LVOT obstruction. Moderate mitral regurgitation. No pulmonary hypertension. The IVC is dilated. Holter monitor 03/15/18: Baseline rhythm normal sinus. Occasional PVCs. Occasional PACs. Several short runs PAT. [facility] 02/14/2016: LM normal. LAD proximal 15% stenosis. Cx nl. Ramus 15% stenosis. RCA, RPDA normal. [facility] 01/17/2016: LVEF 60%. Normal LV, RV size function. Small PFO. Chordal AKSHAT into the LVOT, no obstruction. Mild to moderate MR. Past Med Surg Social Fam HX - Past Medical History Medical history: atrial fibrillation, hypertension Additional medical history: lymphoma, lymph nodes removed R sided Psychiatric history: anxiety, depression - Past Surgical History Surgical History: appendectomy, cancer surgery, cataract, cholecystectomy, hysterectomy, NELLA/BSO, other Additional surgical history: lymph node removed - Social History Smoking Status: Never smoker Smokeless Tobacco Status: No Alcohol use: none Drug use: none - Family History Mother Adopted: No Family Member Ethnicity: Non- Living Status: Age at : 80 Hx Family Cardiac Disorders: Yes (stroke) Hx Family Respiratory Disorders: No Hx Family Cancer: No Hx Family GI Disorders: No Hx Family Endocrine Disorder: No Hx Family Neuromuscular Disorders: No Hx Family Neurologic Disorders: Yes (CVA) Hx Family HEENT Disorders: No Hx Family Autoimmune Disorders: No Father Age: 80 Living Status: Hx Family Cancer: Yes (COLON) Hx Family Neurologic Disorders: Yes (alzheimer's) Sister Living Status: Hx Family Cardiac Disorders: Yes (IA in 80s) Hx Family Cancer: Yes (Colon) Brother Living Status: Hx Family Cardiac Disorders: Yes (IA in 80s) Hx Family Cancer: Yes (Pancreatic) Medications and Allergies Metoprolol Tartrate [Lopressor] 100 mg PO BID 04/18/15 [History] Ranitidine HCl [Zantac] 150 mg PO BID 04/18/15 [History] Folic Acid 1 mg PO DAILY 10/10/16 [History] Lovastatin [Mevacor] 20 mg PO HS 10/10/16 [History] Albuterol Neb [Proventil Neb] 2.5 mg IH TID PRN 01/07/17 [History] Cyanocobalamin (Vitamin B-12) [Vitamin B12] 1,000 mcg PO Q48H 01/07/17 [History] Diltiazem SR (12hr) [Cardizem SR] 60 mg PO DAILY 01/07/17 [History] Loratadine [Claritin] 10 mg PO DAILY PRN 01/07/17 [History] LORazepam [Ativan] 0.5 mg PO HS #0 01/08/17 [Rx] Warfarin [Coumadin] 4 mg PO DAILY 03/01/17 [History] 3 Allergy/AdvReac Type Severity Reaction Status Date / Time BRANDON Inhibitors AdvReac Cough Verified 04/07/18 11:02 Penicillins AdvReac Rash Verified 04/07/18 11:02 All Systems Review: The remainder of the systems were reviewed and are negative Physical Examination Vital Signs, Last 4 Hours Temp Pulse Resp BP Pulse Ox 04/25/18 08:00 97 04/25/18 07:17 97.5 F L 106 15 141/76 97 General: Conversant, No Apparent Distress HEENT: Atraumatic, Normocephaly, Mucus Membranes Moist Neck: No JVD, Normal carotid pulses Cardiac: Other (Irregularly irregular. ) Lungs: Normal Breath Sounds, No Wheeze, Rales, Rhonchi Neuro: Alert and responsive, No focal deficits noted Abdomen: Soft, Non-Tender Skin: No rashes noted on visualized skin Musculoskeletal: No Chest Wall Tenderness Extremities: No Clubbing, No Cyanosis, No Edema, Normal Pulses Results 04/25/18 00:17 04/25/18 00:17 Lab Results 04/24/18 04/25/18 04/25/18 19:50 00:17 00:17 WBC 3.9 L Hgb 12.3 Hct 37.5 Plt Count 140 INR 2.7 Sodium Potassium 3.1 L Chloride Carbon Dioxide BUN Creatinine Glucose Calcium Magnesium 1.9 Troponin I 04/25/18 04/25/18 04/25/18 00:17 00:17 04:15 WBC Hgb Hct Plt Count INR Sodium 141 Potassium 3.3 L Chloride 109 H Carbon Dioxide 24 BUN 9 Creatinine 0.85 Glucose 113 H Calcium 9.0 Magnesium Troponin I < 0.03 < 0.03 - Imaging and Cardiology Echo: report reviewed Cardiac cath: report reviewed - EKG Interpretation EKG results cardiology: personally reviewed Consult Discharge Plan - Plan Referrals: Noemí Blount MD [Primary Care Provider] - 05/05/18 7:00 pm <Tyron Silveira - Last Filed: 04/26/18 15:57> Date of Encounter: 04/26/18 - Attending Attestation I have personally performed a face to face evaluation on this patient. I have reviewed and agree with the care plan. History and Exam by me shows: AF with mild tachy-doreen. Has not had an attempt at rhythm control. Will initiate sotalol. Assessment and Plan Discussion w patient/family: The assessment and plan as outlined above was discussed with the patient and/or family members who expressed understanding and agreement. All questions were answered. Thank you for involving us in the care of your patient. Please call with any questions. History of Present Illness History of present illness: Ms. Gee is a 77 year old female All Systems Review: The remainder of the systems were reviewed and are negative Results 04/26/18 03:39 04/26/18 03:39 Lab Results 04/26/18 04/26/18 04/26/18 03:39 03:39 03:39 WBC 3.5 L Hgb 11.2 L Hct 33.8 L Plt Count 128 L INR 3.1 Sodium 141 Potassium 3.8 Chloride 109 H Carbon Dioxide 26 BUN 13 Creatinine 0.95 Glucose 97 Calcium 9.2
--- NOTE | 2018-04-25 12:42 | Electrocardiograph Report ---
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
--- NOTE | 2018-04-25 16:11 | Electrocardiograph Report ---
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
--- NOTE | 2018-04-25 17:50 | Internal Med Progress Note ---
<Ijeoma Olivas - Last Filed: 04/25/18 18:05> Hospitalist Progress Note - Encounter Date of Encounter: 04/25/18 Time of Encounter: 11:00 - Subjective Interval History: Hospital day 2, Miss Gee states that she had several episodes of palpitations, rapid heart rate and chest pain overnight. Multiple EKGs were done, she was given metoprolol 2.5 mg prn and one dose of sublingual nitro. She currently states that she is still having intermittent chest pain that lasts a moment or two, described as aching, without radiation and feeling increased heart rate. She said the episodes this morning are not as severe as last night and she declines another dose of nitroglycerin at this time. She states that her shortness of breath is decreased from yesterday. She admits to headache since dose of nitro. She denies lightheadedness, nasuea, vomiting, fever, chills, weakness, abdominal pain, calf pain, frequency, dysuria, diarrhea or constipation. - Exam Vitals: Temp Pulse Resp BP Pulse Ox 97.4 F L 93 18 129/94 96 04/25/18 16:28 04/25/18 16:28 04/25/18 16:28 04/25/18 16:28 04/25/18 16:28 Exam: General: Resting comfortably, in no acute distress, AAOx3, pleasant HEENT: Normocephalic, atraumatic, EOMI, PERRL, mucus membranes moist. Neck soft , supple, trachea midline, no cervical lymphadenopathy. Cardio: Irregular rhythm, tachycardic. No murmurs, rubs or gallops. Normal S1 , S2. No carotid bruits. Pulmonary: No wheezes, rales or rhonchi. No accessory respiratory muscle use. Abdomen: Soft, non tender, non distended, normal bowel sounds, no guarding, rebound or rigidity. No CVA or suprapubic tenderness. Extremities: Radial and dorsal pedis pulses 2+ and irregular, normal capillary refill, no clubbing. No peripheral edema or calf tenderness. Neuro: CN 2-12 intact, no focal deficits. Psych: Normal mood and affect, answers questions appropriately - Assessment and Plan (1) PAF (paroxysmal atrial fibrillation) Current Visit: Yes Status: Acute Assessment and Plan: History of paroxysmal atrial fibrillation Occasional palpitations and chest pain occuring, decreased in severity since last night Metoprolol 2.5 mg and SL nitro as needed EKGs overnight showed atrial fibrillation with RVR and occasional PVC's Troponins negative x2 overnight Diltiazem and home dose metoprolol still held Continue telemetry EP recs: they will start sotalol 80 mg, monitor for prolonged QT for first 5 doses as well as remaining on coumadin for anticoagulation Will continue to monitor HR closely (2) Bradycardia, drug induced Current Visit: Yes Status: Acute Assessment and Plan: Improved Presented with palpitations, presyncope, HR in 40's Diltiazem and metoprolol held, improvement in HR occurred EP starting sotalol Continue telemetry Will continue to monitor (3) Hypertension Current Visit: Yes Status: Chronic Assessment and Plan: Chronic, stable currently at 129/94 continue to monitor (4) Dyspnea Current Visit: Yes Status: Acute Assessment and Plan: Improving, currently 96% on room air History of dyspnea when in atrial fibrillation States shortness of breath is decreasing Proventil as needed (5) CAD (coronary artery disease) Current Visit: No Status: Chronic Assessment and Plan: Chronic, stable, continue home meds warfarin, lovastatin DVT Prophylaxis: On coumadin for anticoagulation - Time Spent with Patient Total time spent is greater than 50% in coordination of care (as documented) at patient's floor/unit and/or counseling patient: Internal Medicine: Result - Labs CBC & Chem 7: 04/25/18 00:17 04/25/18 00:17 Labs: Short CBC 04/25/18 Range/Units 00:17 WBC 3.9 L (4.3-11.1) K/mcL Hgb 12.3 (11.5-15.4) g/dL Hct 37.5 (35.3-44.9) % Plt Count 140 (140-400) K/mcL Neutrophils # 2.0 (1.6-8.9) K/mcL BMP 04/24/18 04/25/18 19:50 00:17 Sodium 141 Potassium 3.1 L 3.3 L Chloride 109 H Carbon Dioxide 24 BUN 9 Creatinine 0.85 Glucose 113 H Calcium 9.0 Cardiac Enzymes 04/25/18 04/25/18 Range/Units 00:17 04:15 Troponin I < 0.03 < 0.03 (< 0.04) ng/mL - ABG Interpretation ABG results: PT/INR, D-dimer PT 30.7 Seconds (9.4-12.1) H 04/25/18 00:17 - VTE Reasons for not Prescribing Prophylaxis: Not indicated-Anticoagulated or INR therapeutic Consult Discharge Plan - Plan Referrals: Noemí Blount MD [Primary Care Provider] - <AndreJordan A - Last Filed: 04/25/18 18:49> Hospitalist Progress Note - Encounter Date of Encounter: 04/25/18 - Exam Vitals: Temp Pulse Resp BP Pulse Ox 97.2 F L 84 16 140/84 95 04/25/18 18:42 04/25/18 18:42 04/25/18 18:42 04/25/18 18:42 04/25/18 18:42 - Assessment and Plan (1) Bradycardia, drug induced Current Visit: Yes Status: Resolved (2) Atrial fibrillation Current Visit: No Status: Chronic (3) Dizziness Current Visit: Yes Status: Acute (4) CAD (coronary artery disease) Current Visit: No Status: Chronic (5) Hypertension Current Visit: Yes Status: Chronic - Time Spent with Patient Total time spent is greater than 50% in coordination of care (as documented) at patient's floor/unit and/or counseling patient: Internal Medicine: Result - Labs CBC & Chem 7: 04/25/18 00:17 04/25/18 00:17 Labs: Short CBC 04/25/18 Range/Units 00:17 WBC 3.9 L (4.3-11.1) K/mcL Hgb 12.3 (11.5-15.4) g/dL Hct 37.5 (35.3-44.9) % Plt Count 140 (140-400) K/mcL Neutrophils # 2.0 (1.6-8.9) K/mcL BMP 04/24/18 04/25/18 19:50 00:17 Sodium 141 Potassium 3.1 L 3.3 L Chloride 109 H Carbon Dioxide 24 BUN 9 Creatinine 0.85 Glucose 113 H Calcium 9.0 Cardiac Enzymes 04/25/18 04/25/18 Range/Units 00:17 04:15 Troponin I < 0.03 < 0.03 (< 0.04) ng/mL - ABG Interpretation ABG results: PT/INR, D-dimer PT 30.7 Seconds (9.4-12.1) H 04/25/18 00:17 - Attending Attestation I examined this patient and my medical decision-making was reviewed with the Resident Physician on 04/25/18. I agree with the documented findings, disposition and treatment plan as described except to the extent set forth below. Ms Gee is currently admitted for bradycardia and atrial fibrillation. She is to start Sotalol today. She remains moderate to high risk due to potential for worsening clinical status. Ms Gee feels a little better. She had a lot of chest discomfort and palpitations last night. Started Sotalol today. No fever or chills. No GI issues. Exam alert Comfortable Mucus membranes dry Heart irreg and slightly tachy Lungs clear Abd soft No edema I/P 1. A fib - starting Sotalol 2. Bradycardia resolved Further diagnoses and plan as above. <Ijeoma Olivas - Last Filed: 04/25/18 18:05> (3) Hypertension Qualifiers: Hypertension type: essential hypertension Qualified Code(s): I10 - Essential (primary) hypertension (5) CAD (coronary artery disease) Qualifiers: Coronary Disease-Associated Artery/Lesion type: [place] artery [place] vs. transplanted heart: [place] heart Associated angina: without angina Qualified Code(s): I25.10 - Atherosclerotic heart disease of [place] coronary artery without angina pectoris <Jordan Powell - Last Filed: 04/25/18 18:49> (2) Atrial fibrillation Qualifiers: Atrial fibrillation type: chronic Qualified Code(s): I48.2 - Chronic atrial fibrillation (4) CAD (coronary artery disease) Qualifiers: Coronary Disease-Associated Artery/Lesion type: [place] artery [place] vs. transplanted heart: [place] heart Associated angina: without angina Qualified Code(s): I25.10 - Atherosclerotic heart disease of [place] coronary artery without angina pectoris (5) Hypertension Qualifiers: Hypertension type: essential hypertension Qualified Code(s): I10 - Essential (primary) hypertension
[2018-04-25] MEDS ORDERED: *HR* Warfarin 2 MG TABLET PO ONE (18:00)
[2018-04-25] MEDS: *HR* LORazepam 0.5 MG TABLET PO SCH (21:18)
[2018-04-25] MEDS ORDERED: GI Cocktail 40 ML EACH PO ONE (22:46)
[2018-04-26 04:29] LABS: Basophils % 0.6 %; Eosinophils # 0.2 K/mcL (0.0-0.6); Eosinophils % 4.9 %; Hematocrit 33.8 % (35.3-44.9); Hemoglobin 11.2 g/dL (11.5-15.4); Lymphocytes # 1.1 K/mcL (0.6-4.6); Mean Corpuscular HGB Conc 33.1 g/dL (31.6-35.5); Mean Corpuscular Hemoglobin 29.5 pg (28.0-33.3); Mean Corpuscular Volume 88.9 fL (83.0-100.0); Mean Platelet Volume 12.2 fL (9.4-12.4); Monocytes # 0.4 K/mcL (0.0-1.3); Monocytes % 12.5 %; Neutrophils # 1.7 K/mcL (1.6-8.9); Platelet Count 128 K/mcL (140-400); Red Cell Distribution Width 14.4 % (11.5-14.5)
[2018-04-26 04:34] LABS: INR 3.1; Prothrombin Time 34.6 Seconds (9.4-12.1)
[2018-04-26 04:46] LABS: BUN/Creatinine Ratio 14 (6-26); Blood Urea Nitrogen 13 mg/dL (8-23); Calcium 9.2 mg/dL (8.6-10.3); Carbon Dioxide 26 mEq/L (23-29); Chloride 109 mEq/L (98-107); Glucose 97 mg/dL (70-105); Osmolality,Calculated 292 (280-300); Potassium 3.8 mEq/L (3.5-5.1); Sodium 141 mEq/L (136-145); eGFR For Non-African Americans 57 (> 60)
[2018-04-26] MEDS: Folic Acid 1 MG TABLET PO SCH (09:15)
[2018-04-26] MEDS: Famotidine 20 MG TABLET PO SCH ×2 (09:15→22:20)
--- NOTE | 2018-04-26 12:54 | Internal Med Progress Note ---
<Ijeoma Olivas - Last Filed: 04/26/18 13:10> Hospitalist Progress Note - Encounter Date of Encounter: 04/26/18 Time of Encounter: 08:00 - Subjective Interval History: Hospital day 3, Miss Gee is resting comfortably, in no acute distress. She states that she experienced no palpitations, rapid heart rate or chest pain overnight. She states that her shortness of breath has decreased as well. She denies any lightheadedness, weakness, parathesias, fever, chills, nausea, vomiting, abdominal pain, diarrhea, constipation, dysuria, frequency, calf pain or change in appetite. She denies any new issues and all questions were answered. - Exam Vitals: Temp Pulse Resp BP Pulse Ox 97.5 F L 75 18 121/77 95 04/26/18 11:18 04/26/18 11:18 04/26/18 11:18 04/26/18 11:18 04/26/18 11:18 Exam: General: Resting comfortably, in no acute distress, AAOx3, pleasant HEENT: Normocephalic, atraumatic, EOMI, mucus membranes moist. Neck soft, supple, trachea midline, no cervical lymphadenopathy. Cardio: Regular rate, regular rhythm, no murmurs, rubs or gallops. Normal S1, S2. No carotid bruits. Pulmonary: No wheezes, rales or rhonchi. No accessory respiratory muscle use. Abdomen: Soft, non tender, non distended, normal bowel sounds, no guarding, rebound or rigidity. No CVA or suprapubic tenderness. Extremities: Radial and dorsal pedis pulses 2+ and symmetrical, regular rate and rhythm, normal capillary refill, no clubbing. No peripheral edema or calf tenderness. Neuro: CN 2-12 intact, no focal deficits. Psych: Normal mood and affect, answers questions appropriately - Assessment and Plan (1) PAF (paroxysmal atrial fibrillation) Current Visit: Yes Status: Acute Assessment and Plan: History of paroxysmal atrial fibrillation Rate more controlled today, NSR. Denies palpitations and chest pain Continue telemetry Sotalol 80 mg q12, 2 of 5 monitored doses given as of this morning Will remain on warfarin for anticoagulation, INR 3.1 today Will continue to monitor HR closely (2) Bradycardia, drug induced Current Visit: Yes Status: Resolved Assessment and Plan: Improved Presented with palpitations, presyncope, HR in 40's on admission Diltiazem and metoprolol held, improvement in HR occurred Have now started sotalol, heart rate WNL Continue to monitor (3) Hypertension Current Visit: Yes Status: Chronic Assessment and Plan: Chronic, currently stable at 123/74 Continue to monitor (4) Dyspnea Current Visit: Yes Status: Acute Assessment and Plan: Improved with control of HR Currently 95% on room air History of dyspnea while in atrial fibrillation Proventil PRN Supplemental O2 PRN (5) CAD (coronary artery disease) Current Visit: No Status: Chronic Assessment and Plan: Chronic, stable, continue home meds warfarin, lovastatin INR 3.1 today DVT Prophylaxis: On warfarin for atrial fibrillation - Time Spent with Patient Total time spent is greater than 50% in coordination of care (as documented) at patient's floor/unit and/or counseling patient: Internal Medicine: Result - Labs CBC & Chem 7: 04/26/18 03:39 04/26/18 03:39 Labs: Short CBC 04/26/18 Range/Units 03:39 WBC 3.5 L (4.3-11.1) K/mcL Hgb 11.2 L (11.5-15.4) g/dL Hct 33.8 L (35.3-44.9) % Plt Count 128 L (140-400) K/mcL Neutrophils # 1.7 (1.6-8.9) K/mcL BMP 04/26/18 03:39 Sodium 141 Potassium 3.8 Chloride 109 H Carbon Dioxide 26 BUN 13 Creatinine 0.95 Glucose 97 Calcium 9.2 - ABG Interpretation ABG results: PT/INR, D-dimer PT 34.6 Seconds (9.4-12.1) H 04/26/18 03:39 - VTE Reasons for not Prescribing Prophylaxis: Not indicated-Anticoagulated or INR therapeutic Consult Discharge Plan - Plan Referrals: Noemí Blount MD [Primary Care Provider] - 05/05/18 7:00 pm <Jordan Powell - Last Filed: 04/26/18 17:03> Hospitalist Progress Note - Encounter Date of Encounter: 04/26/18 - Exam Vitals: Temp Pulse Resp BP Pulse Ox 98.1 F 75 17 125/74 91 04/26/18 16:29 04/26/18 16:29 04/26/18 16:29 04/26/18 16:29 04/26/18 16:29 - Assessment and Plan (1) Bradycardia, drug induced Current Visit: Yes Status: Resolved (2) Atrial fibrillation Current Visit: No Status: Chronic (3) Dizziness Current Visit: Yes Status: Acute (4) CAD (coronary artery disease) Current Visit: No Status: Chronic (5) Hypertension Current Visit: Yes Status: Chronic - Time Spent with Patient Total time spent is greater than 50% in coordination of care (as documented) at patient's floor/unit and/or counseling patient: Internal Medicine: Result - Labs CBC & Chem 7: 04/26/18 03:39 04/26/18 03:39 Labs: Short CBC 04/26/18 Range/Units 03:39 WBC 3.5 L (4.3-11.1) K/mcL Hgb 11.2 L (11.5-15.4) g/dL Hct 33.8 L (35.3-44.9) % Plt Count 128 L (140-400) K/mcL Neutrophils # 1.7 (1.6-8.9) K/mcL BMP 04/26/18 03:39 Sodium 141 Potassium 3.8 Chloride 109 H Carbon Dioxide 26 BUN 13 Creatinine 0.95 Glucose 97 Calcium 9.2 - ABG Interpretation ABG results: PT/INR, D-dimer PT 34.6 Seconds (9.4-12.1) H 04/26/18 03:39 - Attending Attestation I examined this patient and my medical decision-making was reviewed with the Resident Physician on 04/26/18. I agree with the documented findings, disposition and treatment plan as described except to the extent set forth below. Ms Gee is currently admitted for bradycardia and issues with a fib. She remains moderate to high risk due to potential for worsening clinical status. She has been started on Sotalol. Ms Gee has converted to NSR. She feels much better. She has had 2 doses of Sotalol. No fever or chills. No dyspnea. Appetite OK. Exam Alert Comfortable Mucus membranes dry Heart reg Lungs clear Abd soft No edema I/P 1. Chronic a fib- now in NSR with Sotalol 2. Bradycardia Further diagnoses and plan as above. <Ijeoma Olivas - Last Filed: 04/26/18 13:10> (3) Hypertension Qualifiers: Hypertension type: essential hypertension Qualified Code(s): I10 - Essential (primary) hypertension (5) CAD (coronary artery disease) Qualifiers: Coronary Disease-Associated Artery/Lesion type: [place] artery [place] vs. transplanted heart: [place] heart Associated angina: without angina Qualified Code(s): I25.10 - Atherosclerotic heart disease of [place] coronary artery without angina pectoris <Jordan Powell - Last Filed: 04/26/18 17:03> (2) Atrial fibrillation Qualifiers: Atrial fibrillation type: chronic Qualified Code(s): I48.2 - Chronic atrial fibrillation (4) CAD (coronary artery disease) Qualifiers: Coronary Disease-Associated Artery/Lesion type: [place] artery [place] vs. transplanted heart: [place] heart Associated angina: without angina Qualified Code(s): I25.10 - Atherosclerotic heart disease of [place] coronary artery without angina pectoris (5) Hypertension Qualifiers: Hypertension type: essential hypertension Qualified Code(s): I10 - Essential (primary) hypertension
--- NOTE | 2018-04-26 14:04 | Cardiology Progress Note ---
Date of Encounter: 04/26/18 Time of Encounter: 14:00 Assessment and Plan (1) PAF (paroxysmal atrial fibrillation) Current Visit: Yes Status: Acute Known PAF, presents with afib with slow ventricular response. EKG shows atrial fibrillation HR 51 BPM. QT/QTC 432/408, QRS 97. Appears to be very symptomatic with afib. Lopressor and cardizem held on admission due to low heart rates in the 40's. Pt has had multiple ED visits in the past year for symptomatic A-Fib episodes. Recent cardiac testing reviewed: TTE 03/04/18: LVEF 60%. Asymmetric basal septal hypertrophy. No LVOT obstruction. Normal right ventricular structure and function. Severely dilated left atrium. Chordal AKSHAT is present. No LVOT obstruction. Moderate mitral regurgitation. No pulmonary hypertension. The IVC is dilated. [facility] 2016- minimal CAD. Potassium 3.3. Replacement given. TSH 2.37 EP consulted yesterday and sotalol therapy recommended. S/p three doses sotalol 80 mg BID. Converted to NSR. HR 70-80. EKG shows NSR. QT/QTc 437/461. She reports she is feeling well. She will receive 5th dose tomorrow afternoon. 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 (2) Myxomatous mitral valve regurgitation Current Visit: Yes Status: Acute TTE 03/04/18: Chordal AKSHAT is present. No LVOT obstruction. Moderate mitral regurgitation. Discussion w patient/family: The assessment and plan as outlined above was discussed with the patient and/or family members who expressed understanding and agreement. All questions were answered. Thank you for involving us in the care of your patient. Please call with any questions. Subjective Principal diagnosis: atrial fibrillation with slow response. Interval history: No new complaints. Denies palpitations. Converted to NSR. Objective Vital Signs, Last 4 Hours Temp Pulse Resp BP Pulse Ox 04/26/18 11:18 97.5 F L 75 18 121/77 95 General: Conversant, No Apparent Distress HEENT: Atraumatic, Normocephaly, Mucus Membranes Moist Neck: No JVD, Normal carotid pulses Cardiac: Reg Rate and Rhythm, Normal S1 and S2, No Murmur Lungs: Normal Breath Sounds, No Wheeze, Rales, Rhonchi Neuro: Alert and responsive, No focal deficits noted Abdomen: Soft, Non-Tender Skin: No rashes noted on visualized skin Musculoskeletal: No Chest Wall Tenderness Extremities: No Clubbing, No Cyanosis, No Edema, Normal Pulses Results 04/26/18 03:39 04/26/18 03:39 Lab Results 04/26/18 04/26/18 04/26/18 03:39 03:39 03:39 WBC 3.5 L Hgb 11.2 L Hct 33.8 L Plt Count 128 L INR 3.1 Sodium 141 Potassium 3.8 Chloride 109 H Carbon Dioxide 26 BUN 13 Creatinine 0.95 Glucose 97 Calcium 9.2 - Imaging and Cardiology Echo: report reviewed - EKG Interpretation EKG results cardiology: personally reviewed - VTE Reasons for not Prescribing Prophylaxis: Not indicated-Anticoagulated or INR therapeutic Consult Discharge Plan - Plan Referrals: Noemí Blount MD [Primary Care Provider] - 05/05/18 7:00 pm
[2018-04-26] MEDS: Acetaminophen 325 MG TABLET PO PRN (16:32)
--- NOTE | 2018-04-26 17:49 | Electrocardiograph Report ---
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
--- NOTE | 2018-04-26 17:55 | Electrocardiograph Report ---
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
[2018-04-26] MEDS ORDERED: *HR* Warfarin 2 MG TABLET PO ONE (18:00)
[2018-04-26] MEDS: *HR* LORazepam 0.5 MG TABLET PO SCH (22:20)
[2018-04-27 05:30] LABS: INR 2.8; Prothrombin Time 31.2 Seconds (9.4-12.1)
[2018-04-27 05:52] LABS: BUN/Creatinine Ratio 16 (6-26); Blood Urea Nitrogen 13 mg/dL (8-23); Calcium 8.8 mg/dL (8.6-10.3); Carbon Dioxide 25 mEq/L (23-29); Chloride 107 mEq/L (98-107); Glucose 86 mg/dL (70-105); Osmolality,Calculated 289 (280-300); Potassium 3.6 mEq/L (3.5-5.1); Sodium 140 mEq/L (136-145); eGFR For Non-African Americans > 60 (> 60)
[2018-04-27 06:33] VITALS: BP 148/67
--- NOTE | 2018-04-27 08:30 | Discharge Summary ---
- NOTES TO OUTPATIENT PROVIDER Notes to Outpatient Provider: Pt admitted for bradycardia related to Cardizem and Metoprolol. Meds held and she became tachycardic. She was started on Sotalol and converted to NSR with clinical improvement. Orders not resulted at time of discharge: Pending orders 04/26/18 13:00 EKG [ECG 12 lead ECG] [ECG] Routine 04/27/18 00:25 EKG [ECG 12 lead ECG] [ECG] Routine 04/27/18 06:00 EKG [ECG 12 lead ECG] [ECG] AM 0600 04/28/18 06:00 EKG [ECG 12 lead ECG] [ECG] AM 0600 Date of Encounter: 04/27/18 Time of Encounter: 08:27 - Discharge Diagnosis (1) Bradycardia, drug induced Priority: Primary Status: Resolved (2) Atrial fibrillation Priority: Secondary Status: Chronic Qualifiers: Atrial fibrillation type: chronic Qualified Code(s): I48.2 - Chronic atrial fibrillation (3) Dizziness Priority: Secondary Status: Resolved (4) CAD (coronary artery disease) Priority: Secondary Status: Chronic Qualifiers: Coronary Disease-Associated Artery/Lesion type: [place] artery [place] vs. transplanted heart: [place] heart Associated angina: without angina Qualified Code(s): I25.10 - Atherosclerotic heart disease of [place] coronary artery without angina pectoris (5) Hypertension Priority: Secondary Status: Chronic Qualifiers: Hypertension type: essential hypertension Qualified Code(s): I10 - Essential (primary) hypertension Hospital course: Ms. Gee is a 77 year old female with hx of chronic a fib and HTN. She presented to ED with fatigue and found to be bradycardic presumed due to cardiac meds. She was admitted for further evaluation and treatment. Ms Gee was admitted to [facility]. Her Cardizem and Metoprolol were stopped. She had some issues with rapid atrial fibrillation after stopping medications. She was evaluated by EP and started on Sotalol. She converted to NSR with improvement in her symptoms. She tolerated the medication and was kept for the first 5 doses. Today she is afebrile. She has no other issues. She is ready for discharge home. Discharge discussed with: patient, family, nurse - Time Spent with Patient Total time spent providing and/or coordinating discharge services: 40min - Discharge Medications Home Medications: Ranitidine HCl [Zantac] 150 mg PO BID 04/18/15 [History] Folic Acid 1 mg PO DAILY 10/10/16 [History] Lovastatin [Mevacor] 20 mg PO HS 10/10/16 [History] Albuterol Neb [Proventil Neb] 2.5 mg IH TID PRN 01/07/17 [History] Cyanocobalamin (Vitamin B-12) [Vitamin B12] 1,000 mcg PO Q48H 01/07/17 [History] Loratadine [Claritin] 10 mg PO DAILY PRN 01/07/17 [History] LORazepam [Ativan] 0.5 mg PO HS #0 01/08/17 [Rx] Warfarin [Coumadin] 4 mg PO DAILY 03/01/17 [History] Nitroglycerin 0.4 mg SL Q5MIN PRN tab.subl 04/27/18 [Rx] Sotalol [Betapace] 80 mg PO Q12H tablet 04/27/18 [Rx] Allergies/Adverse Reactions: 3 Allergy/AdvReac Type Severity Reaction Status Date / Time BRANDON Inhibitors AdvReac Cough Verified 04/07/18 11:02 Penicillins AdvReac Rash Verified 04/07/18 11:02 Date of admission: 04/24/18 16:49 Primary care physician: Noemí Blount Discharging clinician: Jordan Powell Anticipated date of discharge: 04/27/18 - Constitutional Vitals: Temp Pulse Resp BP Pulse Ox 97.7 F 64 18 148/67 94 04/27/18 06:32 04/27/18 06:32 04/27/18 06:32 04/27/18 06:32 04/27/18 06:32 General appearance: Present: A&O X 3, pleasant, answers questions appropriately - Head Head exam: Present: atraumatic, normocephalic - Eye Eye exam: Present: EOMI, conjuntiva pink - ENT ENT exam: Present: mucous membranes moist - Respiratory Respiratory exam: Present: CTAB. Absent: rales, rhonchi, wheezes - Cardiovascular Cardiovascular exam: Present: RRR. Absent: tachycardia - GI/Abdominal GI/Abdominal exam: Present: normal bowel sounds, soft. Absent: tenderness - Extremities Exam Extremities exam: Present: warm. Absent: tenderness - Back Exam Additional comments: Increased thoracic kyphosis - Neurological Exam Neurological exam: Present: alert, oriented X3, no focal deficits - Psychiatric Psychiatric exam: Present: normal affect, normal mood - Skin Skin exam: Present: dry, warm. Absent: rash - Patient Status Disposition: Home, Self-Care Condition: Good Functional capacity at discharge: independent ambulation Overall status at discharge: patient is progressing back to baseline - Discharge Instructions Follow Up With: Noemí Blount MD [Primary Care Provider] - 05/05/18 7:00 pm - Diet and Activity Activity: increase activity as tolerated Diet: advance to your usual diet - VTE Reasons for not Prescribing Prophylaxis: Not indicated-Anticoagulated or INR therapeutic
[2018-04-27] MEDS: Famotidine 20 MG TABLET PO SCH (09:52)
[2018-04-27] MEDS: Folic Acid 1 MG TABLET PO SCH (09:53)
--- NOTE | 2018-04-27 10:57 | Cardiology Progress Note ---
Date of Encounter: 04/27/18 Time of Encounter: 10:54 Assessment and Plan (1) PAF (paroxysmal atrial fibrillation) Current Visit: Yes Status: Acute Known PAF, presents with afib with slow ventricular response. EKG shows atrial fibrillation HR 51 BPM. QT/QTC 432/408, QRS 97. Appears to be very symptomatic with afib. Lopressor and cardizem held on admission due to low heart rates in the 40's. Pt has had multiple ED visits in the past year for symptomatic A-Fib episodes. Recent cardiac testing reviewed: TTE 03/04/18: LVEF 60%. Asymmetric basal septal hypertrophy. No LVOT obstruction. Normal right ventricular structure and function. Severely dilated left atrium. Chordal AKSHAT is present. No LVOT obstruction. Moderate mitral regurgitation. No pulmonary hypertension. The IVC is dilated. [facility] 2016- minimal CAD. Potassium 3.5. Will replace. TSH 2.37 EP consulted and sotalol therapy recommended. S/p 5 doses sotalol 80 mg BID. Converted to NSR. HR 70-80. EKG shows NSR. QT/QTc 447/450ms. She reports she is feeling well. 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 INR therapeutic. Okay to d/c home. Cardiology/EP signing off. Reconsult PRN. Will coordinate outpt follow-up. Will send Sotalol rx to pharmacy. (2) Atrial fibrillation with slow ventricular response Current Visit: Yes Status: Acute As above. Now SR on Sotalol. (3) Myxomatous mitral valve regurgitation Current Visit: Yes Status: Acute TTE 03/04/18: Chordal AKSHAT is present. No LVOT obstruction. Moderate mitral regurgitation. Discussion w patient/family: The assessment and plan as outlined above was discussed with the patient and/or family members who expressed understanding and agreement. All questions were answered. Thank you for involving us in the care of your patient. Please call with any questions. I will discuss all the above with Dr. Davis and Raoul and make changes as necessary. Subjective Principal diagnosis: atrial fibrillation with slow response. Interval history: Pt in SR. s/p 5 sotalol doses. QTc stable. No acute complaints this AM. Objective Vital Signs Temp Pulse Resp BP Pulse Ox 04/27/18 06:32 97.7 F 64 18 148/67 94 04/27/18 03:31 97.8 F 66 16 117/51 94 04/26/18 22:43 97.5 F L 78 16 161/88 97 04/26/18 19:20 98.0 F 70 16 131/80 92 04/26/18 16:29 98.1 F 75 17 125/74 91 04/26/18 11:18 97.5 F L 75 18 121/77 95 Intake and Output 04/26/18 04/27/18 04/27/18 23:59 07:59 15:59 Intake Total 360 / 360 Output Total 300 / 300 Balance -300 / -300 360 / 360 Intake: Oral 360 / 360 Output: Urine 300 / 300 Other: Meal Breakfast Percent of Meal Consumed 100% Weight 72.8 kg Patient Weight 04/27/18 23:59 Weight 72.8 kg General: Conversant, No Apparent Distress HEENT: Atraumatic, Normocephaly, Mucus Membranes Moist Neck: No JVD, Normal carotid pulses Cardiac: Reg Rate and Rhythm, Normal S1 and S2, No Murmur Lungs: Normal Breath Sounds, No Wheeze, Rales, Rhonchi Neuro: Alert and responsive, No focal deficits noted Abdomen: Soft, Non-Tender Skin: No rashes noted on visualized skin Musculoskeletal: No Chest Wall Tenderness Extremities: No Clubbing, No Cyanosis, No Edema, Normal Pulses Results 04/26/18 03:39 04/27/18 03:54 Lab Results Active Medications Acetaminophen (Tylenol) 650 mg PO Q6HR PRN PRN Reason: Pain Stop: 10/23/18 17:19 Last Admin: 04/26/18 16:32 Dose: 650 mg Albuterol Sulfate (Proventil Neb) 2.5 mg IH TID PRN; Protocol PRN Reason: Dyspnea Stop: 10/23/18 15:01 Famotidine (Pepcid) 10 mg PO BID MADDIE Stop: 10/23/18 21:01 Last Admin: 04/27/18 09:52 Dose: 10 mg Folic Acid (Folic Acid) 1 mg PO DAILY MADDIE Stop: 10/24/18 09:01 Last Admin: 04/27/18 09:53 Dose: 1 mg Loratadine (Claritin) 10 mg PO DAILY PRN; Protocol PRN Reason: Allergy Symptoms Stop: 10/23/18 15:01 Lorazepam (Ativan) 0.5 mg PO HS [facility] Stop: 10/23/18 21:01 Last Admin: 04/26/18 22:20 Dose: 0.5 mg Naloxone HCl (Narcan) 0.4 mg IVP Q2MIN PRN PRN Reason: SEE COMMENTS Stop: 10/23/18 15:02 Nitroglycerin (Nitroglycerin) 0.4 mg SL Q5MIN PRN PRN Reason: Chest Pain Stop: 10/25/18 04:37 Last Admin: 04/25/18 05:01 Dose: 0.4 mg Sotalol HCl (Betapace) 80 mg PO Q12H MADDIE Stop: 10/26/18 10:01 Last Admin: 04/27/18 09:53 Dose: 80 mg Warfarin Sodium (Coumadin Perpt) 1 each PO DAILY@1800 PRN PRN Reason: SEE COMMENTS Stop: 10/23/18 18:01 Warfarin Sodium (Coumadin) 4 mg PO ONCE ONE Stop: 04/27/18 18:01 04/27/18 04/27/18 03:54 03:54 INR 2.8 Sodium 140 Potassium 3.6 Chloride 107 Carbon Dioxide 25 BUN 13 Creatinine 0.80 Glucose 86 Calcium 8.8 BMP 04/27/18 Range/Units 03:54 Sodium 140 (136-145) mEq/L Potassium 3.6 (3.5-5.1) mEq/L Chloride 107 (98-107) mEq/L Carbon Dioxide 25 (23-29) mEq/L BUN 13 (8-23) mg/dL Creatinine 0.80 (0.60-1.20) mg/dL Glucose 86 (70-105) mg/dL Calcium 8.8 (8.6-10.3) mg/dL - Imaging and Cardiology Echo: report reviewed - EKG Interpretation EKG results cardiology: other (12 hr tele AVG HR 65, SR) - VTE Reasons for not Prescribing Prophylaxis: Not indicated-Anticoagulated or INR therapeutic Consult Discharge Plan - Plan Referrals: Noemí Blount MD [Primary Care Provider] - 05/05/18 7:00 pm
--- NOTE | 2018-04-27 17:22 | Electrocardiograph Report ---
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
--- NOTE | 2018-04-27 17:24 | Electrocardiograph Report ---
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
--- NOTE | 2018-04-27 17:25 | Electrocardiograph Report ---
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
[2018-04-27] MEDS ORDERED: *HR* Warfarin 4 MG TABLET PO ONE (18:00)
--- NOTE | 2018-04-28 13:58 | Electrocardiograph Report ---
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
== END 2018-04-27 11:27 | disposition home or self-care (01) | DRG 309 ==
LOC: EMEROO 12:34 → 3BNU 12:34
PROVIDERS: ADMIT Internal Medicine; ATTEND Internal Medicine

== ENCOUNTER 2019-01-22 23:24 | Observation (INO) ==
--- NOTE | 2019-01-22 23:55 | Emergency Department Note ---
Disposition Clinical Impression: Atrial fibrillation with RVR, Palpitations Disposition: Admitted As Inpatient Condition: Good Referrals: Noemí Blount MD [Primary Care Provider] - Forms: ED Satisfaction Letter General Adult HPI - General Chief complaint: ED Arrhythmia/Palpitations Stated complaint: Chest Tightness "afib" Time Seen by Provider: 01/22/19 23:32 Source: patient Mode of arrival: ambulatory Limitations: no limitations Nursing Notes Reviewed: Yes Vital Signs Reviewed: Yes - History of Present Illness HPI Narrative: 78-year-old female with complex past medical history including atrial fibrillation currently on Coumadin presenting to the emergency department chief complaint of palpitations and chest pressure. According to the patient she forgot take her morning dose of sotalol. Around 7:30 this evening she started having palpitations and some chest pressure and realize she forgot her medicine. She took her nighttime dose at that time but palpitations continued to she came in for further evaluation. She denies any vomiting or shortness of breath. Does disclose some mild nausea. Denies any dizziness or headache. Pain Scale: 9 - Related Data Home Medications Medication Instructions Recorded Confirmed Ranitidine HCl [Zantac] 150 mg PO BID 04/18/15 11/19/18 Folic Acid 1 mg PO DAILY 10/10/16 11/19/18 Lovastatin [Mevacor] 20 mg PO HS 10/10/16 11/19/18 Albuterol Neb [Proventil Neb] 2.5 mg IH TID PRN 01/07/17 11/19/18 Cyanocobalamin (Vitamin B-12) 1,000 mcg PO Q48H 01/07/17 11/19/18 [Vitamin B12] Loratadine [Claritin] 10 mg PO DAILY PRN 01/07/17 11/19/18 Warfarin [Coumadin] 4 mg PO DAILY 03/01/17 11/19/18 Amlodipine Besylate 2.5 mg PO DAILY 08/02/18 11/19/18 Previous Rx's Medication Instructions Recorded LORazepam [Ativan] 0.5 mg PO HS #0 01/08/17 Sotalol [Betapace] 80 mg PO Q12HR #60 tablet 04/27/18 Doxycycline 100 mg PO BID #20 capsule 11/12/18 Ondansetron HCl [Zofran] 4 mg PO Q8HR PRN #7 tab 11/19/18 Allergies Allergy/AdvReac Type Severity Reaction Status Date / Time BRANDON Inhibitors AdvReac Cough Verified 11/12/18 19:51 Penicillins AdvReac Rash Verified 11/12/18 19:51 All systems ED: reviewed and negative except as stated. Constitutional: Denies: fever Eyes: Reports: as per HPI ENT ED: Reports: as per HPI Cardiovascular: Reports: chest pain, palpitations Respiratory: Denies: dyspnea Gastrointestinal: Reports: as per HPI Genitourinary: Reports: as per HPI Musculoskeletal: Reports: as per HPI Integumentary: Reports: as per HPI Neurological: Denies: headache Psychiatric: Reports: as per HPI Endocrine: Reports: as per HPI Hematological/Lymphatic: Reports: as per HPI Allergic/Immunologic: Reports: as per HPI Past Medical History - Past Medical History Attestation: Yes The following information was validated with the patient. 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 Absent: respiratory distress, wheezes - Cardiovascular Cardiovascular exam: Present: tachycardia, irregular rhythm - Abdominal Exam Abdominal exam: Present: soft, Non-Tender. Absent: distention, guarding, rebound - Extremities Exam Extremities exam: Present: full ROM - Neurological Exam Neurological exam: Present: alert, oriented X3 - Psychiatric Psychiatric exam: Present: normal affect - Skin Skin exam: Present: warm Course Course Narrative: 78 year female presenting for palpitations and chest pain. Patient forgot her dose of sotalol this morning. Patient has known history of paroxysmal atrial fibrillation currently on Coumadin. In the room patient is alert and oriented 3. Tachycardic and irregular heart rate ranging from 110-160. Hemodynamically stable. Physical exam is otherwise benign. At this time will obtain basic laboratory analysis, troponin, EKG and provide the patient with Cardizem IV and drip. Disposition most likely admission pending results. Patient agrees with this plan. - Reevaluation(s) Reevaluation #1: Patient's laboratory analysis within normal limits. EKG shows atrial flutter with a 2 to one block. Patient given 5 mg of IV push Cardizem and start on a Cardizem drip. Patient responded appropriately with a heart rate less than 100. At this time she remains alert and oriented 3 and hemodynamically stable. We will plan to admit the patient further evaluation and treatment of her atrial fibrillation. Patient agrees with this plan. I spoke with the hospitalist on- call who agrees to accept the patient at this time. He is requesting that we replete her orally with potassium 40 mEq. Vital Signs Temperature 97.9 F 01/22/19 23:28 Pulse Rate 146 01/22/19 23:28 Respiratory Rate 16 01/22/19 23:28 Blood Pressure 167/98 01/22/19 23:28 O2 Sat by Pulse Oximetry 96 01/22/19 23:28 Temperature 97.9 F 01/22/19 23:28 Pulse Rate 120 01/23/19 00:40 Respiratory Rate 19 01/23/19 00:40 Blood Pressure 129/87 01/23/19 00:40 O2 Sat by Pulse Oximetry 93 01/23/19 00:40 Oxygen Delivery Oxygen Delivery Room Air Medical Decision Making - Lab Data Result diagrams: 01/22/19 23:45 01/22/19 23:45 Lab Results 01/22/19 01/22/19 01/22/19 Range/Units 23:45 23:45 23:45 WBC 7.0 (4.3-11.1) K/mcL RBC 4.27 (3.82-4.97) M/mcL Hgb 12.5 (11.5-15.4) g/dL Hct 38.8 (35.3-44.9) % MCV 90.9 (83.0-100.0) fL MCH 29.3 (28.0-33.3) pg MCHC 32.2 (31.6-35.5) g/dL RDW 14.6 H (11.5-14.5) % Plt Count 192 (140-400) K/mcL MPV 12.3 (9.4-12.4) fL Immature Gran % 0.7 (0-4) % Seg Neutrophils % 65.3 % Lymphocytes % 19.9 % Monocytes % 11.5 % Eosinophils % 2.3 % Basophils % 0.3 % Neutrophils # 4.5 (1.6-8.9) K/mcL Lymphocytes # 1.4 (0.6-4.6) K/mcL Monocytes # 0.8 (0.0-1.3) K/mcL Eosinophils # 0.2 (0.0-0.6) K/mcL Basophils # 0.0 (0.0-0.2) K/mcL PT 26.4 H (9.4-12.1) Seconds INR 2.3 APTT 50.8 H (26.0-36.0) Seconds Sodium 141 (136-145) mEq/L Potassium 3.7 (3.5-5.1) mEq/L Chloride 107 (98-107) mEq/L Carbon Dioxide 27 (23-29) mEq/L BUN 10 (8-23) mg/dL Creatinine 0.87 (0.60-1.20) mg/dL Est GFR ( Amer) > 60 (> 60) Est GFR (Non-Af Amer) > 60 (> 60) BUN/Creatinine Ratio 11 (6-26) Glucose 124 H (70-105) mg/dL Calculated Osmolality 292 (280-300) Calcium 9.5 (8.6-10.3) mg/dL Magnesium 2.0 (1.6-2.6) mg/dL Troponin I 0.03 (< 0.04) ng/mL - EKG Data EKG #1 EKG attestation: Yes I reviewed and interpreted this EKG. EKG results narrative: Atrial flutter with 2 to one block. 116 beats per minute. QRS 91, QTC 448. No sign of acute ST segment elevation or ischemia. Compared to previous EKG completed on 11/29/2018 new Atrial flutter noted.
[2019-01-23 00:12] LABS: Basophils % 0.3 %; Eosinophils # 0.2 K/mcL (0.0-0.6); Eosinophils % 2.3 %; Hematocrit 38.8 % (35.3-44.9); Hemoglobin 12.5 g/dL (11.5-15.4); Immature Granulocytes % 0.7 % (0-4); Lymphocytes # 1.4 K/mcL (0.6-4.6); Lymphocytes % 19.9 %; Mean Corpuscular HGB Conc 32.2 g/dL (31.6-35.5); Mean Corpuscular Hemoglobin 29.3 pg (28.0-33.3); Mean Corpuscular Volume 90.9 fL (83.0-100.0); Mean Platelet Volume 12.3 fL (9.4-12.4); Monocytes # 0.8 K/mcL (0.0-1.3); Monocytes % 11.5 %; Neutrophils # 4.5 K/mcL (1.6-8.9); Platelet Count 192 K/mcL (140-400); Red Blood Count 4.27 M/mcL (3.82-4.97); Red Cell Distribution Width 14.6 % (11.5-14.5); Segmented Neutrophils % 65.3 %
[2019-01-23 00:23] LABS: BUN/Creatinine Ratio 11 (6-26); Blood Urea Nitrogen 10 mg/dL (8-23); Calcium 9.5 mg/dL (8.6-10.3); Carbon Dioxide 27 mEq/L (23-29); Chloride 107 mEq/L (98-107); Glucose 124 mg/dL (70-105); Osmolality,Calculated 292 (280-300); Potassium 3.7 mEq/L (3.5-5.1); Sodium 141 mEq/L (136-145); eGFR For Non-African Americans > 60 (> 60)
[2019-01-23 00:24] LABS: Troponin I 0.03 ng/mL (< 0.04)
[2019-01-23 00:36] LABS: INR 2.3; Prothrombin Time 26.4 Seconds (9.4-12.1)
[2019-01-23 00:39] LABS: Activated Partial Thrombo Time 50.8 Seconds (26.0-36.0)
[2019-01-23] MEDS ORDERED: Potassium Chloride Elixir 20 MEQ/15 ML UDC PO ONE (00:53)
--- NOTE | 2019-01-23 00:54 | Emergency Department Note ---
Disposition Clinical Impression: Atrial fibrillation with RVR Disposition: Admitted As Inpatient Condition: Good Referrals: Noemí Blount MD [Primary Care Provider] - Forms: ED Satisfaction Letter General Adult HPI - General Chief complaint: ED Arrhythmia/Palpitations Stated complaint: Chest Tightness "afib" Time Seen by Provider: 01/22/19 23:32 Source: patient Mode of arrival: ambulatory Limitations: no limitations - History of Present Illness Pain Scale: 9 - Related Data Home Medications Medication Instructions Recorded Confirmed Ranitidine HCl [Zantac] 150 mg PO BID 04/18/15 11/19/18 Folic Acid 1 mg PO DAILY 10/10/16 11/19/18 Lovastatin [Mevacor] 20 mg PO HS 10/10/16 11/19/18 Albuterol Neb [Proventil Neb] 2.5 mg IH TID PRN 01/07/17 11/19/18 Cyanocobalamin (Vitamin B-12) 1,000 mcg PO Q48H 01/07/17 11/19/18 [Vitamin B12] Loratadine [Claritin] 10 mg PO DAILY PRN 01/07/17 11/19/18 Warfarin [Coumadin] 4 mg PO DAILY 03/01/17 11/19/18 Amlodipine Besylate 2.5 mg PO DAILY 08/02/18 11/19/18 Previous Rx's Medication Instructions Recorded LORazepam [Ativan] 0.5 mg PO HS #0 01/08/17 Sotalol [Betapace] 80 mg PO Q12HR #60 tablet 04/27/18 Doxycycline 100 mg PO BID #20 capsule 11/12/18 Ondansetron HCl [Zofran] 4 mg PO Q8HR PRN #7 tab 11/19/18 Allergies Allergy/AdvReac Type Severity Reaction Status Date / Time BRANDON Inhibitors AdvReac Cough Verified 11/12/18 19:51 Penicillins AdvReac Rash Verified 11/12/18 19:51 Constitutional: Denies: fever Eyes: Reports: as per HPI ENT ED: Reports: as per HPI Cardiovascular: Reports: chest pain, palpitations Respiratory: Denies: dyspnea Gastrointestinal: Reports: as per HPI Genitourinary: Reports: as per HPI Musculoskeletal: Reports: as per HPI Integumentary: Reports: as per HPI Neurological: Denies: headache Psychiatric: Reports: as per HPI Endocrine: Reports: as per HPI Hematological/Lymphatic: Reports: as per HPI Allergic/Immunologic: Reports: as per HPI Past Medical History - Past Medical History Medical history: Reports: atrial fibrillation, hyperlipidemia, hypertension Surgical history: Reports: appendectomy, cancer surgery, cataract, cholecystectomy, hysterectomy, NELLA/BSO, other Psychiatric history: Reports: anxiety, depression [employer] history: Reports: bilateral tubal ligation - Social History Smoking Status: Never smoker Smokeless Tobacco Status: No Alcohol use: Reports: none Drug use: Reports: none Physical Exam - General Limitations: no limitations General appearance: alert, in no apparent distress Course Vital Signs Temperature 97.9 F 01/22/19 23:28 Pulse Rate 146 01/22/19 23:28 Respiratory Rate 16 01/22/19 23:28 Blood Pressure 167/98 01/22/19 23:28 O2 Sat by Pulse Oximetry 96 01/22/19 23:28 Temperature 97.9 F 01/22/19 23:28 Pulse Rate 120 01/23/19 00:40 Respiratory Rate 19 01/23/19 00:40 Blood Pressure 129/87 01/23/19 00:40 O2 Sat by Pulse Oximetry 93 01/23/19 00:40 Oxygen Delivery Oxygen Delivery Room Air Medical Decision Making - Lab Data Result diagrams: 01/22/19 23:45 01/22/19 23:45 Lab Results 01/22/19 01/22/19 01/22/19 Range/Units 23:45 23:45 23:45 WBC 7.0 (4.3-11.1) K/mcL RBC 4.27 (3.82-4.97) M/mcL Hgb 12.5 (11.5-15.4) g/dL Hct 38.8 (35.3-44.9) % MCV 90.9 (83.0-100.0) fL MCH 29.3 (28.0-33.3) pg MCHC 32.2 (31.6-35.5) g/dL RDW 14.6 H (11.5-14.5) % Plt Count 192 (140-400) K/mcL MPV 12.3 (9.4-12.4) fL Immature Gran % 0.7 (0-4) % Seg Neutrophils % 65.3 % Lymphocytes % 19.9 % Monocytes % 11.5 % Eosinophils % 2.3 % Basophils % 0.3 % Neutrophils # 4.5 (1.6-8.9) K/mcL Lymphocytes # 1.4 (0.6-4.6) K/mcL Monocytes # 0.8 (0.0-1.3) K/mcL Eosinophils # 0.2 (0.0-0.6) K/mcL Basophils # 0.0 (0.0-0.2) K/mcL PT 26.4 H (9.4-12.1) Seconds INR 2.3 APTT 50.8 H (26.0-36.0) Seconds Sodium 141 (136-145) mEq/L Potassium 3.7 (3.5-5.1) mEq/L Chloride 107 (98-107) mEq/L Carbon Dioxide 27 (23-29) mEq/L BUN 10 (8-23) mg/dL Creatinine 0.87 (0.60-1.20) mg/dL Est GFR ( Amer) > 60 (> 60) Est GFR (Non-Af Amer) > 60 (> 60) BUN/Creatinine Ratio 11 (6-26) Glucose 124 H (70-105) mg/dL Calculated Osmolality 292 (280-300) Calcium 9.5 (8.6-10.3) mg/dL Magnesium 2.0 (1.6-2.6) mg/dL Troponin I 0.03 (< 0.04) ng/mL Attestation Statement - Attestation Attestation: I examined this patient and my medical decision-making was reviewed with the Resident Physician. I agree with the documented findings, disposition and treatment plan as described except to the extent set forth below. 78 year old female with history of afib rvr and rates of 140-160s is now on cardizem wit drip of 5 and rates are down to 70-80s. admitted to medicine.
[2019-01-23] MEDS ORDERED: Naloxone 0.4 MG/ML INJ IVP PRN (01:45)
--- NOTE | 2019-01-23 01:52 | Internal Med History&Physical ---
Date of Encounter: 01/23/19 Time of Encounter: 01:47 Internal Medicine - H&P: HPI Chief complaint: Palpatation History of present illness: Ms. Gee is a 78 year old female with a past medical history of hypertension, atrial fibrillation on rhythm control, coronary artery disease and hypertension who presented to the ED due to complaints of palpitations and chest pressure. Patient currently on sotalol for rhythm control of her paroxysmal atrial fibrillation. Patient has had numerous previous admissions for palpitations. She was seen by electrophysiology approximately one year ago and started on rhythm control. Patient currently on warfarin for anticoagulation. According to the patient, she began having palpitations and chest pressure on 7:30 this evening. At that time she realized that she forgot to take in her morning dose of sotalol. Patient subsequently took it that evening, however, palpitations continue to persist and patient decided to come in for further evaluation. On arrival heart rate noted to range between 110-160. Patient was given on a medically stable. EKG report indicated atrial flutter with a 2 to 1 block; no evidence of ischemic changes compared to previous EKG. Patient was given a loading dose of Cardizem and begun on a Cardizem drip. Heart rate responded with a heart rate of less than 100. Past Med Surg Social Fam HX - Past Medical History Medical history: atrial fibrillation, hyperlipidemia, hypertension Additional medical history: lymphoma Psychiatric history: anxiety, depression - Past Surgical History Surgical History: appendectomy, cancer surgery, cataract, cholecystectomy, hysterectomy, NELLA/BSO, other Additional surgical history: lymph node removed - Social History Smoking Status: Never smoker Smokeless Tobacco Status: No Alcohol use: none Drug use: none - Family History Mother Adopted: No Family Member Ethnicity: Non- Living Status: Hx Family Cardiac Disorders: Yes (stroke) Hx Family Respiratory Disorders: No Hx Family Cancer: No Hx Family GI Disorders: No Hx Family Endocrine Disorder: No Hx Family Neuromuscular Disorders: No Hx Family Neurologic Disorders: Yes (CVA) Hx Family HEENT Disorders: No Hx Family Autoimmune Disorders: No Father Living Status: Hx Family Cancer: Yes (COLON) Hx Family Neurologic Disorders: Yes (alzheimer's) Sister Living Status: Hx Family Cardiac Disorders: Yes (CO in 80s) Hx Family Cancer: Yes (Colon) Brother Living Status: Hx Family Cardiac Disorders: Yes (CO in 80s) Hx Family Cancer: Yes (Pancreatic) Internal Medicine - H&P: Meds Ranitidine HCl [Zantac] 150 mg PO BID 04/18/15 [History] Folic Acid 1 mg PO DAILY 10/10/16 [History] Lovastatin [Mevacor] 20 mg PO HS 10/10/16 [History] Albuterol Neb [Proventil Neb] 2.5 mg IH TID PRN 01/07/17 [History] Cyanocobalamin (Vitamin B-12) [Vitamin B12] 1,000 mcg PO Q48H 01/07/17 [History] Loratadine [Claritin] 10 mg PO DAILY PRN 01/07/17 [History] LORazepam [Ativan] 0.5 mg PO HS #0 01/08/17 [Rx] Warfarin [Coumadin] 4 mg PO DAILY 03/01/17 [History] Sotalol [Betapace] 80 mg PO Q12HR #60 tablet 04/27/18 [Rx] Amlodipine Besylate 2.5 mg PO DAILY 08/02/18 [History] Doxycycline 100 mg PO BID #20 capsule 11/12/18 [Rx] Ondansetron HCl [Zofran] 4 mg PO Q8HR PRN #7 tab 11/19/18 [Rx] Allergy/AdvReac Type Severity Reaction Status Date / Time BRANDON Inhibitors AdvReac Cough Verified 11/12/18 19:51 Penicillins AdvReac Rash Verified 11/12/18 19:51 All Systems PM: A 10-system review of systems was performed and is negative for pertinent findings except as documented above in the HPI. - Constitutional Constitutional: no chills, no fever(s), no night sweats - EENT Eyes: no change in vision, no discharge, no pain, no photophobia Ears: no ear discharge, no ear pain, no tinnitus Nose, mouth and throat: no dysphagia, no nasal discharge, no neck pain, no sore throat - Cardiovascular Cardiovascular ROS IM: no chest pain, no diaphoresis, no dyspnea, no lightheadedness, no palpitations, no syncope - Respiratory Respiratory: no cough, no dyspnea, no wheezing, no excessive phlegm production - Gastrointestinal Gastrointestinal: no abdominal pain, no diarrhea, no hematemesis, no hematochezia, no melena, no nausea, no vomiting - Genitourinary Genitourinary: no change in urinary stream, no dysuria, no flank pain, no hematu hiren - Musculoskeletal Musculoskeletal ROS IM: no numbness, no tingling - Integumentary Integumentary IM: no rash, no unusual bruising - Neurological Neurological ROS: no confusion, no convulsions, no focal weakness, no numbness, no tingling, no tremor(s) - Hematologic/Lymphatic Hematologic/Lymphatic: no easy bruising - Constitutional Vitals: Temp Pulse Resp BP Pulse Ox 97.9 F 105 18 119/69 95 01/22/19 23:28 01/23/19 01:03 01/23/19 01:18 01/23/19 01:18 01/23/19 01:03 Exam: General: Alert and oriented 3 Skin:Normal color, no rash, no lesions. HEENT:EOM, pupils equal, round and reactive. Cardiovascular:Normal S1 & S2, no rubs, murmurs or gallops. No JVD. Pulse regular. Lungs:Normal breath sounds, no wheezes or crackles. Abdomen:Soft, non-tender, no rigidity. Extremities:No deformity, no edema or tenderness, no joint swelling or clubbing. Neurological:Normal cognition and motor skills. Pulses:Carotid and radial pulses normal +2. Rest of the physical exam is non contributory Internal Med - H&P Results - Labs CBC & Chem 7: 01/22/19 23:45 01/23/19 03:43 Labs: Short CBC 01/22/19 Range/Units 23:45 WBC 7.0 (4.3-11.1) K/mcL Hgb 12.5 (11.5-15.4) g/dL Hct 38.8 (35.3-44.9) % Plt Count 192 (140-400) K/mcL Neutrophils # 4.5 (1.6-8.9) K/mcL BMP 01/22/19 23:45 Sodium 141 Potassium 3.7 Chloride 107 Carbon Dioxide 27 BUN 10 Creatinine 0.87 Glucose 124 H Calcium 9.5 Cardiac Enzymes 01/22/19 Range/Units 23:45 Troponin I 0.03 (< 0.04) ng/mL - Impressions ITS Impressions Chest X-Ray 01/22/19 23:33 IMPRESSION: Obscured left costophrenic sulcus may be due to atelectasis the setting of shallow inspiratory effort versus small effusion. D/ / Robert Klein / Robert Klein Interpreting Provider: Robert Klein - Assessment and Plan (1) Atrial fibrillation with rapid ventricular response Current Visit: Yes Status: Acute Assessment and plan: Patient presents with acute onset palpitations and chest pressure in the setting of forgetting to take her sotalol earlier this morning. On arrival EKG showed atrial flutter with predominant 2-1 AV block. Patient was placed on Cardizem drip with appropriate response in heart rate with heart rate less than 100. Laboratory workup including troponin were otherwise unremarkable. Patient reverted back to sinus rhythm during my assessment after arriving to the floor confirmed on repeat EKG. No reports of any chest pressure at this time. Suspect symptoms likely secondary to arrhythmia due to forgetting to take medication. -Continue Cardizem drip at this time. We will attempt to gradually titrate down and wean off. -Continue telemetry -Resume morning dose of sotalol. -Consider cardiology consult if arrhythmia persists. (2) Palpitations Current Visit: Yes Status: Acute Assessment and plan: See above (3) Chest pain Current Visit: No Status: Acute Assessment and plan: Patient chest pressure in the setting of palpitations in the epigastric region. No ischemic changes noted on EKG. Initial troponin negative. Suspect likely secondary to atrial flutter/atrial fibrillation. Now resolved and back in sinus rhythm. We will repeat troponin. Consider cardiology consult if any change in troponin or chest pressure continues in the absence of arrhythmia. Qualifiers: Chest pain type: other chest pain Qualified Code(s): R07.89 - Other chest pain; R07.8 - Other chest pain (4) PAF (paroxysmal atrial fibrillation) Current Visit: No Status: Acute Assessment and plan: History of paroxysmal atrial fibrillation on rhythm control with sotalol. Resume sotalol. (5) CAD (coronary artery disease) Current Visit: No Status: Chronic Assessment and plan: History of CAD. Resume home medication management. Qualifiers: Coronary Disease-Associated Artery/Lesion type: [place] artery [place] vs. transplanted heart: [place] heart Associated angina: without angina Qualified Code(s): I25.10 - Atherosclerotic heart disease of [place] coronary artery without angina pectoris (6) Hypertension Current Visit: No Status: Chronic Qualifiers: Hypertension type: essential hypertension Qualified Code(s): I10 - Essential (primary) hypertension (7) DVT prophylaxis Current Visit: No Status: Acute Assessment and plan: Patient currently anticoagulated on warfarin. INR within therapeutic limits. - Time Spent With Patient Total time spent is greater than 50% in coordination of care (as documented) at patient's floor/unit and/or counseling patient:
[2019-01-23 04:50] LABS: INR 2.5; Prothrombin Time 27.9 Seconds (9.4-12.1)
[2019-01-23 04:53] LABS: Activated Partial Thrombo Time 48.9 Seconds (26.0-36.0)
[2019-01-23 04:58] LABS: BUN/Creatinine Ratio 11 (6-26); Blood Urea Nitrogen 9 mg/dL (8-23); Calcium 9.3 mg/dL (8.6-10.3); Carbon Dioxide 26 mEq/L (23-29); Chloride 109 mEq/L (98-107); Glucose 107 mg/dL (70-105); Osmolality,Calculated 289 (280-300); Potassium 4.4 mEq/L (3.5-5.1); Sodium 140 mEq/L (136-145); eGFR For Non-African Americans > 60 (> 60)
[2019-01-23] MEDS ORDERED: Albuterol 2.5 MG/3 ML NEBULIZER IH PRN (08:01)
[2019-01-23] MEDS ORDERED: Loratadine 10 MG TABLET PO PRN (08:01)
[2019-01-23] MEDS ORDERED: Ondansetron ODT 4 MG TAB.RAPDIS PO PRN (08:01)
[2019-01-23] MEDS ORDERED: Cyanocobalamin (B-12) 1,000 MCG TABLET PO SCH (08:15)
[2019-01-23] MEDS ORDERED: Famotidine 20 MG TABLET PO SCH (09:00)
[2019-01-23] MEDS ORDERED: amLODIPine 5 MG TABLET PO SCH (09:00)
[2019-01-23] MEDS ORDERED: Folic Acid 1 MG TABLET PO SCH (09:00)
[2019-01-23 10:29] VITALS: BP 137/76
--- NOTE | 2019-01-23 10:57 | Discharge Summary ---
Estimated PT Needs at Discharge: None Estimated OT Needs at Discharge: None Date of Encounter: 01/23/19 Time of Encounter: 09:00 - Discharge Diagnosis (1) Chest pain Priority: Primary Status: Acute Qualifiers: Chest pain type: other chest pain Qualified Code(s): R07.89 - Other chest pain; R07.8 - Other chest pain (2) CAD (coronary artery disease) Priority: Secondary Status: Chronic Qualifiers: Coronary Disease-Associated Artery/Lesion type: [place] artery [place] vs. transplanted heart: [place] heart Associated angina: without angina Qualified Code(s): I25.10 - Atherosclerotic heart disease of [place] coronary artery without angina pectoris (3) DVT prophylaxis Priority: Secondary Status: Acute (4) Atrial fibrillation with rapid ventricular response Priority: Primary Status: Acute (5) Hypertension Priority: Secondary Status: Chronic Qualifiers: Hypertension type: essential hypertension Qualified Code(s): I10 - Essential (primary) hypertension (6) PAF (paroxysmal atrial fibrillation) Priority: Secondary Status: Acute (7) Palpitations Priority: Secondary Status: Acute Hospital course: Ms. Gee is a 78 year old female presents to ER for palpitation. Patient has history of PAF, on Sotalol for rhythm control. Patient has several A. fib RVR previously, need hospitalization. In the emergency room, EKG shows A. fib RVR. Patient placed on Cardizem drip. Patient is on Coumadin for anticoagulation. INR therapeutic. After treatment, patient's heart rate switch to sinus rhythm. Cardizem drip has been stopped. Home medication by mouth sotalol restarted. Patient denies chest pain, shortness of breath, or palpitation. Heart rate 60 on sinus rhythm. Patient denies fever/cough/abdominal pain/dysuria. No clear triggering factor identified. Will DC patient home and continue follow-up with cardiology as outpatient. I have seen and examined the patient today. Patient feels fine, no complaints. Vitals are stable. Will DC patient home today. Discharge discussed with: patient - Time Spent with Patient Total time spent providing and/or coordinating discharge services: 25 minutes Time spent: Less than 30 minutes - Discharge Medications Prescriptions: Continued Ranitidine HCl [Zantac] 150 mg PO BID Lovastatin [Mevacor] 20 mg PO HS Folic Acid 1 mg PO DAILY Loratadine [Claritin] 10 mg PO DAILY PRN PRN Reason: Allergy Symptoms Cyanocobalamin (Vitamin B-12) [Vitamin B12] 1,000 mcg PO Q48H Albuterol Neb [Proventil Neb] 2.5 mg IH TID PRN PRN Reason: Dyspnea LORazepam [Ativan] 0.5 mg PO HS #0 Warfarin [Coumadin] 4 mg PO DAILY Sotalol [Betapace] 80 mg PO Q12HR #60 tablet Amlodipine Besylate 2.5 mg PO DAILY Ondansetron HCl [Zofran] 4 mg PO Q8HR PRN #7 tab PRN Reason: Nausea And Vomiting Home Medications: Ranitidine HCl [Zantac] 150 mg PO BID 04/18/15 [History] Folic Acid 1 mg PO DAILY 10/10/16 [History] Lovastatin [Mevacor] 20 mg PO HS 10/10/16 [History] Albuterol Neb [Proventil Neb] 2.5 mg IH TID PRN 01/07/17 [History] Cyanocobalamin (Vitamin B-12) [Vitamin B12] 1,000 mcg PO Q48H 01/07/17 [History] Loratadine [Claritin] 10 mg PO DAILY PRN 01/07/17 [History] LORazepam [Ativan] 0.5 mg PO HS #0 01/08/17 [Rx] Warfarin [Coumadin] 4 mg PO DAILY 03/01/17 [History] Sotalol [Betapace] 80 mg PO Q12HR #60 tablet 04/27/18 [Rx] Amlodipine Besylate 2.5 mg PO DAILY 08/02/18 [History] Ondansetron HCl [Zofran] 4 mg PO Q8HR PRN #7 tab 11/19/18 [Rx] Allergies/Adverse Reactions: Allergy/AdvReac Type Severity Reaction Status Date / Time BRANDON Inhibitors AdvReac Cough Verified 11/12/18 19:51 Penicillins AdvReac Rash Verified 11/12/18 19:51 Date of admission: 01/23/19 01:08 Primary care physician: Noemí Blount Discharging clinician: Augustine Feliz Anticipated date of discharge: 01/23/19 - Constitutional Vitals: Temp Pulse Resp BP Pulse Ox 98.3 F 60 16 137/76 94 01/23/19 10:23 01/23/19 10:23 01/23/19 10:23 01/23/19 10:23 01/23/19 10:23 Exam: Pt is AAO x 3, in NAD HEENT: NC/AT, PERRL Neck: Supple, no JVD, no LAD Lungs: CTA b/l Heart: S1S2, RRR Abd: Soft, nontender, BS present Ext: ROM wnl, no pedal edema Neuro: No focal deficit - Patient Status Disposition: Home, Self-Care Condition: Good Functional capacity at discharge: independent ambulation Overall status at discharge: patient is back to baseline - Discharge Instructions Follow Up With: Noemí Blount MD [Primary Care Provider] - - Diet and Activity Activity: increase activity as tolerated Diet: low fat, low cholesterol, low salt diet
[2019-01-23] MEDS ORDERED: *HR* LORazepam 0.5 MG TABLET PO SCH (21:00)
--- NOTE | 2019-01-24 18:31 | Electrocardiograph Report ---
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
--- NOTE | 2019-01-24 18:34 | Electrocardiograph Report ---
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
== END 2019-01-23 12:22 | disposition home or self-care (01) ==
LOC: EMEROOARM 23:24 → 3ANU 23:24
PROVIDERS: ADMIT Pediatrics; ATTEND Pediatrics

== ENCOUNTER 2019-12-24 23:21 | Observation (INO) ==
[2019-12-24] MEDS ORDERED: Aspirin 325 MG TABLET PO ONE (23:38)
[2019-12-24] MEDS ORDERED: Nitroglycerin 0.4 MG TAB.SUBL SL PRN (23:38)
[2019-12-25 00:12] LABS: Basophils % 0.4 %; Eosinophils # 0.2 K/mcL (0.0-0.6); Eosinophils % 2.4 %; Hematocrit 42.1 % (35.3-44.9); Hemoglobin 13.4 g/dL (11.5-15.4); Immature Granulocytes % 0.5 % (0-4); Lymphocytes # 2.1 K/mcL (0.6-4.6); Lymphocytes % 27.3 %; Mean Corpuscular HGB Conc 31.8 g/dL (31.6-35.5); Mean Corpuscular Volume 91.1 fL (83.0-100.0); Mean Platelet Volume 11.9 fL (9.4-12.4); Monocytes # 0.8 K/mcL (0.0-1.3); Monocytes % 10.6 %; Neutrophils # 4.6 K/mcL (1.6-8.9); Platelet Count 234 K/mcL (140-400); Red Blood Count 4.62 M/mcL (3.82-4.97); Red Cell Distribution Width 14.6 % (11.5-14.5); Segmented Neutrophils % 58.8 %; White Blood Count 7.8 K/mcL (4.3-11.1)
[2019-12-25 00:20] LABS: INR 2.6; Prothrombin Time 29.9 Seconds (9.4-12.1)
[2019-12-25 00:27] LABS: Alanine Aminotransferase 9 Units/L (7-52); Albumin 4.3 g/dL (3.5-5.7); Albumin/Globulin Ratio 1.7 (1.1-2.2); Alkaline Phosphatase 87 Units/L (34-104); Aspartate Amino Transferase 17 Units/L (13-39); BUN/Creatinine Ratio 13 (6-26); Bilirubin,Direct 0.1 mg/dL (0.0-0.2); Bilirubin,Indirect 0.3 mg/dL (0.0-1.0); Bilirubin,Total 0.4 mg/dL (0.3-1.0); Blood Urea Nitrogen 14 mg/dL (8-23); Calcium 9.8 mg/dL (8.6-10.3); Carbon Dioxide 26 mEq/L (23-29); Chloride 106 mEq/L (98-107); Globulin 2.5 g/dL (2.4-3.5); Glucose 123 mg/dL (70-105); Osmolality,Calculated 294 (280-300); Potassium 3.7 mEq/L (3.5-5.1); Sodium 141 mEq/L (136-145); Total Protein 6.8 g/dL (6.4-8.9); eGFR For African Americans > 60 (> 60); eGFR For Non-African Americans 50 (> 60)
[2019-12-25 00:28] LABS: Troponin I < 0.03 ng/mL (< 0.04)
[2019-12-25] MEDS ORDERED: Ondansetron ODT 4 MG TAB.RAPDIS SL PRN (02:31)
[2019-12-25] MEDS ORDERED: Naloxone 0.4 MG/ML INJ IVP PRN (02:31)
[2019-12-25] MEDS ORDERED: Ondansetron ODT 4 MG TAB.RAPDIS PO PRN (03:10)
[2019-12-25] MEDS ORDERED: Nitroglycerin 0.4 MG TAB.SUBL SL PRN (03:10)
[2019-12-25] MEDS ORDERED: *HR* LORazepam 0.5 MG TABLET PO PRN (03:10)
[2019-12-25] MEDS ORDERED: Albuterol 2.5 MG/3 ML NEBULIZER IH PRN ×2 (03:10→03:16)
[2019-12-25] MEDS ORDERED: amLODIPine 5 MG TABLET PO SCH (05:00)
[2019-12-25 06:17] LABS: Basophils % 0.4 %; Eosinophils # 0.1 K/mcL (0.0-0.6); Eosinophils % 2.6 %; Lymphocytes # 1.9 K/mcL (0.6-4.6); Lymphocytes % 36.9 %; Mean Corpuscular HGB Conc 31.7 g/dL (31.6-35.5); Mean Corpuscular Volume 91.6 fL (83.0-100.0); Monocytes # 0.5 K/mcL (0.0-1.3); Monocytes % 9.9 %; Neutrophils # 2.6 K/mcL (1.6-8.9); Platelet Count 170 K/mcL (140-400); Red Blood Count 3.93 M/mcL (3.82-4.97); Red Cell Distribution Width 14.5 % (11.5-14.5); Segmented Neutrophils % 50.2 %; White Blood Count 5.1 K/mcL (4.3-11.1)
[2019-12-25 06:18] LABS: Hemoglobin 11.4 g/dL (11.5-15.4)
[2019-12-25 06:23] LABS: BUN/Creatinine Ratio 16 (6-26); Blood Urea Nitrogen 15 mg/dL (8-23); Calcium 9.2 mg/dL (8.6-10.3); Carbon Dioxide 26 mEq/L (23-29); Chloride 107 mEq/L (98-107); Glucose 103 mg/dL (70-105); Magnesium 1.9 mg/dL (1.6-2.6); Osmolality,Calculated 293 (280-300); Phosphorous 3.4 mg/dL (2.7-4.5); Potassium 3.8 mEq/L (3.5-5.1); Sodium 141 mEq/L (136-145); Troponin I < 0.03 ng/mL (< 0.04); eGFR For African Americans > 60 (> 60); eGFR For Non-African Americans 57 (> 60)
[2019-12-25 10:46] VITALS: BP 115/68
[2019-12-25] MEDS ORDERED: *HR* Warfarin 3 MG TABLET PO SCH (18:00)
[2019-12-26] MEDS ORDERED: *HR* Warfarin 4 MG TABLET PO SCH (18:00)
== END 2019-12-25 14:32 | disposition home or self-care (01) ==
LOC: EMEROOARM 23:21 → 3BNU 23:21 → SUATTDRO 12-25 01:43 → 3BNU 12-25 02:16
PROVIDERS: ADMIT Internal Medicine; ATTEND Internal Medicine

== ENCOUNTER 2020-04-16 10:00 | Observation (INO) ==
[2020-04-16] MEDS ORDERED: Naloxone 0.4 MG/ML INJ IVP PRN (10:57)
[2020-04-16] MEDS ORDERED: Ondansetron ODT 4 MG TAB.RAPDIS PO PRN (11:00)
[2020-04-16] MEDS ORDERED: *HR* LORazepam 0.5 MG TABLET PO PRN (11:00)
[2020-04-16] MEDS ORDERED: Albuterol 2.5 MG/3 ML NEBULIZER IH PRN (11:00)
[2020-04-16] MEDS ORDERED: Nitroglycerin 0.4 MG TAB.SUBL SL PRN (11:00)
[2020-04-16] MEDS: Cyanocobalamin (B-12) 1,000 MCG TABLET PO SCH (11:53)
[2020-04-16] MEDS: Folic Acid 1 MG TABLET PO SCH (11:53)
[2020-04-16 12:49] LABS: INR 2.1; Prothrombin Time 24.1 Seconds (9.4-12.1)
[2020-04-16] MEDS ORDERED: Warfarin perPT PO PRN (18:00)
[2020-04-16] MEDS ORDERED: *HR* Warfarin 4 MG TABLET PO ONE (18:00)
[2020-04-17 03:36] LABS: INR 2.2
[2020-04-17] MEDS: Folic Acid 1 MG TABLET PO SCH (09:47)
[2020-04-17] MEDS: amLODIPine 5 MG TABLET PO SCH (14:10)
[2020-04-17] MEDS ORDERED: *HR* Warfarin 4 MG TABLET PO SCH (18:00)
[2020-04-18 06:22] LABS: INR 2.4; Prothrombin Time 27.2 Seconds (9.4-12.1)
[2020-04-18] MEDS: amLODIPine 5 MG TABLET PO SCH (08:53)
[2020-04-18] MEDS: Folic Acid 1 MG TABLET PO SCH (08:54)
[2020-04-18] MEDS ORDERED: amLODIPine 5 MG TABLET PO ONE (09:45)
[2020-04-18] MEDS: Cyanocobalamin (B-12) 1,000 MCG TABLET PO SCH (10:22)
[2020-04-18 12:22] VITALS: BP 145/79
[2020-04-19] MEDS ORDERED: amLODIPine 5 MG TABLET PO SCH (09:00)
[2020-04-19] MEDS ORDERED: *HR* Warfarin 3 MG TABLET PO SCH (18:00)
== END 2020-04-18 13:44 | disposition home or self-care (01) ==
LOC: 2ANU
PROVIDERS: ADMIT Internal Medicine Clinical Cardiac Electrophysiology; ATTEND Internal Medicine Clinical Cardiac Electrophysiology

== ENCOUNTER 2020-04-29 15:45 | Observation (INO) ==
[2020-04-29 16:42] LABS: Basophils % 0.4 %; Eosinophils # 0.1 K/mcL (0.0-0.6); Eosinophils % 2.5 %; Hematocrit 40.2 % (35.3-44.9); Hemoglobin 12.7 g/dL (11.5-15.4); Immature Granulocytes % 0.2 % (0-4); Lymphocytes # 1.7 K/mcL (0.6-4.6); Lymphocytes % 29.5 %; Mean Corpuscular HGB Conc 31.6 g/dL (31.6-35.5); Mean Corpuscular Hemoglobin 29.7 pg (28.0-33.3); Mean Corpuscular Volume 93.9 fL (83.0-100.0); Mean Platelet Volume 11.6 fL (9.4-12.4); Monocytes # 0.6 K/mcL (0.0-1.3); Monocytes % 10.9 %; Neutrophils # 3.2 K/mcL (1.6-8.9); Platelet Count 236 K/mcL (140-400); Red Blood Count 4.28 M/mcL (3.82-4.97); Red Cell Distribution Width 14.1 % (11.5-14.5); Segmented Neutrophils % 56.5 %
[2020-04-29] MEDS: Nitroglycerin 0.4 MG TAB.SUBL SL PRN ×2 (16:48→16:53)
[2020-04-29 16:49] LABS: INR 2.9; Prothrombin Time 33.3 Seconds (9.4-12.1)
[2020-04-29 16:58] LABS: White Blood Count 5.6 K/mcL (4.3-11.1)
[2020-04-29 17:03] LABS: BUN/Creatinine Ratio 7 (6-26); Blood Urea Nitrogen 7 mg/dL (8-23); Calcium 9.7 mg/dL (8.6-10.3); Carbon Dioxide 29 mEq/L (23-29); Chloride 103 mEq/L (98-107); Glucose 104 mg/dL (70-105); Osmolality,Calculated 286 (280-300); Potassium 3.3 mEq/L (3.5-5.1); Sodium 139 mEq/L (136-145); Troponin I < 0.03 ng/mL (< 0.04); eGFR For African Americans > 60 (> 60); eGFR For Non-African Americans 57 (> 60)
[2020-04-29] MEDS ORDERED: Isovue-370 500 ML BOTTLE IVP ONE (17:15)
[2020-04-29 17:34] LABS: Bilirubin,Urine Negative (Negative); Blood,Urine Negative (Negative); Clarity,Urine Clear (Clear); Color,Urine Colorless (Yellow); Glucose,Urine (UA) Normal (Normal); Ketones,Urine Negative (Negative); Leukocyte Esterase,Urine Negative (Negative); Nitrite,Urine Negative (Negative); Protein,Urine Negative (Neg-Trace); Specific Gravity,Urine 1.011 (1.010-1.025); Urobilinogen,Urine Normal (Normal)
[2020-04-29] MEDS ORDERED: *HR* LORazepam 0.5 MG TABLET PO ONE (17:41)
[2020-04-29] MEDS ORDERED: Ondansetron 4 MG/2 ML VIAL IVP PRN ×2 (19:28→22:07)
[2020-04-29] MEDS ORDERED: Naloxone 0.4 MG/ML INJ IVP PRN (19:28)
[2020-04-29] MEDS ORDERED: 0.9 % Sodium Chloride 1,000 ML IVC SCH (19:30)
[2020-04-29] MEDS ORDERED: Potassium Chloride Elixir 20 MEQ/15 ML UDC PO ONE (19:35)
[2020-04-29] MEDS ORDERED: Acetaminophen 325 MG TABLET PO PRN (19:48)
[2020-04-29] MEDS ORDERED: *HR* Warfarin 3 MG TABLET PO ONE (20:15)
[2020-04-29 21:07] LABS: Adenovirus Not Detected (Not Detect); Coronavirus 229E Not Detected (Not Detect); Coronavirus HKU1 Not Detected (Not Detect); Coronavirus NL63 Not Detected (Not Detect); Coronavirus OC43 Not Detected (Not Detect)
[2020-04-29 21:08] LABS: Bordetella Pertussis Not Detected (Not Detect); Chlamydophila pneumoniae Not Detected (Not Detect); Human Metapneumovirus Not Detected (Not Detect); Human Rhinovirus/Enterovirus Not Detected (Not Detect); Influenza A Subtype 2009 H1 Not Detected (Not Detect); Influenza B Not Detected (Not Detect); Mycoplasma pneumoniae Not Detected (Not Detect); Parainfluenza Virus 1 Not Detected (Not Detect); Parainfluenza Virus 2 Not Detected (Not Detect); Parainfluenza Virus 3 Not Detected (Not Detect); Parainfluenza Virus 4 Not Detected (Not Detect); Respiratory Syncytial Virus Not Detected (Not Detect)
[2020-04-29] MEDS ORDERED: Nitroglycerin 0.4 MG TAB.SUBL SL PRN (22:04)
[2020-04-29] MEDS ORDERED: LIDOCAINE HCL APPL TP PRN (22:04)
[2020-04-29] MEDS ORDERED: Albuterol 2.5 MG/3 ML NEBULIZER IH PRN (22:04)
[2020-04-29] MEDS ORDERED: Loratadine 10 MG TABLET PO PRN (22:04)
[2020-04-29] MEDS ORDERED: Aspirin 325 MG TABLET PO ONE (22:10)
[2020-04-30 01:31] LABS: Basophils % 0.4 %; Eosinophils # 0.2 K/mcL (0.0-0.6); Eosinophils % 3.3 %; Hematocrit 38.4 % (35.3-44.9); Hemoglobin 11.8 g/dL (11.5-15.4); Immature Granulocytes % 0.2 % (0-4); Lymphocytes # 1.7 K/mcL (0.6-4.6); Lymphocytes % 34.8 %; Mean Corpuscular HGB Conc 30.7 g/dL (31.6-35.5); Mean Corpuscular Hemoglobin 28.8 pg (28.0-33.3); Mean Corpuscular Volume 93.7 fL (83.0-100.0); Mean Platelet Volume 11.6 fL (9.4-12.4); Monocytes # 0.5 K/mcL (0.0-1.3); Neutrophils # 2.5 K/mcL (1.6-8.9); Platelet Count 207 K/mcL (140-400); Red Cell Distribution Width 13.8 % (11.5-14.5); Segmented Neutrophils % 51.3 %; White Blood Count 4.9 K/mcL (4.3-11.1)
[2020-04-30 01:35] LABS: INR 2.8; Prothrombin Time 31.8 Seconds (9.4-12.1)
[2020-04-30 01:59] LABS: Alanine Aminotransferase 13 Units/L (7-52); Albumin/Globulin Ratio 1.8 (1.1-2.2); Alkaline Phosphatase 65 Units/L (34-104); Aspartate Amino Transferase 22 Units/L (13-39); BUN/Creatinine Ratio 7 (6-26); Bilirubin,Total 0.4 mg/dL (0.3-1.0); Blood Urea Nitrogen 6 mg/dL (8-23); Calcium 9.2 mg/dL (8.6-10.3); Carbon Dioxide 24 mEq/L (23-29); Chloride 105 mEq/L (98-107); Globulin 2.2 g/dL (2.4-3.5); Glucose 166 mg/dL (70-105); Osmolality,Calculated 293 (280-300); Potassium 3.4 mEq/L (3.5-5.1); Sodium 141 mEq/L (136-145); Total Protein 6.2 g/dL (6.4-8.9); Troponin I < 0.03 ng/mL (< 0.04); eGFR For African Americans > 60 (> 60); eGFR For Non-African Americans 59 (> 60)
[2020-04-30] MEDS ORDERED: Regadenoson 0.4 MG/5 ML SYRINGE IVP ONE (06:44)
[2020-04-30] MEDS ORDERED: amLODIPine 5 MG TABLET PO SCH (09:00)
[2020-04-30] MEDS ORDERED: Folic Acid 1 MG TABLET PO SCH (09:00)
[2020-04-30] MEDS ORDERED: Cyanocobalamin (B-12) 1,000 MCG TABLET PO SCH (09:00)
[2020-04-30 16:19] VITALS: BP 131/66
[2020-04-30] MEDS ORDERED: Warfarin perPT PO PRN (18:00)
[2020-04-30] MEDS ORDERED: *HR* Warfarin 4 MG TABLET PO ONE (18:00)
== END 2020-04-30 17:36 | disposition home or self-care (01) ==
LOC: 3BNU 15:45 → EMEROOARM 15:45 → SUATTDRO 21:12 → 3BNU 21:40
PROVIDERS: ADMIT Student in an Organized Health Care Education/Training Program; ATTEND Nurse Practitioner Adult Health

== ENCOUNTER 2020-06-03 14:49 | Inpatient (IN) ==
[2020-06-03] MEDS ORDERED: Aspirin 81 MG TAB.CHEW PO ONE (15:06)
[2020-06-03 15:20] LABS: Basophils % 0.3 %; Eosinophils # 0.2 K/mcL (0.0-0.6); Eosinophils % 2.8 %; Hematocrit 41.8 % (35.3-44.9); Hemoglobin 13.6 g/dL (11.5-15.4); Immature Granulocytes % 0.2 % (0-4); Lymphocytes # 1.8 K/mcL (0.6-4.6); Lymphocytes % 30.3 %; Mean Corpuscular HGB Conc 32.5 g/dL (31.6-35.5); Mean Corpuscular Hemoglobin 30.2 pg (28.0-33.3); Mean Corpuscular Volume 92.7 fL (83.0-100.0); Mean Platelet Volume 11.5 fL (9.4-12.4); Monocytes # 0.8 K/mcL (0.0-1.3); Monocytes % 12.6 %; Neutrophils # 3.2 K/mcL (1.6-8.9); Platelet Count 235 K/mcL (140-400); Red Blood Count 4.51 M/mcL (3.82-4.97); Red Cell Distribution Width 13.2 % (11.5-14.5); Segmented Neutrophils % 53.8 %
[2020-06-03 15:42] LABS: INR 2.1; Prothrombin Time 23.6 Seconds (9.4-12.1)
[2020-06-03 15:43] LABS: Activated Partial Thrombo Time 46.6 Seconds (26.0-36.0)
[2020-06-03 15:54] LABS: Calcium 9.9 mg/dL (8.6-10.3); Potassium 3.3 mEq/L (3.5-5.1); Troponin I 0.03 ng/mL (< 0.04)
[2020-06-03] MEDS: DilTIAZem 50 MG/50 ML IV.SOLN IVC SCH ×3 (16:00→23:27)
[2020-06-03] MEDS ORDERED: Naloxone 0.4 MG/ML INJ IVP PRN (16:24)
[2020-06-03] MEDS ORDERED: Ondansetron ODT 4 MG TAB.RAPDIS PO PRN (16:53)
[2020-06-03] MEDS ORDERED: Warfarin perPT PO PRN (18:00)
[2020-06-04 02:12] LABS: Basophils % 0.3 %; Eosinophils # 0.1 K/mcL (0.0-0.6); Eosinophils % 2.1 %; Hematocrit 39.1 % (35.3-44.9); Hemoglobin 12.8 g/dL (11.5-15.4); Immature Granulocytes % 0.2 % (0-4); Lymphocytes # 2.4 K/mcL (0.6-4.6); Lymphocytes % 39.6 %; Mean Corpuscular HGB Conc 32.7 g/dL (31.6-35.5); Mean Corpuscular Hemoglobin 29.6 pg (28.0-33.3); Mean Corpuscular Volume 90.5 fL (83.0-100.0); Mean Platelet Volume 11.7 fL (9.4-12.4); Monocytes # 0.7 K/mcL (0.0-1.3); Monocytes % 11.9 %; Neutrophils # 2.8 K/mcL (1.6-8.9); Platelet Count 214 K/mcL (140-400); Red Blood Count 4.32 M/mcL (3.82-4.97); Red Cell Distribution Width 13.2 % (11.5-14.5); Segmented Neutrophils % 45.9 %; White Blood Count 6.1 K/mcL (4.3-11.1)
[2020-06-04 02:21] LABS: INR 2.3; Prothrombin Time 26.1 Seconds (9.4-12.1)
[2020-06-04 02:42] LABS: BUN/Creatinine Ratio 13 (6-26); Blood Urea Nitrogen 9 mg/dL (8-23); Calcium 9.6 mg/dL (8.6-10.3); Carbon Dioxide 27 mEq/L (23-29); Chloride 101 mEq/L (98-107); Glucose 95 mg/dL (70-105); Osmolality,Calculated 284 (280-300); Potassium 4.1 mEq/L (3.5-5.1); Sodium 138 mEq/L (136-145); eGFR For African Americans > 60 (> 60); eGFR For Non-African Americans > 60 (> 60)
[2020-06-04] MEDS: DilTIAZem 50 MG/50 ML IV.SOLN IVC SCH (08:51)
[2020-06-04] MEDS: hydroCHLOROthiazide 25 MG TABLET PO SCH (08:52)
[2020-06-04] MEDS: Folic Acid 1 MG TABLET PO SCH (08:52)
[2020-06-04] MEDS: DilTIAZem CD (24hr) 120 MG CAP.ER.24H PO SCH (11:54)
[2020-06-04] MEDS ORDERED: Perflutren Lipid Microsphere 1.3 ML in 0.9 % Sodium Chloride 8.7 ML IVP PRN (12:19)
[2020-06-04] MEDS ORDERED: *HR* Warfarin 4 MG TABLET PO SCH (18:00)
[2020-06-04] MEDS ORDERED: *HR* Warfarin 3 MG TABLET PO SCH (19:30)
[2020-06-04] MEDS: Loratadine 10 MG TABLET PO SCH (21:58)
[2020-06-05] MEDS: *HR* Metoprolol 5 MG/5 ML VIAL IVP PRN ×2 (04:24→09:58)
[2020-06-05 06:00] LABS: Prothrombin Time 22.2 Seconds (9.4-12.1)
[2020-06-05 06:15] LABS: BUN/Creatinine Ratio 14 (6-26); Blood Urea Nitrogen 12 mg/dL (8-23); Calcium 9.6 mg/dL (8.6-10.3); Carbon Dioxide 29 mEq/L (23-29); Chloride 100 mEq/L (98-107); Glucose 114 mg/dL (70-105); Osmolality,Calculated 285 (280-300); Potassium 3.1 mEq/L (3.5-5.1); Sodium 137 mEq/L (136-145); eGFR For African Americans > 60 (> 60); eGFR For Non-African Americans > 60 (> 60)
[2020-06-05] MEDS: DilTIAZem CD (24hr) 120 MG CAP.ER.24H PO SCH (07:57)
[2020-06-05] MEDS: Folic Acid 1 MG TABLET PO SCH (07:57)
[2020-06-05] MEDS: Loratadine 10 MG TABLET PO SCH (07:57)
[2020-06-05] MEDS: hydroCHLOROthiazide 25 MG TABLET PO SCH (07:58)
[2020-06-05] MEDS ORDERED: DilTIAZem CD (24hr) 120 MG CAP.ER.24H PO ONE (10:30)
[2020-06-05] MEDS ORDERED: *HR* LORazepam 0.5 MG TABLET PO PRN (14:55)
[2020-06-05] MEDS ORDERED: Loratadine 10 MG TABLET PO PRN (14:55)
[2020-06-05] MEDS ORDERED: Acetaminophen 325 MG TABLET PO PRN (16:38)
[2020-06-05] MEDS ORDERED: *HR* Warfarin 3 MG TABLET PO SCH (18:00)
[2020-06-05] MEDS ORDERED: *HR* Warfarin 4 MG TABLET PO ONE (18:00)
[2020-06-06] MEDS ORDERED: *HR* Metoprolol 5 MG/5 ML VIAL IVP ONE (04:06)
[2020-06-06 06:38] LABS: BUN/Creatinine Ratio 13 (6-26); Blood Urea Nitrogen 12 mg/dL (8-23); Calcium 9.9 mg/dL (8.6-10.3); Carbon Dioxide 27 mEq/L (23-29); Chloride 103 mEq/L (98-107); Glucose 108 mg/dL (70-105); Magnesium 1.8 mg/dL (1.6-2.6); Osmolality,Calculated 290 (280-300); Phosphorous 3.5 mg/dL (2.7-4.5); Potassium 3.3 mEq/L (3.5-5.1); Sodium 140 mEq/L (136-145); eGFR For African Americans > 60 (> 60); eGFR For Non-African Americans 58 (> 60)
[2020-06-06 06:43] LABS: INR 2.3; Prothrombin Time 26.5 Seconds (9.4-12.1)
[2020-06-06] MEDS: hydroCHLOROthiazide 25 MG TABLET PO SCH (07:52)
[2020-06-06] MEDS: Folic Acid 1 MG TABLET PO SCH (07:52)
[2020-06-06] MEDS: *HR* Metoprolol 5 MG/5 ML VIAL IVP PRN (08:18)
[2020-06-06] MEDS ORDERED: DilTIAZem CD (24hr) 240 MG CAP.ER.24H PO SCH (09:00)
[2020-06-06 15:16] VITALS: BP 100/64
[2020-06-06] MEDS ORDERED: *HR* Warfarin 3 MG TABLET PO ONE (18:00)
[2020-06-07] MEDS ORDERED: *HR* Amiodarone 200 MG TABLET PO SCH (09:00)
[2020-06-10] MEDS ORDERED: *HR* Warfarin 3 MG TABLET PO SCH (18:00)
== END 2020-06-06 16:31 | disposition home or self-care (01) | DRG 309 ==
LOC: 2ANU 14:49 → EMEROOARM 14:49 → SUATTDRO 18:13 → 2ANU 18:40
PROVIDERS: ADMIT Internal Medicine; ATTEND Internal Medicine